=== PATIENT | female | born 1995 | race Hispanic/Latino ===

== ENCOUNTER 2018-02-24 00:09 | Emergency (ER) | payer SELFPAY ==
[2018-02-24 01:09] LABS: Absolute Lymphocytes (CBC) 1.5 K/uL (0.7-4.9); Absolute Monocytes 0.7 K/uL (0.1-1.3); Absolute Neutrophil 8.7 K/uL (1.8-8.0); Basophils % 0.1 % (0-1.3); Eosinophils % 0.1 % (0-4.4); Hematocrit 39.1 % (36.0-45.0); Lymphocytes % 13.4 % (15.3-44.8); MCH 31.1 pg (27.0-35.0); MCV 92.7 fL (80-100); MPV 7.7 fL (7.6-11.3); Monocytes % 6.3 % (3.3-12.3); RBC Red Blood Cell Count 4.22 M/uL (3.86-4.86)
[2018-02-24] MEDS ORDERED: NA CHLORIDE 0.9% 1,000 ML ONE (01:10)
[2018-02-24 01:13] LABS: Protime INR 1.08
[2018-02-24 01:22] LABS: Urine Blood 2+ (NEG); Urine Glucose NEGATIVE (NEG); Urine Protein 1+ (NEG); Urine Specific Gravity 1.025 (1.005-1.030)
[2018-02-24 01:23] LABS: Bicarbonate 26 mEq/L (21-31); Glucose Level 124 mg/dL (65-120); Potassium 3.1 mEq/L (3.6-5.0); Sodium Level 134 mEq/L (135-145)
[2018-02-24 01:29] LABS: ALT/SGPT 11 IU/L (10-60); AST/SGOT 18 IU/L (10-42); Albumin 4.8 g/dL (3.2-5.5); Alkaline Phosphatase 56 IU/L (42-121); BUN Blood Urea Nitrogen 14 mg/dL (6-20); Bilirubin Direct < 0.1 mg/dL (0-0.2); Bilirubin Total 0.5 mg/dL (0.3-1.2); Protein, Total 8.3 g/dL (6.0-8.3)
[2018-02-24 01:45] LABS: Barbiturates NEGATIVE; Benzodiazepines NEGATIVE; Cocaine NEGATIVE; METHAMPHETAM NEGATIVE; Opiates POSITIVE; Phencyclidine NEGATIVE; THC Cannibis NEGATIVE
[2018-02-24] MEDS ORDERED: NS KCL 20MEQ 1,000 ML IV ONE (02:17)
[2018-02-24] MEDS ORDERED: POTASSIUM CL SA 10 MEQ TAB PO ONE (02:37)
[2018-02-24 02:50] LABS: Alcohol Serum/Plasma < 10 mg/dl; Salicylates Level < 4.0 mg/dl (<30)
[2018-02-24] MEDS ORDERED: ONDANSETRON 4 MG/2 ML VIAL ONE (03:13)
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
--- NOTE | 2018-02-24 10:08 | EKG ---
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
== END 2018-02-24 05:09 | disposition home or self-care (01) ==
LOC: ER 00:09
DX: F43.21 Adjustment disorder with depressed mood (principal); T50.901A Poisoning by unspecified drugs, medicaments and biological substances, accidental (unintentional), initial encounter; Z91.040 Latex allergy status; Z91.048 Other nonmedicinal substance allergy status
CPT/HCPCS: 36415; 80048; 80076; 80307; 80320; 80329; 81003; 81025; 85025; 85610; 85730; 93005; 96361; 96374; 99285; J2405; J7030

== ENCOUNTER 2018-04-23 03:33 | Emergency (ER) | payer SELFPAY ==
[2018-04-23] MEDS ORDERED: ONDANSETRON 4 MG/2 ML VIAL ONE ×2 (04:33→06:20)
[2018-04-23 04:45] LABS: Absolute Lymphocytes (CBC) 0.6 K/uL (0.7-4.9); Absolute Monocytes 0.9 K/uL (0.1-1.3); Absolute Neutrophil 13.5 K/uL (1.8-8.0); Basophils % 0.1 % (0-1.3); Eosinophils % 0.4 % (0-4.4); Hematocrit 39.7 % (36.0-45.0); Lymphocytes % 4.1 % (15.3-44.8); MCH 31.6 pg (27.0-35.0); MCV 94.2 fL (80-100); MPV 7.6 fL (7.6-11.3); Monocytes % 5.9 % (3.3-12.3); RBC Red Blood Cell Count 4.22 M/uL (3.86-4.86)
[2018-04-23 05:07] LABS: Bicarbonate 26 mEq/L (21-31); Glucose Level 113 mg/dL (65-120); Lipase 29 U/L (22-51); Potassium 3.6 mEq/L (3.6-5.0); Sodium Level 138 mEq/L (135-145)
[2018-04-23 05:14] LABS: ALT/SGPT 10 IU/L (10-60); AST/SGOT 19 IU/L (10-42); Albumin 4.3 g/dL (3.2-5.5); Alkaline Phosphatase 50 IU/L (42-121); Amylase Level 118 U/L (28-100); BUN Blood Urea Nitrogen 16 mg/dL (6-20); Bilirubin Direct 0.1 mg/dL (0-0.2); Bilirubin Total 0.4 mg/dL (0.3-1.2); Protein, Total 7.8 g/dL (6.0-8.3)
[2018-04-23 05:34] LABS: Urine Culture Reflex Order NOT NEEDED
[2018-04-23 05:36] LABS: Urine Bacteria >50 /HPF (<20); Urine Mucus 4+ /HPF (NONE SEEN); Urine RBC <5 /HPF (NONE SEEN)
[2018-04-23 05:36] LABS: Urine Specific Gravity 1.025 (1.005-1.030)
[2018-04-23 05:37] LABS: Urine Blood NEGATIVE (NEG); Urine Glucose NEGATIVE (NEG); Urine Protein 1+ (NEG); Urine Specific Gravity 1.025 (1.005-1.030)
[2018-04-23 05:39] LABS: Blood Morphology Comment NOT SEEN (NOT SEEN); Platelet Estimate ADEQ
[2018-04-23] MEDS ORDERED: FENTANYL CITR 100 MCG/2 ML ONE (06:46)
[2018-04-23] MEDS ORDERED: KETOROLAC 30 MG/ML INJ ONE (07:26)
[2018-04-23] MEDS ORDERED: NA CHLORIDE 0.9% 1,000 ML ONE (07:26)
--- NOTE | 2018-04-23 08:55 | EDPHYS ---
Physician Documentation [facility] Name: Blank Armenta Age: 22 yrs Sex: Female : 1995 Arrival Date: 04/23/2018 Time: 03:36 Bed 19 Private MD: None, None ED Physician Timoteo Marin HPI: 04/23 04:39 This 22 yrs old Female presents to ER via Ambulatory with complaints of kira Vomiting, Abdominal Pain. 04:39 The patient presents to the emergency department with nausea, vomiting, that is kira continuous. Onset: The symptoms/episode began/occurred this morning, yesterday. Possible causes: unknown. The symptoms are aggravated by nothing. The symptoms are alleviated by nothing. Associated signs and symptoms: The patient has no apparent associated signs or symptoms. Severity of symptoms: At their worst the symptoms were mild moderate in the emergency department the symptoms are unchanged. The patient has experienced a previous episode. 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 - Social history:: Smoking status: Patient/guardian denies using tobacco, Patient/guardian denies using alcohol, street drugs. - Ebola Screening: : No symptoms or risks identified at this time. ROS: 04:41 Constitutional: Negative for fever, chills, and weight loss, Eyes: Negative for injury, kira pain, redness, and discharge, ENT: Negative for injury, pain, and discharge, Neck: Negative for injury, pain, and swelling, Cardiovascular: Negative for chest pain, palpitations, and edema, Respiratory: Negative for shortness of breath, cough, wheezing, and pleuritic chest pain, Back: Negative for injury and pain, : Negative for injury, bleeding, discharge, and swelling, MS/Extremity: Negative for injury and deformity, Skin: Negative for injury, rash, and discoloration, Neuro: Negative for headache, weakness, numbness, tingling, and seizure, Psych: Negative for depression, anxiety, suicide ideation, homicidal ideation, and hallucinations, Allergy/Immunology: Negative for hives, rash, and allergies, Endocrine: Negative for neck swelling, polydipsia, polyuria, polyphagia, and marked weight changes, Hematologic/Lymphatic: Negative for swollen nodes, abnormal bleeding, and unusual bruising. 04:41 Abdomen/GI: Positive for abdominal pain, nausea and vomiting, of the right upper quadrant, left upper quadrant, right lower quadrant and left lower quadrant. Exam: 04:41 Constitutional: This is a well developed, well nourished patient who is awake, alert, kira and in no acute distress. Head/Face: Normocephalic, atraumatic. Eyes: Pupils equal round and reactive to light, extra-ocular motions intact. Lids and lashes normal. Conjunctiva and sclera are non-icteric and not injected. Cornea within normal limits. Periorbital areas with no swelling, redness, or edema. ENT: Nares patent. No nasal discharge, no septal abnormalities noted. Tympanic membranes are normal and external auditory canals are clear. Oropharynx with no redness, swelling, or masses, exudates, or evidence of obstruction, uvula midline. Mucous membranes moist. Neck: Trachea midline, no thyromegaly or masses palpated, and no cervical lymphadenopathy. Supple, full range of motion without nuchal rigidity, or vertebral point tenderness. No Meningismus. Chest/axilla: Normal chest wall appearance and motion. Nontender with no deformity. No lesions are appreciated. Cardiovascular: Regular rate and rhythm with a normal S1 and S2. No gallops, murmurs, or rubs. Normal PMI, no JVD. No pulse deficits. Respiratory: Lungs have equal breath sounds bilaterally, clear to auscultation and percussion. No rales, rhonchi or wheezes noted. No increased work of breathing, no retractions or nasal flaring. Abdomen/GI: Soft, non-tender, with normal bowel sounds. No distension or tympany. No guarding or rebound. No evidence of tenderness throughout. 04:41 Back: No spinal tenderness. No costovertebral tenderness. Full range of motion. Vital Signs: 03:57 BP 113 / 80; Pulse 108; Resp 18 S; Temp 99(O); Pulse Ox 100% on R/A; Weight 45.36 kg bb (R); Height 5 ft. 0 in. (152.40 cm) (R); Pain 7/10; 04:44 BP 110 / 78; Pulse 110; Resp 18; Pulse Ox 99% ; ea 06:27 BP 109 / 68; Pulse 90; Resp 18 S; Pulse Ox 99% on R/A; ea 07:32 BP 101 / 68; Pulse 87; Resp 16; Temp 99; Pulse Ox 99% ; sv 08:38 BP 94 / 64; Pulse 70; Resp 16; Pulse Ox 98% ; sv 03:57 Body Mass Index 19.53 (45.36 kg, 152.40 cm) bb MDM: 04:10 Patient medically screened. [facility] 05:53 Data reviewed: vital signs, nurses notes, lab test result(s), amylase and lipase, [facility] urinalysis. 06:49 Counseling: I had a detailed discussion with the patient and/or guardian regarding: the snw historical points, exam findings, and any diagnostic results supporting the discharge/admit diagnosis. Awaiting: CT scan results, awaiting results, pt c/o pain. Fentanyl 25mcg iv given. 04/23 04:10 Order name: Amylase, Serum; Complete Time: 05:51 04/23 04:10 Order name: Basic Metabolic Panel; Complete Time: 05:51 04/23 04:10 Order name: CBC with Diff; Complete Time: 05:51 04/23 04:10 Order name: Creatinine for Radiology; Complete Time: 05:51 04/23 04:10 Order name: Hepatic Function; Complete Time: 05:51 04/23 04:10 Order name: Lipase; Complete Time: 05:51 04/23 04:10 Order name: Urine Microscopic Only; Complete Time: 05:51 04/23 04:10 Order name: Amylase, Serum [facility] 04/23 04:10 Order name: Basic Metabolic Panel [facility] 04/23 04:10 Order name: CBC with Diff [facility] 04/23 04:10 Order name: Creatinine for Radiology [facility] 04/23 04:10 Order name: Hepatic Function [facility] 04/23 04:10 Order name: Lipase [facility] 04/23 04:10 Order name: Urine Microscopic Only [facility] 04/23 04:10 Order name: IV Saline Lock; Complete Time: 04:52 04/23 04:10 Order name: Labs collected and sent; Complete Time: 04:52 04/23 04:10 Order name: Urine Dipstick-Ancillary (obtain specimen); Complete Time: 04:52 ea 04/23 04:10 Order name: Urine Test (obtain specimen); Complete Time: 04:16 kira 04/23 04:10 Order name: IV Saline Lock; Complete Time: 04:40 kira 04/23 04:10 Order name: Urine Culture [facility] 04/23 04:17 Order name: Urine Dipstick--Ancillary (enter results); Complete Time: 05:51 oe 04/23 04:18 Order name: Urine --Ancillary (enter results) 04/23 04:19 Order name: Urine --Ancillary; Complete Time: 05:51 EDMS 04/23 04:39 Order name: CT Abd/Pelvis - W/Contrast: iv only [facility] 04/23 05:01 Order name: Manual Differential; Complete Time: 05:51 EDMS 04/23 04:10 Order name: Labs collected and sent; Complete Time: 04:40 [facility] 04/23 04:10 Order name: Urine Dipstick-Ancillary (obtain specimen); Complete Time: 04:16 [facility] Administered Medications: 04:40 Drug: NS 0.9% 1000 ml Route: IV; Rate: 1 bolus; Site: left antecubital; ea 04:40 Drug: Zofran 4 mg Route: IVP; Site: left antecubital; ea 05:05 Follow up: Response: No adverse reaction; Marked relief of symptoms ea 06:50 Drug: fentaNYL (PF) 25 mcg Route: IVP; Site: left antecubital; ea 07:30 Follow up: Response: No adverse reaction sv 07:29 Drug: NS 0.9% 1000 ml Route: IV; Rate: 1 bolus; Site: left antecubital; sv 08:20 Follow up: Response: No adverse reaction; IV Status: Completed infusion; IV Intake: sv 1000ml 07:30 Drug: TORadol 30 mg Route: IVP; Site: left antecubital; sv 08:00 Follow up: Response: No adverse reaction sv Disposition: 04/23/18 08:54 Discharged to Home. Impression: Abdominal tenderness, Vomiting, Elevated white blood cell count. - Condition is Stable. - Discharge Instructions: Abdominal Pain, Adult, Nausea and Vomiting, Abdominal Pain, Adult, [id number]. - Prescriptions for Bentyl 20 mg Oral Tablet - take 1 tablet by ORAL route every 6 hours As needed; 20 tablet. Zofran 4 mg Oral Tablet - take 1 tablet by ORAL route every 12 hours As needed; 20 tablet. Pepcid 20 mg Oral Tablet - take 1 tablet by ORAL route every 12 hours for 10 days; 14 tablet. - Medication Reconciliation Form, Thank You Letter, Antibiotic Education, Prescription Opioid Use form. - Follow up: Private Physician; When: 2 - 3 days; Reason: Recheck today's complaints, Continuance of care, Re-evaluation by your physician. - Problem is new. - Symptoms have improved. Signatures: Dispatcher [employer] EDMS Sandy Murry, RN RN Timoteo Fox MD MD cha Therrien, Shelly, APPRAISER ART-C APPRAISER ART-Csnw Kiesha Thao, RN RN Vaishali Casper RN RN taina Corrections: (The following items were deleted from the chart) 09:04 08:54 04/23/2018 08:54 Discharged to Home. Impression: Abdominal tenderness; Vomiting; sv Elevated white blood cell count. Condition is Stable. Discharge Instructions: Abdominal Pain, Adult, Nausea and Vomiting, Abdominal Pain, Adult, [id number]. Prescriptions for Bentyl 20 mg Oral Tablet - take 1 tablet by ORAL route every 6 hours As needed; 20 tablet, Zofran 4 mg Oral Tablet - take 1 tablet by ORAL route every 12 hours As needed; 20 tablet, Pepcid 20 mg Oral Tablet - take 1 tablet by ORAL route every 12 hours for 10 days; 14 tablet. and Forms are Medication Reconciliation Form, Thank You Letter, Antibiotic Education, Prescription Opioid Use. Follow up: Private Physician; When: 2 - 3 days; Reason: Recheck today's complaints, Continuance of care, Re-evaluation by your physician. Problem is new. Symptoms have improved. snw
--- NOTE | 2018-04-23 08:55 | ER ---
Nurse's Notes [facility] Name: Blank Armenta Age: 22 yrs Sex: Female : 1995 Arrival Date: 04/23/2018 Time: 03:36 Bed 19 Private MD: None, None Diagnosis: Abdominal tenderness;Vomiting;Elevated white blood cell count Presentation: 04/23 03:55 Presenting complaint: Patient states: she vomited x 1 yesterday but has vomited many bb times since 2300 last night and has lower abdominal pain. Transition of care: patient was not received from another setting of care. Onset of symptoms was April 22, 2018. Risk Assessment: Do you want to hurt yourself or someone else? Patient reports no desire to harm self or others. Initial Sepsis Screen: Does the patient meet any 2 criteria? No. Patient's initial sepsis screen is negative. Does the patient have a suspected source of infection? No. Patient's initial sepsis screen is negative. Care prior to arrival: None. 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 - Social history:: Smoking status: Patient/guardian denies using tobacco, Patient/guardian denies using alcohol, street drugs. - Ebola Screening: : No symptoms or risks identified at this time. Screenin:40 Abuse screen: Denies threats or abuse. Nutritional screening: No deficits noted. ea Tuberculosis screening: No symptoms or risk factors identified. Fall Risk None identified. Assessment: 04:00 General: Appears uncomfortable, Behavior is calm, cooperative, appropriate for age. ea Pain: Complains of pain in right lower quadrant and left lower quadrant Pain currently is 9 out of 10 on a pain scale. Quality of pain is described as aching, crampy. Neuro: Level of Consciousness is awake, alert, obeys commands, Oriented to person, place, time, situation. Cardiovascular: Heart tones S1 S2 present Patient's skin is warm and dry. Respiratory: Airway is patent Breath sounds are clear. GI: Abdomen is distended, Bowel sounds present X 4 quads. Abd is soft and non tender. GI: Reports nausea, vomiting. : No signs and/or symptoms were reported regarding the genitourinary system. EENT: No signs and/or symptoms were reported regarding the EENT system. Derm: Skin is pink, warm \T\ dry. Musculoskeletal: No deficits noted. 05:06 Reassessment: Patient and/or family updated on plan of care and expected duration. Pain ea level reassessed. Pt resting with eyes closed, respirations even and unlabored, chest expansions even and symmetrical. 05:30 Reassessment: Pt taken to CT. ea 06:26 Reassessment: Patient and/or family updated on plan of care and expected duration. Pain ea level reassessed. Patient is alert, oriented x 3, equal unlabored respirations, skin warm/dry/pink. awaiting on results. 07:30 Reassessment: Patient appears in no apparent distress at this time. Patient and/or sv family updated on plan of care and expected duration. Pain level reassessed. Patient is alert, oriented x 3, equal unlabored respirations, skin warm/dry/pink. 08:38 Reassessment: Patient appears in no apparent distress at this time. Patient and/or sv family updated on plan of care and expected duration. Pain level reassessed. Patient is alert, oriented x 3, equal unlabored respirations, skin warm/dry/pink. Patient states feeling better. Patient states symptoms have improved. 09:03 Reassessment: Patient appears in no apparent distress at this time. Patient and/or sv family updated on plan of care and expected duration. Pain level reassessed. Patient is alert, oriented x 3, equal unlabored respirations, skin warm/dry/pink. Patient states feeling better. Patient states symptoms have improved. Vital Signs: 03:57 BP 113 / 80; Pulse 108; Resp 18 S; Temp 99(O); Pulse Ox 100% on R/A; Weight 45.36 kg bb (R); Height 5 ft. 0 in. (152.40 cm) (R); Pain 7/10; 04:44 BP 110 / 78; Pulse 110; Resp 18; Pulse Ox 99% ; ea 06:27 BP 109 / 68; Pulse 90; Resp 18 S; Pulse Ox 99% on R/A; ea 07:32 BP 101 / 68; Pulse 87; Resp 16; Temp 99; Pulse Ox 99% ; sv 08:38 BP 94 / 64; Pulse 70; Resp 16; Pulse Ox 98% ; sv 03:57 Body Mass Index 19.53 (45.36 kg, 152.40 cm) bb ED Course: 03:36 Patient arrived in ED. es 03:36 None, None is Private Physician. es 03:57 Triage completed. bb 03:57 Arm band placed on Patient placed in an exam room, on a stretcher, on pulse oximetry. bb Family accompanied patient. 04:00 Bed in low position. Call light in reach. Side rails up X2. ea 04:00 Inserted saline lock: 22 gauge in left antecubital area, using aseptic technique. Blood ea collected. 04:06 Vaishali Grewal, LANG is Primary Nurse. ea 04:09 Timoteo Marin MD is Attending Physician. kira 05:[address] via wheelchair. kw1 05:40 CT completed. Patient tolerated procedure well. Patient moved back from CT. kw1 05:41 CT Abd/Pelvis - W/Contrast: iv only In Process Unspecified. EDMS 06:31 Abi Dickerson FNP-C is [facility]. snw 07:13 Report given to Sandy CROFT. ea 07:56 Urine --Ancillary (enter results) Sent. sv 07:56 Amylase, Serum Sent. sv 07:56 Basic Metabolic Panel Sent. sv 07:56 CBC with Diff Sent. sv 07:56 Hepatic Function Sent. sv 07:56 Lipase Sent. sv 07:56 Creatinine for Radiology Sent. sv 08:27 Primary Nurse role handed off by Vaishali Grewal, LANG sv 08:27 Sandy Murry RN is Primary Nurse. sv 09:04 No provider procedures requiring assistance completed. IV discontinued, intact, sv bleeding controlled, No redness/swelling at site. Pressure dressing applied. Administered Medications: 04:40 Drug: NS 0.9% 1000 ml Route: IV; Rate: 1 bolus; Site: left antecubital; ea 04:40 Drug: Zofran 4 mg Route: IVP; Site: left antecubital; ea 05:05 Follow up: Response: No adverse reaction; Marked relief of symptoms ea 06:50 Drug: fentaNYL (PF) 25 mcg Route: IVP; Site: left antecubital; ea 07:30 Follow up: Response: No adverse reaction sv 07:29 Drug: NS 0.9% 1000 ml Route: IV; Rate: 1 bolus; Site: left antecubital; sv 08:20 Follow up: Response: No adverse reaction; IV Status: Completed infusion; IV Intake: sv 1000ml 07:30 Drug: TORadol 30 mg Route: IVP; Site: left antecubital; sv 08:00 Follow up: Response: No adverse reaction sv Intake: 08:20 IV: 1000ml; Total: 1000ml. sv Outcome: 08:54 Discharge ordered by MD. snw 09:04 Discharged to home ambulatory, with family. sv 09:04 Condition: stable 09:04 Discharge instructions given to patient, Instructed on discharge instructions, follow up and referral plans. medication usage, Demonstrated understanding of instructions, follow-up care, medications, Prescriptions given X 3. 09:04 Patient left the ED. sv Signatures: Dispatcher [employer] Sandy Stone, Timoteo Johnson RN, MD MD cha Therrien, Shelly, FISHING CAPTAIN-C FISHING CAPTAIN-Csnw Rose Vazquez Brenda, RN RN bb Antunez, Elena, RN RN ea Wilhelm, Kimberly kw1 Corrections: (The following items were deleted from the chart) 07:33 07:32 Temp 99F; sv sv
--- NOTE | 2018-04-23 10:08 | RAD REPORT ---
EXAM DESCRIPTION: CT - Abdomen Pelvis W Contrast - 04/23/2018 6:49 am CLINICAL HISTORY: Abdominal pain, vomiting, diarrhea A preliminary written report was provided at the time of the study, and the report was reviewed prio r to final dictation. COMPARISON: CT imaging March 2016 TECHNIQUE: Biphasic, helical CT imaging of the abdomen and pelvis was performed following 100 ml non -ionic IV contrast. No oral contrast was given. All CT scans are performed using dose optimization technique as appropriate and may include automated exposure control or mA/KV adjustment according to patient size. FINDINGS: No suspicious findings in the lung bases. The liver, spleen, and pancreas show no suspicious findings. Gallbladder and biliary tree are also wi thout suspicious finding. Symmetric renal function is seen with no hydronephrosis or suspicious renal mass. No pyelonephritis o r acute renal parenchymal process. No urinary bladder abnormality. Uterus and right ovary show no corrine picious findings. Posterior left pelvis shows probable involuting cyst of the left ovary. Primary ova per process is not suspected. Fluid is retained within the stomach. No gastric wall thickening or mass. Numerous prominent small tatiana wel loops. Each monreal of the jejunum are thickened. Overall small bowel monreal are prominent. Liquid s tool is present throughout much of the colon. No mass lesions seen. No free air, free fluid or pneuma tosis. No hernia, mass or bulky lymphadenopathy. No adrenal abnormality. No suspicious bony findings. IMPRESSION: Moderate small bowel enteritis pattern which may include colon to a lesser degree. No obstruction, free air or surgically emergent finding.
== END 2018-04-23 09:04 | disposition home or self-care (01) ==
LOC: ER 03:33
DX: R11.10 Vomiting, unspecified (principal); D72.829 Elevated white blood cell count, unspecified; Z91.040 Latex allergy status; Z91.048 Other nonmedicinal substance allergy status
CPT/HCPCS: 36415; 74177; 80048; 80076; 81003; 81015; 81025; 82150; 83690; 85025; 87077; 87086; 87088; 87186; 96361; 96374; 96375; 99284; J2405; J3010; J7030; Q9967

== ENCOUNTER 2018-07-28 23:19 | Emergency (ER) | payer SELFPAY ==
[2018-07-29 00:44] LABS: Absolute Lymphocytes (CBC) 2.5 K/uL (0.7-4.9); Absolute Monocytes 0.4 K/uL (0.1-1.3); Absolute Neutrophil 4.1 K/uL (1.8-8.0); Basophils % 0.3 % (0-1.3); Eosinophils % 1.1 % (0-4.4); Hematocrit 33.1 % (36.0-45.0); Lymphocytes % 35.3 % (15.3-44.8); MCH 33.7 pg (27.0-35.0); MCV 94.6 fL (80-100); MPV 8.1 fL (7.6-11.3); Monocytes % 6.1 % (3.3-12.3)
[2018-07-29 01:06] LABS: BUN Blood Urea Nitrogen 13 mg/dL (7-18); Bicarbonate 25 mmol/L (21-32); Glucose Level 85 mg/dL (74-106); Potassium 3.4 mmol/L (3.5-5.1); Sodium Level 137 mmol/L (136-145)
[2018-07-29 01:13] LABS: HCG, Quantitative 91944 mIU/mL (1-3)
[2018-07-29 01:39] LABS: Urine Blood NEGATIVE (NEG); Urine Glucose NEGATIVE (NEG); Urine Protein NEGATIVE (NEG)
--- NOTE | 2018-07-29 03:28 | EDPHYS ---
Physician Documentation [facility] Name: Blank Armenta Age: 22 yrs Sex: Female : 1995 Arrival Date: 07/28/2018 Time: 23:24 Bed 6 Private MD: ED Physician Joey Hu HPI: 07/28 23:55 This 22 yrs old Female presents to ER via Ambulatory with complaints of ps1 Abdominal Pain, Nausea/Vomiting, preg 11wks. 23:55 patient recently evaluated in [place] for abdominal pain and sent home with ps1 possible bacteria in stomach. Patient states she has not had a ultrasound. Pain in LLQ. Associated with nausea and vomiting. . 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 - Social history:: Smoking status: Patient/guardian denies using tobacco. - Ebola Screening: : No symptoms or risks identified at this time. ROS: 23:55 Constitutional: Negative for fever, chills, and weight loss, Eyes: Negative for injury, ps1 pain, redness, and discharge, Cardiovascular: Negative for chest pain, palpitations, and edema, Respiratory: Negative for shortness of breath, cough, wheezing, and pleuritic chest pain. 23:55 : Negative for injury, bleeding, discharge, and swelling, MS/Extremity: Negative for injury and deformity, Skin: Negative for injury, rash, and discoloration, Neuro: Negative for headache, weakness, numbness, tingling, and seizure. 23:55 Abdomen/GI: Positive for abdominal pain, nausea and vomiting. Exam: 23:55 Constitutional: This is a well developed, well nourished patient who is awake, alert, ps1 and in no acute distress. Head/Face: Normocephalic, atraumatic. Eyes: Pupils equal round and reactive to light, extra-ocular motions intact. Lids and lashes normal. Conjunctiva and sclera are non-icteric and not injected. Cardiovascular: Regular rate and rhythm. No gallops, murmurs, or rubs. Normal PMI, no JVD. No pulse deficits. Respiratory: Lungs have equal breath sounds bilaterally, clear to auscultation and percussion. No rales, rhonchi or wheezes noted. No increased work of breathing, no retractions or nasal flaring. Skin: Warm, dry with normal turgor. Normal color with no rashes, no lesions, and no evidence of cellulitis. MS/ Extremity: Pulses equal, no cyanosis. Neurovascular intact. Full, normal range of motion. Neuro: Awake and alert, GCS 15, oriented to person, place, time, and situation. Cranial nerves II-XII grossly intact. Sensory grossly intact. 23:55 Abdomen/GI: Inspection: abdomen appears normal, Bowel sounds: normal, Palpation: mild abdominal tenderness, in the left lower quadrant. Vital Signs: 23:41 BP 102 / 64; Pulse 77; Resp 18; Temp 97.8; Pulse Ox 100% on R/A; Weight 36.29 kg; ea Height 5 ft. (152.40 cm); Pain 7/10; 07/29 00:30 BP 106 / 62; Pulse 64; Resp 18; Pulse Ox 98% on R/A; ea 01:30 BP 110 / 66; Pulse 70; Resp 18; Pulse Ox 99% on R/A; ea 02:30 BP 100 / 60; Pulse 68; Resp 18; Pulse Ox 98% on R/A; ea 03:44 BP 99 / 65; Pulse 65; Resp 18; Pulse Ox 99% on R/A; tl2 07/28 23:41 Body Mass Index 15.62 (36.29 kg, 152.40 cm) ea MDM: 00:00 Patient medically screened. ps1 03:30 Data reviewed: vital signs, nurses notes, lab test result(s), radiologic studies, ps1 ultrasound, and as a result, I will discharge patient. Counseling: I had a detailed discussion with the patient and/or guardian regarding: the historical points, exam findings, and any diagnostic results supporting the discharge/admit diagnosis, lab results, the need for outpatient follow up, an OB/Gyne specialist. 07/28 23:55 Order name: Quantitative Hcg; Complete Time: 01:14 ps1 07/28 23:55 Order name: Abo/rh Typing; Complete Time: 02:33 ps1 07/28 23:55 Order name: Basic Metabolic Panel; Complete Time: 01:14 ps1 07/28 23:55 Order name: CBC with Diff; Complete Time: 00:49 ps1 07/28 23:59 Order name: Urine Dipstick--Ancillary (enter results); Complete Time: 01:58 rg2 07/28 23:59 Order name: Urine --Ancillary (enter results); Complete Time: 01:58 rg2 07/28 23:55 Order name: Urine Test (obtain specimen); Complete Time: 00:07 ps1 07/28 23:55 Order name: IV Saline Lock; Complete Time: 00:09 ps1 07/28 23:55 Order name: Labs collected and sent; Complete Time: 00:11 ps1 07/28 23:55 Order name: NPO; Complete Time: 00:07 ps1 07/28 23:55 Order name: Urine Dipstick-Ancillary (obtain specimen); Complete Time: 00:07 ps1 07/29 01:15 Order name: Transvaginal OB ps1 Administered Medications: No medications were administered Disposition: 07/29/18 03:27 Discharged to Home. Impression: Abdominal and pelvic pain, related conditions, unspecified. - Condition is Stable. - Discharge Instructions: Abdominal Pain, Adult, Abdominal Pain During . - Prescriptions for Reglan 10 mg Oral Tablet - take 1 tablet by ORAL route every 6 hours PRN take 30 minutes before meals and at bedtime; 20 tablet. - School release form, Medication Reconciliation Form, Thank You Letter, Antibiotic Education, Prescription Opioid Use form. - Follow up: Law Andres MD; When: As needed; Reason: Further diagnostic work-up, Recheck today's complaints, Continuance of care, Re-evaluation by your physician. Follow up: Emergency Department; When: As needed; Reason: Fever > 102 F, Trouble breathing, Worsening of condition. - Problem is an ongoing problem. - Symptoms have improved. Signatures: Dispatcher [employer] EDMS Katy Gaines RN RN tl2 Vaishali Grewal RN RN ea Singer, Phillip, MD MD ps1 Corrections: (The following items were deleted from the chart) 03:47 03:27 07/29/2018 03:27 Discharged to Home. Impression: Abdominal and pelvic pain; tl2 related conditions, unspecified. Condition is Stable. Forms are Medication Reconciliation Form, Thank You Letter, Antibiotic Education, Prescription Opioid Use. Follow up: Law Andres; When: As needed; Reason: Further diagnostic work-up, Recheck today's complaints, Continuance of care, Re-evaluation by your physician. Follow up: Emergency Department; When: As needed; Reason: Fever > 102 F, Trouble breathing, Worsening of condition. Problem is an ongoing problem. Symptoms have improved. ps1
--- NOTE | 2018-07-29 03:28 | ER ---
Nurse's Notes [facility] Name: Blank Armenta Age: 22 yrs Sex: Female : 1995 Arrival Date: 07/28/2018 Time: 23:24 Bed 6 Private MD: Diagnosis: Abdominal and pelvic pain; related conditions, unspecified Presentation: 07/28 23:41 Presenting complaint: Patient states: She started having abdominal pain two weeks ago, ea pt states "I went to a clinic and had blood work about a week ago, but never heard anything back". Transition of care: patient was not received from another setting of care. Onset of symptoms was July 28, 2018. Risk Assessment: Do you want to hurt yourself or someone else? Patient reports no desire to harm self or others. Initial Sepsis Screen: Does the patient meet any 2 criteria? No. Patient's initial sepsis screen is negative. Does the patient have a suspected source of infection? No. Patient's initial sepsis screen is negative. Care prior to arrival: None. 23:41 Method Of Arrival: Ambulatory ea 23:41 Acuity: TEREZA 3 ea Triage Assessment: 23:45 General: Appears in no apparent distress. uncomfortable, Behavior is calm, cooperative, ea appropriate for age. Pain: Complains of pain in right upper quadrant, right lower quadrant and left lower quadrant Pain currently is 7 out of 10 on a pain scale. Quality of pain is described as aching, Pain began 2 weeks ago Is continuous. EENT: No signs and/or symptoms were reported regarding the EENT system. Neuro: Level of Consciousness is awake, alert, obeys commands, Oriented to person, place, time, situation. Cardiovascular: Heart tones S1 S2 present Patient's skin is warm and dry. Respiratory: Airway is patent Respiratory effort is even, unlabored, Respiratory pattern is regular, symmetrical, Breath sounds are clear bilaterally. GI: Abdomen is flat, Bowel sounds present X 4 quads. Reports lower abdominal pain, upper abdominal pain, nausea, vomiting, since 2 weeks. : No signs and/or symptoms were reported regarding the genitourinary system. Derm: Skin is pink, warm \\T\\ dry. 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 - Social history:: Smoking status: Patient/guardian denies using tobacco. - Ebola Screening: : No symptoms or risks identified at this time. Screenin:50 Abuse screen: Denies threats or abuse. Nutritional screening: No deficits noted. ea Tuberculosis screening: No symptoms or risk factors identified. Fall Risk None identified. Assessment: 07/29 01:43 Reassessment: US at bedside. tl2 02:27 Reassessment: Patient and/or family updated on plan of care and expected duration. Pain ea level reassessed. Pt resting with eyes closed, respirations even and unlabored, chest expansions even and symmetrical. No s/s of pain or discomfort noted at this time. 03:44 Reassessment: Patient appears in no apparent distress at this time. Patient and/or tl2 family updated on plan of care and expected duration. Pain level reassessed. Patient is alert, oriented x 3, equal unlabored respirations, skin warm/dry/pink. Pt verbalized understanding of discharge instructions, need for follow up and prescription usage. Vital Signs: 07/28 23:41 BP 102 / 64; Pulse 77; Resp 18; Temp 97.8; Pulse Ox 100% on R/A; Weight 36.29 kg; ea Height 5 ft. (152.40 cm); Pain 7/10; 07/29 00:30 BP 106 / 62; Pulse 64; Resp 18; Pulse Ox 98% on R/A; ea 01:30 BP 110 / 66; Pulse 70; Resp 18; Pulse Ox 99% on R/A; ea 02:30 BP 100 / 60; Pulse 68; Resp 18; Pulse Ox 98% on R/A; ea 03:44 BP 99 / 65; Pulse 65; Resp 18; Pulse Ox 99% on R/A; tl2 07/28 23:41 Body Mass Index 15.62 (36.29 kg, 152.40 cm) ea ED Course: 07/28 23:24 Patient arrived in ED. am2 23:41 Arm band placed on right wrist. Patient placed in an exam room, on a stretcher, on ea pulse oximetry. 23:41 Patient has correct armband on for positive identification. Bed in low position. Call ea light in reach. Side rails up X2. 23:44 Triage completed. ea 23:46 Joey Hu MD is Attending Physician. ps1 07/29 00:08 Vaishali Grewal, RN is Primary Nurse. ea 01:53 Ultrasound completed. Patient tolerated well. aa4 01:55 Transvaginal OB US In Process Unspecified. EDMS 03:27 Law Andres MD is Referral Physician. ps1 03:44 No provider procedures requiring assistance completed. Patient did not have IV access tl2 during this emergency room visit. Administered Medications: No medications were administered Outcome: 03:27 Discharge ordered by . ps1 03:44 Discharged to home ambulatory, with family. tl2 03:44 Condition: stable 03:44 Discharge instructions given to patient, family, Instructed on discharge instructions, follow up and referral plans. medication usage, Demonstrated understanding of instructions, follow-up care, medications, Prescriptions given X 1. 03:47 Patient left the ED. tl2 Signatures: Dispatcher [employer] EDMD Alisha Chacko aa4 Katy Gaines, RN RN tl2 Alisha Chang am2 Vaishali Grewal, RN RN Joey Marks MD MD ps1
--- NOTE | 2018-07-29 06:04 | RAD REPORT ---
EXAM DESCRIPTION: US - Transvaginal OB - 07/29/2018 1:55 am CLINICAL HISTORY: with abdominal pain and vaginal bleeding COMPARISON: None. FINDINGS: The uterus measures 9 x 5 x 8 centimeters. A gestational sac is present within the endome trium. Within this is a yolk sac and pole with a crown-rump length 12.3 centimeters. Cardiac ac tivity 175 beats per minute The ovaries are normal in size and echotexture. No significant free fluid is seen. IMPRESSION: Single live intrauterine with an estimated gestational age 9 weeks 0 days MILENA 03/03/2019
== END 2018-07-29 03:47 | disposition home or self-care (01) ==
LOC: ER 23:19
DX: R10.2 Pelvic and perineal pain (principal); Z3A.11 11 weeks gestation of pregnancy; Z91.040 Latex allergy status; Z91.048 Other nonmedicinal substance allergy status
CPT/HCPCS: 36415; 76817; 80048; 81003; 81025; 84702; 85025; 86900; 86901; 99283

== ENCOUNTER 2018-08-21 14:52 | Emergency (ER) | payer OTHER, SELFPAY ==
[2018-08-21] MEDS ORDERED: FAMOTIDINE 20 MG/2 ML VIAL IV ONE (16:19)
[2018-08-21] MEDS ORDERED: ONDANSETRON 4 MG/2 ML VIAL ONE (16:19)
[2018-08-21] MEDS ORDERED: NA CHLORIDE 0.9% 1,000 ML ONE (16:19)
[2018-08-21 16:58] LABS: Absolute Lymphocytes (CBC) 1.1 K/uL (0.7-4.9); Absolute Monocytes 0.4 K/uL (0.1-1.3); Absolute Neutrophil 7.6 K/uL (1.8-8.0); Basophils % 0.1 % (0-1.3); Eosinophils % 0.1 % (0-4.4); Hematocrit 33.4 % (36.0-45.0); Lymphocytes % 12.3 % (15.3-44.8); MCH 33.7 pg (27.0-35.0); MCV 93.1 fL (80-100); MPV 7.3 fL (7.6-11.3); Monocytes % 4.2 % (3.3-12.3); RBC Red Blood Cell Count 3.59 M/uL (3.86-4.86)
[2018-08-21 17:22] LABS: ALT/SGPT 13 U/L (12-78); AST/SGOT 13 U/L (15-37); Albumin 3.3 g/dL (3.4-5.0); Alkaline Phosphatase 46 U/L (45-117); BUN Blood Urea Nitrogen 10 mg/dL (7-18); Bicarbonate 24 mmol/L (21-32); Bilirubin Direct < 0.1 mg/dL (0-0.2); Bilirubin Total 0.3 mg/dL (0.2-1.0); Glucose Level 88 mg/dL (74-106); HCG, Quantitative 105830 mIU/mL (1-3); Lipase 174 U/L (73-393); Potassium 3.5 mmol/L (3.5-5.1); Protein, Total 7.2 g/dL (6.4-8.2); Sodium Level 137 mmol/L (136-145)
--- NOTE | 2018-08-21 18:37 | RAD REPORT ---
EXAM DESCRIPTION: US - Transvaginal OB - 08/21/2018 6:20 pm CLINICAL HISTORY: NAUSEA/VOMITING COMPARISON: Transvaginal OB dated 07/29/2018 FINDINGS: A single gestational sac is seen within the uterus. The shape of the sac is within normal limits for gestational age. Within the sac is a single pole with crown-rump length of 6.1 cm, c orrelating to estimated gestational age of 12 weeks 4 days. Estimated date of delivery is 03/01/2019. Heart rate is 150 BPM.. Placenta is posterior fundal. The maternal adnexa and ovaries are within normal limits. Normal Doppler blood flow was demonstrated to both ovaries. IMPRESSION: Single live early intrauterine gestation with estimated gestational age of 12 weeks 4 da ys, MILENA 03/01/2019. No unusual or unexpected finding.
--- NOTE | 2018-08-21 18:48 | ER ---
Nurse's Notes [facility] Name: Blank Armenta Age: 22 yrs Sex: Female : 1995 Arrival Date: 08/21/2018 Time: 14:55 Bed 28 Private MD: Diagnosis: Nausea and vomiting; related conditions, unspecified, first trimester Presentation: 08/21 15:17 Presenting complaint: Patient states: Rosi been having nausea and vomiting, and im not sg able to hold anything down. Im about 12 wks . Transition of care: patient was not received from another setting of care. Onset of symptoms was August 21, 2018. Risk Assessment: Do you want to hurt yourself or someone else? Patient reports no desire to harm self or others. Care prior to arrival: None. 15:17 Method Of Arrival: Ambulatory sg 15:17 Acuity: TEREZA 3 sg 16:35 Initial Sepsis Screen: Does the patient meet any 2 criteria? No. Patient's initial mg2 sepsis screen is negative. Does the patient have a suspected source of infection? No. Patient's initial sepsis screen is negative. 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 - Social history:: Smoking status: Patient/guardian denies using tobacco. - Ebola Screening: : Patient negative for fever greater than or equal to 101.5 degrees Fahrenheit, and additional compatible Ebola Virus Disease symptoms Patient denies exposure to infectious person Patient denies travel to an Ebola-affected area in the 21 days before illness onset No symptoms or risks identified at this time. Screenin:52 Abuse screen: Denies threats or abuse. Denies injuries from another. Nutritional mg2 screening: No deficits noted. Tuberculosis screening: No symptoms or risk factors identified. Fall Risk None identified. Assessment: 16:33 General: Appears in no apparent distress. comfortable, Behavior is calm, cooperative. mg2 Pain: Complains of pain in abdomen Pain does not radiate. Pain currently is 3 out of 10 on a pain scale. Quality of pain is described as aching, Pain began gradually, Is intermittent. Neuro: Level of Consciousness is awake, alert, obeys commands, Oriented to person, place, time, situation. Cardiovascular: Capillary refill < 3 seconds Patient's skin is warm and dry. Respiratory: Airway is patent Respiratory effort is even, unlabored, Respiratory pattern is regular, symmetrical. GI: Abdomen is flat, non-distended. : No signs and/or symptoms were reported regarding the genitourinary system. EENT: No signs and/or symptoms were reported regarding the EENT system. Derm: No signs and/or symptoms reported regarding the dermatologic system. Skin is intact, is healthy with good turgor, Skin is pink, warm \T\ dry. normal. Musculoskeletal: No signs and/or symptoms reported regarding the musculoskeletal system. 17:44 Reassessment: Patient appears in no apparent distress at this time. Patient and/or mg2 family updated on plan of care and expected duration. Pain level reassessed. Patient is alert, oriented x 3, equal unlabored respirations, skin warm/dry/pink. Vital Signs: 15:20 BP 102 / 72; Pulse 96; Resp 17; Temp 97.6; Pulse Ox 98% on R/A; Pain 0/10; iw 16:33 BP 108 / 52 Supine; mg2 16:33 BP 100 / 60 Sitting; mg2 16:33 BP 109 / 75 Standing; mg2 17:42 BP 99 / 59; Pulse 74; Resp 18; Pulse Ox 100% on R/A; mg2 18:01 Weight 39.69 kg; mg2 19:03 BP 100 / 59; Pulse 80; Resp 18; Pulse Ox 100% on R/A; Pain 0/10; mg2 ED Course: 14:55 Patient arrived in ED. mr 15:15 Arm band placed on. sg 15:18 Triage completed. sg 15:44 Timoteo Matson PA is PHCP. cp 15:45 Ronan Sanchez MD is Attending Physician. cp 15:51 Pablito Mares RN is Primary Nurse. mg2 16:32 No provider procedures requiring assistance completed. Inserted saline lock: 20 gauge mg2 in left antecubital area, using aseptic technique. Blood collected. 16:34 Patient has correct armband on for positive identification. Placed in gown. Pulse ox mg2 on. NIBP on. 18:20 US Transvaginal Ob In Process Unspecified. EDMS 18:20 Ultrasound completed. Patient tolerated well. Notified ETCHER HAND/PA page. sg3 18:46 Jv Cronin MD is Referral Physician. cp 19:02 IV discontinued, intact, bleeding controlled, No redness/swelling at site. Pressure mg2 dressing applied. Administered Medications: 16:31 Drug: NS 0.9% 1000 ml Route: IV; Rate: 1 bolus; Site: left antecubital; mg2 18:08 Follow up: Response: No adverse reaction; IV Status: Completed infusion mg2 16:31 Drug: Zofran 4 mg Route: IVP; Site: left antecubital; mg2 18:08 Follow up: Response: No adverse reaction; Marked relief of symptoms mg2 16:31 Drug: Pepcid 20 mg Route: IVP; Site: left antecubital; mg2 18:01 Follow up: Response: No adverse reaction; Marked relief of symptoms mg2 Outcome: 18:47 Discharge ordered by MD. cp 19:02 Discharged to home ambulatory, with family. mg2 19:02 Condition: stable 19:02 Discharge instructions given to patient, family, Instructed on discharge instructions, follow up and referral plans. medication usage, Demonstrated understanding of instructions, follow-up care, medications, Prescriptions given X 4. 19:18 Patient left the ED. mg2 Signatures: Dispatcher [employer] EDMS Huseyin Morales RN RN sg Paige Dumas Irene, RN RN iw Page, Corey, PA PA cp Asha Guerra sg3 Pablito Mares RN RN mg2
--- NOTE | 2018-08-21 18:48 | EDPHYS ---
Physician Documentation [facility] Name: Blank Armenta Age: 22 yrs Sex: Female : 1995 Arrival Date: 08/21/2018 Time: 14:55 Bed 28 Private MD: ED Physician Ronan Sanchez HPI: 08/21 16:00 This 22 yrs old Female presents to ER via Ambulatory with complaints of cp Decreased Appetite, 12 wks . 16:00 The patient presents to the emergency department with nausea and vomiting, that started cp 3 weeks ago, and is intermittent, decreased appetite. The estimated gestational age is 13 weeks. course: care: none, Leakage of Fluid: none appreciated. Associated signs and symptoms: Pertinent negatives: abdominal pain, chest pain, diarrhea, dysuria, vaginal bleeding, vaginal discharge. 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 - Social history:: Smoking status: Patient/guardian denies using tobacco. - Ebola Screening: : Patient negative for fever greater than or equal to 101.5 degrees Fahrenheit, and additional compatible Ebola Virus Disease symptoms Patient denies exposure to infectious person Patient denies travel to an Ebola-affected area in the 21 days before illness onset No symptoms or risks identified at this time. ROS: 16:05 Constitutional: Positive for poor PO intake, Negative for body aches, chills, fever. cp 16:05 Eyes: Negative for injury, pain, redness, and discharge. cp 16:05 ENT: Negative for drainage from ear(s), ear pain, sore throat, difficulty swallowing, difficulty handling secretions. 16:05 Cardiovascular: Negative for chest pain, palpitations. 16:05 Respiratory: Negative for cough, shortness of breath, wheezing. 16:05 Abdomen/GI: Positive for nausea and vomiting, anorexia, Negative for abdominal pain, diarrhea, constipation. 16:05 Back: Negative for radiated pain. 16:05 : Negative for urinary symptoms, flank pain, vaginal bleeding, vaginal discharge. 16:05 Skin: Negative for cellulitis, rash. 16:05 Neuro: Negative for altered mental status, headache, weakness. 16:05 All other systems are negative. Exam: 16:10 Constitutional: The patient appears in no acute distress, alert, awake, non-toxic, well cp developed, well nourished. 16:10 Head/Face: Normocephalic, atraumatic. cp 16:10 Eyes: Periorbital structures: appear normal, Pupils: equal, round, and reactive to light and accomodation, Extraocular movements: intact throughout, Conjunctiva: normal, no exudate, no injection, Sclera: no appreciated abnormality, Lids and lashes: appear normal, bilaterally. 16:10 ENT: External ear(s): are unremarkable, Ear canal(s): are normal, clear, TM's: bulging, is not appreciated, bilaterally, dullness, bilaterally, erythema, is not appreciated, bilaterally, Nose: is normal, Mouth: Lips: dry, Oral mucosa: moist, Posterior pharynx: Airway: no evidence of obstruction, patent, Tonsils: are normal in appearance, Uvula: midline, swelling, is not appreciated, erythema, is not appreciated, exudate, is not appreciated. 16:10 Neck: ROM/movement: is normal, is supple, without pain, no range of motions limitations, no meningismus, no nuchal rigidity. 16:10 Chest/axilla: Inspection: normal, Palpation: is normal, no crepitus, no tenderness. 16:10 Cardiovascular: Rate: normal, Rhythm: regular. 16:10 Respiratory: the patient does not display signs of respiratory distress, Respirations: normal, no use of accessory muscles, no retractions, no splinting, no tachypnea, labored breathing, is not present, Breath sounds: are clear throughout, no decreased breath sounds, no stridor, no wheezing. 16:10 Abdomen/GI: Inspection: abdomen appears normal, Bowel sounds: active, all quadrants, Palpation: abdomen is soft and non-tender, in all quadrants, rebound tenderness, is not appreciated, voluntary guarding, is not appreciated, involuntary guarding, is not appreciated. 16:10 Back: pain, is absent, ROM is normal. 16:10 Skin: cellulitis, is not appreciated, no rash present. 16:10 Neuro: Orientation: to person, place \T\ time. Mentation: lucid, able to follow commands, Cerebellar function: is grossly normal, Motor: moves all fours, strength is normal, Sensation: no obvious gross deficits. Vital Signs: 15:20 BP 102 / 72; Pulse 96; Resp 17; Temp 97.6; Pulse Ox 98% on R/A; Pain 0/10; iw 16:33 BP 108 / 52 Supine; mg2 16:33 BP 100 / 60 Sitting; mg2 16:33 BP 109 / 75 Standing; mg2 17:42 BP 99 / 59; Pulse 74; Resp 18; Pulse Ox 100% on R/A; mg2 18:01 Weight 39.69 kg; mg2 19:03 BP 100 / 59; Pulse 80; Resp 18; Pulse Ox 100% on R/A; Pain 0/10; mg2 MDM: 15:45 Patient medically screened. cp 16:00 Differential diagnosis: dehydration, hyperemesis gravi dum, electrolyte abnormality, cp miscarriage, UTI. 18:45 Data reviewed: vital signs, nurses notes, lab test result(s), radiologic studies, cp ultrasound. 18:45 Counseling: I had a detailed discussion with the patient and/or guardian regarding: the cp historical points, exam findings, and any diagnostic results supporting the discharge/admit diagnosis, lab results, radiology results, the need for outpatient follow up, an OB/Gyne specialist, to return to the emergency department if symptoms worsen or persist or if there are any questions or concerns that arise at home. Response to treatment: the patient's symptoms have markedly improved after treatment, Nausea markedly improved. Will discharge to home for continued monitoring. 08/21 16:08 Order name: Basic Metabolic Panel; Complete Time: 17:47 08/21 16:08 Order name: CBC with Diff; Complete Time: 17:15 08/21 17:16 Interpretation: Normal except: RBC 3.59; HCT 33.4; MCHC 36.2; MPV 7.3; MARGARITO% 83.3; LYM% cp 12.3. 08/21 16:08 Order name: Creatinine for Radiology; Complete Time: 17:15 08/21 17:16 Interpretation: Reviewed. 08/21 16:08 Order name: Hepatic Function; Complete Time: 17:47 cp 08/21 17:47 Interpretation: Normal except: AST 13; ALB 3.3; GLOB 3.9; A/G 0.8. 08/21 16:08 Order name: Lipase; Complete Time: 17:47 cp 08/21 16:08 Order name: Quantitative Hcg; Complete Time: 17:47 cp 08/21 15:45 Order name: Urine Dipstick-Ancillary (obtain specimen); Complete Time: 16:11 cp 08/21 16:08 Order name: Rh Typing; Complete Time: 17:15 cp 08/21 16:09 Order name: US Transvaginal Ob; Complete Time: 18:44 cp 08/21 16:13 Order name: Urine Dipstick--Ancillary (enter results) eb 08/21 16:13 Order name: Urine --Ancillary (enter results) eb 08/21 15:45 Order name: Urine Test (obtain specimen); Complete Time: 16:11 cp 08/21 15:57 Order name: Orthostatics; Complete Time: 16:33 cp 08/21 16:08 Order name: IV Saline Lock; Complete Time: 16:33 cp 08/21 16:08 Order name: Labs collected and sent; Complete Time: 16:33 cp 08/21 16:08 Order name: Misc. Order: patient weight; Complete Time: 18:10 cp 08/21 17:48 Order name: PO challenge; Complete Time: 18:36 cp Administered Medications: 16:31 Drug: NS 0.9% 1000 ml Route: IV; Rate: 1 bolus; Site: left antecubital; mg2 18:08 Follow up: Response: No adverse reaction; IV Status: Completed infusion mg2 16:31 Drug: Zofran 4 mg Route: IVP; Site: left antecubital; mg2 18:08 Follow up: Response: No adverse reaction; Marked relief of symptoms mg2 16:31 Drug: Pepcid 20 mg Route: IVP; Site: left antecubital; mg2 18:01 Follow up: Response: No adverse reaction; Marked relief of symptoms mg2 Disposition: 08/21/18 18:47 Discharged to Home. Impression: Nausea and vomiting, related conditions, unspecified, first trimester. - Condition is Stable. - Discharge Instructions: Abdominal Pain During , Nausea and Vomiting, Adult, First Trimester of , [id number], Second Trimester of , [id number]. - Prescriptions for Pepcid 20 mg Oral Tablet - take 1 tablet by ORAL route every 12 hours for 10 days; 20 tablet. Vitamin 27- 0.8 mg Oral Tablet - take 1 tablet by ORAL route once daily; 60 tablet. Phenergan 25 mg Rectal Suppository - insert 1 suppository by RECTAL route every 6 hours As needed; 12 suppository. promethazine 25 mg Oral Tablet - take 1 tablet by ORAL route every 6 hours As needed; 20 tablet. - Medication Reconciliation Form, Thank You Letter, Antibiotic Education, Prescription Opioid Use, School release form form. - Follow up: Jv Cronin MD; When: 1 week; Reason: Recheck today's complaints. - Problem is new. - Symptoms have improved. Addendum: 08/29/2018 16:37 Co-signature as Attending Physician, Ronan Sanchez MD. g s Signatures: Dispatcher [employer] EDMS Huseyin Morales RN RN sg Timoteo Matson PA PA Ronan Gage MD MD gs Pablito Mares RN RN mg2 Corrections: (The following items were deleted from the chart) 08/21 19:18 18:47 08/21/2018 18:47 Discharged to Home. Impression: Nausea and vomiting; mg2 related conditions, unspecified, first trimester. Condition is Stable. Forms are Medication Reconciliation Form, Thank You Letter, Antibiotic Education, Prescription Opioid Use. Follow up: Jv Cronin; When: 1 week; Reason: Recheck today's complaints. Problem is new. Symptoms have improved. cp
[2018-08-21 20:29] LABS: Urine Blood NEGATIVE (NEG); Urine Glucose NEGATIVE (NEG); Urine Protein NEGATIVE (NEG); Urine pH 5.5 (5.0-7.0)
== END 2018-08-21 19:18 | disposition home or self-care (01) ==
LOC: ER 14:52
DX: O21.9 Vomiting of pregnancy, unspecified (principal); Z3A.13 13 weeks gestation of pregnancy; Z91.040 Latex allergy status; Z91.048 Other nonmedicinal substance allergy status
CPT/HCPCS: 36415; 76817; 80048; 80076; 81003; 81025; 83690; 84702; 85025; 86901; 96361; 96374; 96375; 99284; J2405; J7030

== ENCOUNTER 2018-10-03 15:29 | Emergency (ER) | payer OTHER ==
[2018-10-03 16:29] LABS: Urine Blood NEGATIVE (NEG); Urine Glucose NEGATIVE (NEG); Urine Protein NEGATIVE (NEG)
[2018-10-03 16:33] LABS: Urine Bacteria LOADED /HPF (<20); Urine Culture Reflex Order NOT NEEDED; Urine RBC NONE SEEN /HPF (NONE SEEN)
--- NOTE | 2018-10-03 16:46 | EDPHYS ---
Physician Documentation [facility] Name: Blank Armenta Age: 22 yrs Sex: Female : 1995 Arrival Date: 10/03/2018 Time: 15:32 Bed 26 Private MD: None, None ED Physician Timoteo Marin HPI: 10/03 16:19 This 22 yrs old Female presents to ER via Ambulatory with complaints of snw Vaginal Itching, Nausea/Vomiting - 17WK PG. 16:19 The patient presents with vaginal itching and white clumpy discharge. Onset: The snw symptoms/episode began/occurred suddenly, 2 day(s) ago, and became persistent. Modifying factors: The symptoms are alleviated by nothing. Associated signs and symptoms: The patient has no apparent associated signs or symptoms. Severity of symptoms: At their worst the symptoms were severe. The patient is sexually active. The patient has not experienced similar symptoms in the past. It is unknown whether or not the patient has recently seen a physician. 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 - Social history:: Smoking status: Patient/guardian denies using tobacco. - Ebola Screening: : No symptoms or risks identified at this time. ROS: 16:18 Constitutional: Negative for fever, chills, and weight loss, Eyes: Negative for injury, snw pain, redness, and discharge, ENT: Negative for injury, pain, and discharge, Neck: Negative for injury, pain, and swelling, Cardiovascular: Negative for chest pain, palpitations, and edema, Respiratory: Negative for shortness of breath, cough, wheezing, and pleuritic chest pain, Abdomen/GI: Negative for abdominal pain, nausea, vomiting, diarrhea, and constipation, Back: Negative for injury and pain, MS/Extremity: Negative for injury and deformity, Skin: Negative for injury, rash, and discoloration, Neuro: Negative for headache, weakness, numbness, tingling, and seizure, Psych: Negative for depression, anxiety, suicide ideation, homicidal ideation, and hallucinations. 16:18 : Positive for vaginal itching and clumpy white vaginal discharge. Exam: 16:18 Constitutional: This is a well developed, well nourished patient who is awake, alert, snw and in no acute distress. Head/Face: Normocephalic, atraumatic. Eyes: Pupils equal round and reactive to light, extra-ocular motions intact. Lids and lashes normal. Conjunctiva and sclera are non-icteric and not injected. Cornea within normal limits. Periorbital areas with no swelling, redness, or edema. ENT: Nares patent. No nasal discharge, no septal abnormalities noted. Tympanic membranes are normal and external auditory canals are clear. Oropharynx with no redness, swelling, or masses, exudates, or evidence of obstruction, uvula midline. Mucous membranes moist. Neck: Trachea midline, no thyromegaly or masses palpated, and no cervical lymphadenopathy. Supple, full range of motion without nuchal rigidity, or vertebral point tenderness. No Meningismus. Chest/axilla: Normal chest wall appearance and motion. Nontender with no deformity. No lesions are appreciated. Cardiovascular: Regular rate and rhythm with a normal S1 and S2. No gallops, murmurs, or rubs. Normal PMI, no JVD. No pulse deficits. Respiratory: Lungs have equal breath sounds bilaterally, clear to auscultation and percussion. No rales, rhonchi or wheezes noted. No increased work of breathing, no retractions or nasal flaring. Abdomen/GI: Soft, non-tender, with normal bowel sounds. No distension or tympany. No guarding or rebound. No evidence of tenderness throughout. Back: No spinal tenderness. No costovertebral tenderness. Full range of motion. Skin: Warm, dry with normal turgor. Normal color with no rashes, no lesions, and no evidence of cellulitis. MS/ Extremity: Pulses equal, no cyanosis. Neurovascular intact. Full, normal range of motion. Neuro: Awake and alert, GCS 15, oriented to person, place, time, and situation. Cranial nerves II-XII grossly intact. Motor strength 5/5 in all extremities. Sensory grossly intact. Cerebellar exam normal. Normal gait. Psych: Awake, alert, with orientation to person, place and time. Behavior, mood, and affect are within normal limits. Vital Signs: 15:38 BP 96 / 61; Pulse 84; Resp 16; Temp 98.6; Pulse Ox 100% ; Weight 36.29 kg; Height 5 ft. sv 0 in. (152.40 cm); Pain 2/10; 15:38 Body Mass Index 15.62 (36.29 kg, 152.40 cm) sv MDM: 15:46 Patient medically screened. snw 16:13 Data reviewed: vital signs, nurses notes. Data interpreted: Pulse oximetry: on room air snw is 100 %. Counseling: I had a detailed discussion with the patient and/or guardian regarding: the historical points, exam findings, and any diagnostic results supporting the discharge/admit diagnosis. Special discussion: no glucosuria, + appearance of yeast. pt picks at her lips, chapped, hx of anemia. 10/03 15:42 Order name: Urine Culture snw 10/03 15:42 Order name: Urine Microscopic Only; Complete Time: 16:42 snw 10/03 15:42 Order name: FHT's; Complete Time: 16:21 snw 10/03 16:25 Order name: Urine Dipstick--Ancillary (enter results); Complete Time: 16:42 ss 10/03 16:25 Order name: Urine --Ancillary (enter results); Complete Time: 16:42 ss 10/03 15:42 Order name: Urine Dipstick-Ancillary (obtain specimen); Complete Time: 16:15 snw Administered Medications: 17:18 Drug: Rocephin (cefTRIAXone) 1 grams Route: IM; Site: right gluteus; iw Disposition: 10/04 07:08 Co-signature as Attending Physician, Timoteo Marin MD I agree with the assessment and kira plan of care. Disposition: 10/03/18 16:45 Discharged to Home. Impression: Candidiasis, unspecified, Urinary tract infection, site not specified. - Condition is Stable. - Discharge Instructions: Vaginal Yeast Infection, Adult, and Urinary Tract Infection, Second Trimester of , [id number], Skin Yeast Infection. - Prescriptions for Clotrimazole 1 % Vaginal Cream - insert 1 applicatorful by VAGINAL route At bedtime for 7 days; 7 Syringe. Vitamin 27- 0.8 mg Oral Tablet - take 1 tablet by ORAL route once daily; 30 tablet. cefpodoxime 100 mg Oral Tablet - take 1 tablet by ORAL route every 12 hours for 10 days take with food; 20 tablet. - Medication Reconciliation Form, Thank You Letter, Antibiotic Education, Prescription Opioid Use, School release form, Work release form form. - Follow up: Private Physician; When: 1 - 2 days; Reason: Recheck today's complaints, Continuance of care, Re-evaluation by your physician. Follow up: Emergency Department; When: As needed; Reason: Worsening of condition. Signatures: Dispatcher [employer] Sandy Stone, Timoteo Johnson RN, MD MD cha Therrien, Shelly, CUTTER HEAD SHARPENER-C CUTTER HEAD SHARPENER-Csnw Goldie García RN RN iw Corrections: (The following items were deleted from the chart) 10/03 17:26 16:45 10/03/2018 16:45 Discharged to Home. Impression: Candidiasis, unspecified; iw Urinary tract infection, site not specified. Condition is Stable. Discharge Instructions: Vaginal Yeast Infection, Adult, Second Trimester of , [id number], Skin Yeast Infection, and Urinary Tract Infection. Prescriptions for Clotrimazole 1 % Vaginal Cream - insert 1 applicatorful by VAGINAL route At bedtime for 7 days; 7 Syringe, Vitamin 27-0.8 mg Oral Tablet - take 1 tablet by ORAL route once daily; 30 tablet, cefpodoxime 100 mg Oral Tablet - take 1 tablet by ORAL route every 12 hours for 10 days take with food; 20 tablet. and Forms are Medication Reconciliation Form, Thank You Letter, Antibiotic Education, Prescription Opioid Use. Follow up: Private Physician; When: 1 - 2 days; Reason: Recheck today's complaints, Continuance of care, Re-evaluation by your physician. Follow up: Emergency Department; When: As needed; Reason: Worsening of condition. snw
--- NOTE | 2018-10-03 16:46 | ER ---
Nurse's Notes [facility] Name: Blank Armenta Age: 22 yrs Sex: Female : 1995 Arrival Date: 10/03/2018 Time: 15:32 Bed 26 Private MD: None, None Diagnosis: Candidiasis, unspecified;Urinary tract infection, site not specified Presentation: 10/03 15:36 Presenting complaint: Patient states: vomiting, left side pain, and vaginal burning and sv itching. Transition of care: patient was not received from another setting of care. Onset of symptoms was September 26, 2018. Care prior to arrival: None. 15:36 Method Of Arrival: Ambulatory sv 15:36 Acuity: TEREZA 4 sv 15:45 Risk Assessment: Do you want to hurt yourself or someone else? Patient reports no iw desire to harm self or others. Initial Sepsis Screen: Does the patient meet any 2 criteria? No. Patient's initial sepsis screen is negative. Does the patient have a suspected source of infection? No. Patient's initial sepsis screen is negative. Triage Assessment: 15:36 General: Appears in no apparent distress. comfortable, Behavior is calm, cooperative. sv Neuro: Level of Consciousness is awake, alert, obeys commands, Oriented to person, place, time, situation, Moves all extremities. Full function Gait is steady. Respiratory: Respiratory effort is even, unlabored, Respiratory pattern is regular, symmetrical. GI: Reports vomiting. 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 - Social history:: Smoking status: Patient/guardian denies using tobacco. - Ebola Screening: : No symptoms or risks identified at this time. Screenin:32 Abuse screen: Denies threats or abuse. Denies injuries from another. Nutritional iw screening: No deficits noted. Tuberculosis screening: No symptoms or risk factors identified. Fall Risk None identified. Assessment: 16:31 General: Appears in no apparent distress. Behavior is calm, cooperative. Pain: Denies iw pain. Neuro: Level of Consciousness is awake, alert, obeys commands, Oriented to person, place, time, situation, Moves all extremities. Full function. Cardiovascular: Patient's skin is warm and dry. Respiratory: Respiratory effort is even, unlabored, Respiratory pattern is regular, symmetrical. GI: Reports vomiting. Derm: Skin is intact, is healthy with good turgor. Musculoskeletal: Range of motion: intact in all extremities. Vital Signs: 15:38 BP 96 / 61; Pulse 84; Resp 16; Temp 98.6; Pulse Ox 100% ; Weight 36.29 kg; Height 5 ft. sv 0 in. (152.40 cm); Pain 2/10; 15:38 Body Mass Index 15.62 (36.29 kg, 152.40 cm) sv Vitals: 16:21 Heart Tones 138 bpm. iw ED Course: 15:32 Patient arrived in ED. sb2 15:33 None, None is Private Physician. sb2 15:37 Triage completed. sv 15:39 Arm band placed on. sv 15:40 Goldie García RN is Primary Nurse. iw 15:42 [facility] snw 15:42 Timoteo Marin MD is Attending Physician. snw 16:00 Urine collected: clean catch specimen, clear, fortunato colored, Amount Voided: 80mL. jp3 16:29 Bed in low position. Call light in reach. Side rails up X 1. Pulse ox on. NIBP on. jp3 16:29 Urine --Ancillary (enter results) Sent. jp3 16:29 Urine Dipstick--Ancillary (enter results) Sent. jp3 16:29 Urine Culture Sent. jp3 16:29 Urine Microscopic Only Sent. jp3 17:25 No provider procedures requiring assistance completed. Patient did not have IV access iw during this emergency room visit. Administered Medications: 17:18 Drug: Rocephin (cefTRIAXone) 1 grams Route: IM; Site: right gluteus; iw Outcome: 16:45 Discharge ordered by . snw 17:25 Discharged to home ambulatory. iw 17:25 Condition: good 17:25 Discharge instructions given to patient, Instructed on discharge instructions, follow up and referral plans. medication usage, Demonstrated understanding of instructions, follow-up care, medications, Prescriptions given X 3. 17:26 Patient left the ED. iw Signatures: Sandy Murry RN RN sv Abi Dickerson FNP-C COAL CUTTER-Csnw Goldie García, RN RN iw Gabriela Navarro sb2 Alfredo Myles jp3
[2018-10-03] MEDS ORDERED: CEFTRIAXONE 1000 MG/VIAL ONE (17:17)
[2018-10-03] MEDS ORDERED: WATER FOR INJ,STERILE 10 ML ONE (17:17)
== END 2018-10-03 17:26 | disposition home or self-care (01) ==
LOC: ER 15:29
DX: B37.9 Candidiasis, unspecified (principal); N39.0 Urinary tract infection, site not specified
CPT/HCPCS: 81003; 81015; 81025; 87086; 87088; 96372; 99284

== ENCOUNTER 2018-12-30 21:15 | Emergency (ER) | payer OTHER ==
--- OUTSIDE RECORDS SUMMARY | 2018-12-30 21:17 | XMS REPORT ---
:1995 [facility] [address] [place] [address] Dr. Pace [address] [place] [id number] Care Team Providers Name Role Phone Unavailable Unavailable Unavailable Problems This patient has no known problems. Allergies, Adverse Reactions, Alerts This patient has no known allergies or adverse reactions. Medications This patient has no known medications.
[2018-12-30] MEDS ORDERED: PROMETHAZINE 25 MG/ML VIAL ONE (22:15)
[2018-12-30] MEDS ORDERED: NA CHLORIDE 0.9% 1,000 ML ONE (22:16)
[2018-12-30 22:22] LABS: Absolute Lymphocytes (CBC) 0.6 K/uL (0.7-4.9); Absolute Monocytes 0.4 K/uL (0.1-1.3); Absolute Neutrophil 7.8 K/uL (1.8-8.0); Basophils % 0.2 % (0-1.3); Eosinophils % 0.1 % (0-4.4); Lymphocytes % 6.4 % (15.3-44.8); Monocytes % 4.4 % (3.3-12.3); RBC Red Blood Cell Count 3.39 M/uL (3.86-4.86)
[2018-12-30 22:52] LABS: ALT/SGPT 12 U/L (12-78); AST/SGOT 17 U/L (15-37); Albumin 2.7 g/dL (3.4-5.0); Alkaline Phosphatase 93 U/L (45-117); BUN Blood Urea Nitrogen 8 mg/dL (7-18); Bicarbonate 24 mmol/L (21-32); Bilirubin Direct 0.1 mg/dL (0-0.2); Bilirubin Total 0.5 mg/dL (0.2-1.0); Glucose Level 84 mg/dL (74-106); Lipase 130 U/L (73-393); Potassium 3.1 mmol/L (3.5-5.1); Protein, Total 7.3 g/dL (6.4-8.2); Sodium Level 138 mmol/L (136-145)
[2018-12-30] MEDS ORDERED: ACETAMINOPHEN 500 MG TAB ONE (23:03)
[2018-12-30 23:26] LABS: Blood Morphology Comment NOT SEEN (NOT SEEN); Platelet Estimate ADEQ; Urine White Blood Cell Casts OK
[2018-12-31] LABS: Urine Blood NEGATIVE (NEG); Urine Glucose NEGATIVE (NEG); Urine Protein NEGATIVE (NEG)
[2018-12-31] MEDS ORDERED: POTASSIUM 25 MEQ EFFERV TAB ONE (00:08)
[2018-12-31 00:19] LABS: Urine Bacteria >50 /HPF (<20); Urine Culture Reflex Order REFLEXED; Urine Mucus HEAVY /HPF (NONE SEEN); Urine RBC NONE SEEN /HPF (NONE SEEN)
[2018-12-31] MEDS ORDERED: CEFTRIAXONE/SWI 1gm 1 GM/10 ML SYR ONE (00:39)
--- NOTE | 2018-12-31 01:08 | ER ---
Nurse's Notes [facility] Name: Blank Armenta Age: 23 yrs Sex: Female : 1995 Arrival Date: 12/30/2018 Time: 21:19 Bed 19 Private MD: Diagnosis: Acute abdominal pain;acute vomiting;bacteriuria in Presentation: 12/30 21:26 Presenting complaint: Patient states: Dizziness, N/V, fever since yesterday; States lp1 feeling worse today; Patient is currently . Transition of care: patient was not received from another setting of care. Onset of symptoms was December 29, 2018. Risk Assessment: Do you want to hurt yourself or someone else? Patient reports no desire to harm self or others. Initial Sepsis Screen: Does the patient meet any 2 criteria? No. Patient's initial sepsis screen is negative. Does the patient have a suspected source of infection? No. Patient's initial sepsis screen is negative. Care prior to arrival: None. 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 - Social history:: Smoking status: Patient/guardian denies using tobacco. - Ebola Screening: : No symptoms or risks identified at this time. - Family history:: not pertinent. - Hospitalizations: : No recent hospitalization is reported. Screenin:28 Abuse screen: Denies threats or abuse. Denies injuries from another. Nutritional lp1 screening: No deficits noted. Tuberculosis screening: No symptoms or risk factors identified. 23:00 Fall Risk None identified. ea Assessment: 22:38 General: Appears uncomfortable, Behavior is calm, cooperative, appropriate for age. ea Pain: Denies pain. Neuro: Level of Consciousness is awake, alert, obeys commands, Oriented to person, place, time, situation. Cardiovascular: Patient's skin is warm and dry. Respiratory: Airway is patent Respiratory effort is even, unlabored, Respiratory pattern is regular, symmetrical. GI: Abdomen is round Parent/caregiver reports the patient having nausea, vomiting. Derm: Skin is pink, warm \T\ dry. Musculoskeletal: Circulation, motion, and sensation intact. 23:50 Reassessment: Patient and/or family updated on plan of care and expected duration. Pain ea level reassessed. Patient is alert, oriented x 3, equal unlabored respirations, skin warm/dry/pink. Patient states symptoms have improved. 12/31 00:00 Reassessment: Patient and/or family updated on plan of care and expected duration. Pain ea level reassessed. Patient is alert, oriented x 3, equal unlabored respirations, skin warm/dry/pink. 01:46 Reassessment: Patient and/or family updated on plan of care and expected duration. Pain ea level reassessed. Patient is alert, oriented x 3, equal unlabored respirations, skin warm/dry/pink. Discharge instruction given to patient, verbalized the understanding of instructions Patient states feeling better. Patient states symptoms have improved. Vital Signs: 12/30 21:27 BP 118 / 67; Pulse 108; Resp 16; Temp 100.6(O); Pulse Ox 97% on R/A; Weight 44.91 kg; lp1 Height 5 ft. 0 in. (152.40 cm); Pain 5/10; 22:39 BP 111 / 72; Pulse 109; Resp 18; Pulse Ox 98% on R/A; ea 23:00 BP 115 / 68; Pulse 107; Resp 18; Pulse Ox 99% ; ea 23:15 Temp 99.4; ea 12/31 00:50 BP 100 / 50; Pulse 106; Resp 18; Pulse Ox 97% on R/A; ea 01:30 BP 110 / 60; Pulse 100; Resp 18 S; Temp 98.8; Pulse Ox 100% ; ea 12/30 21:27 Body Mass Index 19.33 (44.91 kg, 152.40 cm) lp1 Vitals: 12/30 22:37 Heart Tones 172. ea ED Course: 21:19 Patient arrived in ED. es 21:27 Triage completed. lp1 21:28 Arm band placed on. lp1 21:44 Manuelito Alvarez MD is Attending Physician. wa 22:00 Inserted saline lock: 20 gauge in right antecubital area, using aseptic technique. tl2 Blood collected. 22:25 Vaishali Grewal, RN is Primary Nurse. ea 22:26 Patient has correct armband on for positive identification. Bed in low position. Call ea light in reach. Side rails up X 1. 12/31 01:44 IV discontinued, intact, bleeding controlled, No redness/swelling at site. Pressure ea dressing applied. 01:48 No provider procedures requiring assistance completed. ea Administered Medications: 12/30 22:11 Drug: NS 0.9% 1000 ml Route: IV; Rate: 1 bolus; Site: right antecubital; tl2 12/31 00:00 Follow up: Response: No adverse reaction; IV Status: Completed infusion; IV Intake: ea 1000ml 12/30 22:11 Drug: Promethazine 12.5 mg Route: IVP; Site: right antecubital; tl2 23:00 Follow up: Response: No adverse reaction; Nausea is decreased ea 22:54 Drug: Tylenol 1000 mg Route: PO; ea 23:30 Follow up: Response: No adverse reaction; Temperature is decreased ea 12/31 00:04 Drug: Potassium Effervescent Tablet 50 mEq Route: PO; ea 01:51 Follow up: Response: No adverse reaction ea 00:49 Drug: Rocephin - (cefTRIAXone) 1 grams Route: IVPB; Infused Over: 30 mins; Site: right ea antecubital; 01:51 Follow up: Response: No adverse reaction; IV Status: Completed infusion ea Intake: 00:00 IV: 1000ml; Total: 1000ml. ea Outcome: 01:08 Discharge ordered by . wa 01:47 Discharged to home ambulatory, with significant other. ea 01:47 Condition: improved 01:47 Discharge instructions given to patient, Instructed on discharge instructions, follow up and referral plans. medication usage, Demonstrated understanding of instructions, follow-up care, medications, Prescriptions given X 2. 01:52 Patient left the ED. ea Signatures: Rose Vazquez Laura RN RN lp1 Katy Gaines RN RN tl2 Vaishali Grewal RN RN Manuelito Alvarez MD MD wa Corrections: (The following items were deleted from the chart) 01:47 01:46 Reassessment: Patient and/or family updated on plan of care and expected ea duration. Pain level reassessed. Patient is alert, oriented x 3, equal unlabored respirations, skin warm/dry/pink. Patient states feeling better. Patient states symptoms have improved. ea
--- NOTE | 2018-12-31 01:09 | EDPHYS ---
Physician Documentation [facility] Name: Blank Armenta Age: 23 yrs Sex: Female : 1995 Arrival Date: 12/30/2018 Time: 21:19 Bed 19 Private MD: ED Physician Manuelito Alvarez HPI: 12/30 22:41 This 23 yrs old Female presents to ER via Ambulatory with complaints of wa Dizziness, Nausea/Vomiting, Fever. 22:41 The patient presents with generalized weakness, lightheadedness. Onset: The wa symptoms/episode began/occurred 2 day(s) ago. Context: occurred at home, occurred while the patient was at rest, just prior to the episode the patient experienced no apparent symptoms, 30 weeks preg. v/o vomiting and not able to hold anything down. admits to low back pain and pelvic pain. denies vag bleed and cramps. admits to chills and fever. Modifying factors: The symptoms are alleviated by nothing, the symptoms are aggravated by nothing. Associated signs and symptoms: Pertinent positives: abdominal pain, nausea, , vomiting, Pertinent negatives: headache. Severity of symptoms: At their worst the symptoms were moderate in the emergency department the symptoms are unchanged. Patient's baseline: Neuro: alert and fully oriented, Motor: no deficits, Ambulation: walks without assistance, Speech: normal. The patient has not experienced similar symptoms in the past. The patient has not recently seen a physician. denies vag bleed or dysuria. 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 - Social history:: Smoking status: Patient/guardian denies using tobacco. - Ebola Screening: : No symptoms or risks identified at this time. - Family history:: not pertinent. - Hospitalizations: : No recent hospitalization is reported. ROS: 22:44 Eyes: Negative for injury, pain, redness, and discharge, ENT: Negative for injury, wa pain, and discharge, Neck: Negative for injury, pain, and swelling, Cardiovascular: Negative for chest pain, palpitations, and edema, Respiratory: Negative for shortness of breath, cough, wheezing, and pleuritic chest pain, MS/Extremity: Negative for injury and deformity, Skin: Negative for injury, rash, and discoloration, Neuro: Negative for headache, weakness, numbness, tingling, and seizure, Psych: Negative for depression, anxiety, suicide ideation, homicidal ideation, and hallucinations. 22:44 Constitutional: Positive for chills, fever, malaise. 22:44 Abdomen/GI: Positive for abdominal pain, nausea and vomiting, Negative for diarrhea. 22:44 Back: Positive for low back pain. 22:44 : Positive for pelvic pain, Negative for urinary symptoms, hematuria, vaginal bleeding, vaginal discharge. 22:44 All other systems are negative. Exam: 22:47 Head/Face: Normocephalic, atraumatic. Eyes: Pupils equal round and reactive to light, wa extra-ocular motions intact. Lids and lashes normal. Conjunctiva and sclera are non-icteric and not injected. Cornea within normal limits. Periorbital areas with no swelling, redness, or edema. ENT: Nares patent. No nasal discharge, no septal abnormalities noted. Tympanic membranes are normal and external auditory canals are clear. Oropharynx with no redness, swelling, or masses, exudates, or evidence of obstruction, uvula midline. Mucous membranes moist. Neck: Trachea midline, no thyromegaly or masses palpated, and no cervical lymphadenopathy. Supple, full range of motion without nuchal rigidity, or vertebral point tenderness. No Meningismus. Chest/axilla: Normal chest wall appearance and motion. Nontender with no deformity. No lesions are appreciated. Cardiovascular: Regular rate and rhythm with a normal S1 and S2. No gallops, murmurs, or rubs. Normal PMI, no JVD. No pulse deficits. Respiratory: Lungs have equal breath sounds bilaterally, clear to auscultation and percussion. No rales, rhonchi or wheezes noted. No increased work of breathing, no retractions or nasal flaring. Skin: Warm, dry with normal turgor. Normal color with no rashes, no lesions, and no evidence of cellulitis. MS/ Extremity: Pulses equal, no cyanosis. Neurovascular intact. Full, normal range of motion. Neuro: Awake and alert, GCS 15, oriented to person, place, time, and situation. Cranial nerves II-XII grossly intact. Motor strength 5/5 in all extremities. Sensory grossly intact. Cerebellar exam normal. Normal gait. 22:47 Constitutional: The patient appears in no acute distress, alert, febrile. 22:47 Abdomen/GI: Inspection: gravid appearance, is noted, Bowel sounds: normal, in all quadrants, Palpation: soft, in all quadrants, mild abdominal tenderness, in the suprapubic. low pelvis. 22:47 Back: pain, that is mild, of the lumbar area, left low back and right low back, CVA tenderness, is absent. Vital Signs: 21:27 BP 118 / 67; Pulse 108; Resp 16; Temp 100.6(O); Pulse Ox 97% on R/A; Weight 44.91 kg; lp1 Height 5 ft. 0 in. (152.40 cm); Pain 5/10; 22:39 BP 111 / 72; Pulse 109; Resp 18; Pulse Ox 98% on R/A; ea 23:00 BP 115 / 68; Pulse 107; Resp 18; Pulse Ox 99% ; ea 23:15 Temp 99.4; ea 12/31 00:50 BP 100 / 50; Pulse 106; Resp 18; Pulse Ox 97% on R/A; ea 01:30 BP 110 / 60; Pulse 100; Resp 18 S; Temp 98.8; Pulse Ox 100% ; ea 12/30 21:27 Body Mass Index 19.33 (44.91 kg, 152.40 cm) lp1 MDM: 12/30 21:45 Patient medically screened. wa 22:49 Differential diagnosis: acute viral illness? r/o UTI. . wa 12/31 01:05 Data reviewed: vital signs, nurses notes, lab test result(s), radiologic studies. Test wa interpretation: by ED physician or midlevel provider: UA noted for bacteriuria. hypokalemia. anemia. Response to treatment: the patient's symptoms have markedly improved after treatment, tolerated po prior to d/c. FHT 172. replaced K po. abx given. 12/30 21:51 Order name: Flu; Complete Time: 22:50 wa 12/30 21:51 Order name: Basic Metabolic Panel; Complete Time: 23:40 nm 12/30 21:51 Order name: CBC with Diff; Complete Time: 23:41 nm 12/30 21:51 Order name: Hepatic Function; Complete Time: 23:41 nm 12/30 21:51 Order name: Lipase; Complete Time: 23:41 nm 12/30 21:51 Order name: Urine Microscopic Only; Complete Time: 00:24 nm 12/30 23:27 Order name: CBC Smear Scan; Complete Time: 23:40 [facility] 12/30 23:58 Order name: Urine Dipstick--Ancillary (enter results); Complete Time: 00:24 [facility] 12/30 23:58 Order name: Urine --Ancillary (enter results); Complete Time: 00:24 [facility] 12/31 00:31 Order name: Urine Culture [facility] 12/30 21:51 Order name: Heart Tones; Complete Time: 22:40 nm 12/30 21:51 Order name: IV Saline Lock; Complete Time: 22:00 nm 12/30 21:51 Order name: Labs collected and sent; Complete Time: 22:00 nm 12/30 21:51 Order name: Urine Dipstick-Ancillary (obtain specimen); Complete Time: 23:47 nm Administered Medications: 12/30 22:11 Drug: NS 0.9% 1000 ml Route: IV; Rate: 1 bolus; Site: right antecubital; tl2 02 00:00 Follow up: Response: No adverse reaction; IV Status: Completed infusion; IV Intake: ea 1000ml 12/30 22:11 Drug: Promethazine 12.5 mg Route: IVP; Site: right antecubital; tl2 23:00 Follow up: Response: No adverse reaction; Nausea is decreased ea 22:54 Drug: Tylenol 1000 mg Route: PO; ea 23:30 Follow up: Response: No adverse reaction; Temperature is decreased ea 12/31 00:04 Drug: Potassium Effervescent Tablet 50 mEq Route: PO; ea 01:51 Follow up: Response: No adverse reaction ea 00:49 Drug: Rocephin - (cefTRIAXone) 1 grams Route: IVPB; Infused Over: 30 mins; Site: right ea antecubital; 01:51 Follow up: Response: No adverse reaction; IV Status: Completed infusion ea Disposition: 12/31/18 01:08 Discharged to Home. Impression: Acute abdominal pain, acute vomiting, bacteriuria in . - Condition is Stable. - Prescriptions for Keflex 500 mg Oral Capsule - take 1 capsule by ORAL route every 8 hours for 5 days; 15 capsule. promethazine 12.5 mg Oral tablet - take 1 tablet by ORAL route every 8 hours As needed; 12 tablet. - Work release form, Medication Reconciliation Form, Thank You Letter, Antibiotic Education, Prescription Opioid Use form. - Follow up: Private Physician; When: 1 - 2 days; Reason: Recheck today's complaints. - Problem is new. - Symptoms have improved. - Notes: take medication as needed as prescribed. follow up with your doctor within 2 days. return to ER immediately for rapidly worsening of your illness Signatures: Dispatcher [employer] EDMS Roya Sifuentes RN RN lp1 Katy Gaines RN RN tl2 Vaishali Grewal RN RN taina SpencerhManuelito MD MD wa Corrections: (The following items were deleted from the chart) 01:52 01:08 12/31/2018 01:08 Discharged to Home. Impression: Acute abdominal pain; acute ea vomiting; bacteriuria in . Condition is Stable. Forms are Medication Reconciliation Form, Thank You Letter, Antibiotic Education, Prescription Opioid Use. Follow up: Private Physician; When: 1 - 2 days; Reason: Recheck today's complaints. Problem is new. Symptoms have improved. wa
== END 2018-12-31 01:52 | disposition home or self-care (01) ==
LOC: ER 21:15
DX: O26.893 Other specified pregnancy related conditions, third trimester (principal); Z3A.30 30 weeks gestation of pregnancy; R82.71 Bacteriuria; R42 Dizziness and giddiness; R11.2 Nausea with vomiting, unspecified; O99.013 Anemia complicating pregnancy, third trimester; O99.343 Other mental disorders complicating pregnancy, third trimester; F32.9 Major depressive disorder, single episode, unspecified
CPT/HCPCS: 36415; 80048; 80076; 81003; 81015; 81025; 83690; 85025; 87086; 87088; 87804; 96361; 96365; 96375; 99284; J0696; J2550; J7030

== ENCOUNTER 2019-03-07 18:58 | Emergency (ER) | payer OTHER ==
--- OUTSIDE RECORDS SUMMARY | 2019-03-07 19:01 | XMS REPORT ---
:1995 [facility] Address [address] [place] [address] Dr. Pace [address] [place] [id number] Care Team Providers Name Role Phone Unavailable Unavailable Unavailable Problems This patient has no known problems. Allergies, Adverse Reactions, Alerts This patient has no known allergies or adverse reactions. Medications This patient has no known medications.
[2019-03-07] MEDS ORDERED: NA CHLORIDE 0.9% 0 ML ONE (19:45)
[2019-03-07] MEDS ORDERED: IBUPROFEN 400 MG TAB ONE (19:45)
[2019-03-07] MEDS ORDERED: ACETAMINOPHEN 500 MG TAB ONE (19:45)
[2019-03-07 19:52] LABS: Absolute Lymphocytes (CBC) 1.4 K/uL (0.7-4.9); Absolute Monocytes 0.7 K/uL (0.1-1.3); Absolute Neutrophil 6.2 K/uL (1.8-8.0); Basophils % 0.3 % (0-1.3); Eosinophils % 1.4 % (0-4.4); Hematocrit 29.3 % (36.0-45.0); Lymphocytes % 16.4 % (15.3-44.8); MPV 6.6 fL (7.6-11.3); Monocytes % 8.3 % (3.3-12.3); RBC Red Blood Cell Count 4.22 M/uL (3.86-4.86)
[2019-03-07 20:02] LABS: Urine Bacteria 20-50 /HPF (<20); Urine Culture Reflex Order NOT NEEDED; Urine Mucus 1+ /HPF (NONE SEEN); Urine RBC <5 /HPF (NONE SEEN)
[2019-03-07 20:03] LABS: BUN Blood Urea Nitrogen 10 mg/dL (7-18); Bicarbonate 26 mmol/L (21-32); Glucose Level 90 mg/dL (74-106); Potassium 3.4 mmol/L (3.5-5.1); Sodium Level 139 mmol/L (136-145)
[2019-03-07] MEDS ORDERED: NA CHLORIDE 0.9% 1,000 ML ONE (20:10)
[2019-03-07 20:19] LABS: Urine Blood 1+ (NEG); Urine Glucose NEGATIVE (NEG); Urine Protein NEGATIVE (NEG); Urine Specific Gravity 1.025 (1.005-1.030)
[2019-03-07 20:34] LABS: Anisocytosis 2+; Blood Morphology Comment NOTED (NOT SEEN); Platelet Estimate ADEQ; Urine White Blood Cell Casts OK
--- NOTE | 2019-03-07 21:28 | EDPHYS ---
Physician Documentation [facility] Name: Blank Armenta Age: 23 yrs Sex: Female : 1995 Arrival Date: 03/07/2019 Time: 19:01 Bed 26 Private MD: None, None ED Physician Mic Jimenez HPI: 03/07 19:29 This 23 yrs old Female presents to ER via Ambulatory with complaints of pkl Headache, Abdominal Pain. 19:29 The patient presents with abdominal pain in the lower abdomen. Onset: The pkl symptoms/episode began/occurred 3 day(s) ago. The symptoms do not radiate. Associated signs and symptoms: Pertinent positives: fever, headache. S/P vag. delivery 03/02/19. 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 - Social history:: Smoking status: Patient/guardian denies using tobacco. - Ebola Screening: : No symptoms or risks identified at this time. ROS: 19:29 Eyes: Negative for injury, pain, redness, and discharge, ENT: Negative for injury, pkl pain, and discharge, Neck: Negative for injury, pain, and swelling, Cardiovascular: Negative for chest pain, palpitations, and edema, Respiratory: Negative for shortness of breath, cough, wheezing, and pleuritic chest pain. 19:29 Abdomen/GI: Positive for abdominal pain, of the right lower quadrant and left lower quadrant. 19:29 Back: Negative for acute changes. 19:29 : Negative for urinary symptoms. 19:29 MS/extremity: Negative for acute changes. 19:29 Skin: Negative for rash. 19:29 Neuro: Positive for headache. Exam: 19:29 Head/Face: Normocephalic, atraumatic. Eyes: Pupils equal round and reactive to light, pkl extra-ocular motions intact. Lids and lashes normal. Conjunctiva and sclera are non-icteric and not injected. Cornea within normal limits. Periorbital areas with no swelling, redness, or edema. ENT: Nares patent. No nasal discharge, no septal abnormalities noted. Tympanic membranes are normal and external auditory canals are clear. Oropharynx with no redness, swelling, or masses, exudates, or evidence of obstruction, uvula midline. Mucous membranes moist. Neck: Trachea midline, no thyromegaly or masses palpated, and no cervical lymphadenopathy. Supple, full range of motion without nuchal rigidity, or vertebral point tenderness. No Meningismus. Chest/axilla: Normal chest wall appearance and motion. Nontender with no deformity. No lesions are appreciated. Cardiovascular: Regular rate and rhythm with a normal S1 and S2. No gallops, murmurs, or rubs. Normal PMI, no JVD. No pulse deficits. Respiratory: Lungs have equal breath sounds bilaterally, clear to auscultation and percussion. No rales, rhonchi or wheezes noted. No increased work of breathing, no retractions or nasal flaring. 19:29 Abdomen/GI: Bowel sounds: normal, Palpation: soft, mild abdominal tenderness, in the right lower quadrant and left lower quadrant, rebound tenderness, is not appreciated, voluntary guarding, is not appreciated. 19:29 Back: Exam negative for acute changes. 19:29 : Exam negative for acute changes. 19:29 Musculoskeletal/extremity: Exam is negative for acute changes. 19:29 Skin: Exam negative for rash. 19:29 Neuro: Orientation: is normal, Mentation: is normal, Cranial nerves: grossly normal, Motor: is normal. Vital Signs: 19:07 BP 117 / 83; Pulse 117; Resp 16; Temp 100.9(O); Pulse Ox 97% on R/A; Weight 45.36 kg ak1 (R); Height 5 ft. 0 in. (152.40 cm) (R); Pain 10/10; 20:00 BP 104 / 82; Pulse 98; Resp 16; Pulse Ox 96% on R/A; lp1 21:00 BP 111 / 78; Pulse 90; Resp 16; Pulse Ox 97% on R/A; lp1 21:42 BP 114 / 76; Pulse 92; Resp 16; Temp 98.4(O); Pulse Ox 97% on R/A; lp1 19:07 Body Mass Index 19.53 (45.36 kg, 152.40 cm) ak1 MDM: 19:10 Patient medically screened. pkl 21:25 Data reviewed: vital signs, nurses notes, lab test result(s). pk 03/07 19:24 Order name: Urine Microscopic Only; Complete Time: 21:23 lp1 03/07 19:24 Order name: Urine Culture lp1 03/07 19:25 Order name: Urine Dipstick--Ancillary (enter results); Complete Time: 21:23 mw2 03/07 19:27 Order name: CBC with Diff pkl 03/07 19:27 Order name: Strep pkl 03/07 19:27 Order name: Chem 7 pkl 03/07 19:28 Order name: Flu; Complete Time: 21:23 pkl 03/07 19:28 Order name: CBC with Automated Diff; Complete Time: 21:23 EDMS 03/07 19:28 Order name: Group A Streptococcus Rapid Sc; Complete Time: 20:02 EDMS 03/07 19:28 Order name: Basic Metabolic Panel; Complete Time: 21:23 EDMS 03/07 20:01 Order name: Throat Culture [facility] 03/07 20:05 Order name: CBC Smear Scan; Complete Time: 21:23 EDMS 03/07 19:24 Order name: Urine Dipstick-Ancillary (obtain specimen); Complete Time: 19:24 lp1 Administered Medications: 19:36 Drug: Tylenol 500 mg Route: PO; mg2 21:30 Follow up: Response: Temperature is decreased lp1 19:36 Drug: Motrin 400 mg Route: PO; mg2 21:30 Follow up: Response: Temperature is decreased lp1 19:45 Drug: NS 0.9% 1000 ml Route: IV; Rate: 1000 ml; Site: right antecubital; lp1 21:00 Follow up: IV Status: Completed infusion; IV Intake: 1000ml lp1 Disposition: 03/07/19 21:28 Discharged to Home. Impression: Viral infection. Pelvic pain. S/P Vaginal delivery. - Condition is Stable. - Medication Reconciliation Form, Thank You Letter, Antibiotic Education, Prescription Opioid Use form. - Follow up: Private Physician; When: 1 - 2 days; Reason: Re-evaluation by your physician. - Problem is new. - Symptoms have improved. Signatures: Dispatcher [employer] Mic Matt MD MD pkl Roya Sifuentes, RN RN lp1 Carolyn Augustin RN RN ak1 Pablito Mares RN RN mg2 Corrections: (The following items were deleted from the chart) 21:44 21:28 03/07/2019 21:28 Discharged to Home. Impression: Viral infection. Pelvic pain. lp1 S/P Vaginal delivery. Condition is Stable. Forms are Medication Reconciliation Form, Thank You Letter, Antibiotic Education, Prescription Opioid Use. Follow up: Private Physician; When: 1 - 2 days; Reason: Re-evaluation by your physician. Problem is new. Symptoms have improved. pkl
--- NOTE | 2019-03-07 21:28 | ER ---
Nurse's Notes [facility] Name: Blank Armenta Age: 23 yrs Sex: Female : 1995 Arrival Date: 03/07/2019 Time: 19:01 Bed 26 Private MD: None, None Diagnosis: Viral infection. Pelvic pain. S/P Vaginal delivery Presentation: 03/07 19:07 Presenting complaint: Patient states: headache since 03/04 s/p vaginal delivery on ak1 03/02/19. pt c/o lower pain since 03/04/19. pt denies N/V/D. Transition of care: patient was not received from another setting of care. Onset of symptoms was March 04, 2019. Risk Assessment: Do you want to hurt yourself or someone else? Patient reports no desire to harm self or others. Care prior to arrival: None. 19:07 Method Of Arrival: Ambulatory ak1 19:07 Acuity: TEREZA 3 ak1 19:28 Initial Sepsis Screen: Does the patient meet any 2 criteria? No. Patient's initial mg2 sepsis screen is negative. Does the patient have a suspected source of infection? No. Patient's initial sepsis screen is negative. Triage Assessment: 19:09 General: Appears in no apparent distress. Behavior is calm, cooperative, appropriate ak1 for age. 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 Gait is steady, Speech is normal, Facial symmetry appears normal. 19:28 Headache History: The patient has had previous headaches and this one is similar to mg2 previous episodes. Pain: Complains of pain in head Also complains of no other associated symptoms. 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 - Social history:: Smoking status: Patient/guardian denies using tobacco. - Ebola Screening: : No symptoms or risks identified at this time. Screenin:27 Abuse screen: Denies threats or abuse. Denies injuries from another. Nutritional mg2 screening: No deficits noted. Tuberculosis screening: No symptoms or risk factors identified. Fall Risk None identified. Assessment: 19:26 General: Appears in no apparent distress. comfortable, Behavior is calm, cooperative. mg2 Pain: Complains of pain in head, abdomen Pain does not radiate. Pain currently is 5 out of 10 on a pain scale. Quality of pain is described as aching, Pain began gradually, Is intermittent. Neuro: Level of Consciousness is awake, alert, obeys commands, Oriented to person, place, time, situation, Reports headache. Cardiovascular: Capillary refill < 3 seconds Patient's skin is warm and dry. Respiratory: Airway is patent Respiratory effort is even, unlabored, Respiratory pattern is regular, symmetrical. GI: Reports lower abdominal pain. :. EENT: No signs and/or symptoms were reported regarding the EENT system. Derm: Skin is intact, is healthy with good turgor, Skin is pink, warm \T\ dry. normal. Musculoskeletal: Circulation, motion, and sensation intact. Capillary refill < 3 seconds. 20:30 Reassessment: Patient appears in no apparent distress at this time. No changes from lp1 previously documented assessment. Patient and/or family updated on plan of care and expected duration. Pain level reassessed. Vital Signs: 19:07 BP 117 / 83; Pulse 117; Resp 16; Temp 100.9(O); Pulse Ox 97% on R/A; Weight 45.36 kg ak1 (R); Height 5 ft. 0 in. (152.40 cm) (R); Pain 10/10; 20:00 BP 104 / 82; Pulse 98; Resp 16; Pulse Ox 96% on R/A; lp1 21:00 BP 111 / 78; Pulse 90; Resp 16; Pulse Ox 97% on R/A; lp1 21:42 BP 114 / 76; Pulse 92; Resp 16; Temp 98.4(O); Pulse Ox 97% on R/A; lp1 19:07 Body Mass Index 19.53 (45.36 kg, 152.40 cm) ak1 ED Course: 19:01 Patient arrived in ED. mr 19:02 None, None is Private Physician. mr 19:07 Arm band placed on Patient placed in an exam room, on a stretcher, Patient notified of ak1 wait time. 19:08 Triage completed. ak1 19:10 Mic Jimenez MD is Attending Physician. pkl 19:23 Roya Sifuentes, LANG is Primary Nurse. lp1 19:27 No provider procedures requiring assistance completed. mg2 19:28 Patient has correct armband on for positive identification. Placed in gown. Bed in low mg2 position. Side rails up X 1. Pulse ox on. NIBP on. 19:41 Inserted saline lock: 20 gauge in right antecubital area, using aseptic technique. jb5 Blood collected. 19:43 Basic Metabolic Panel Sent. jb5 19:43 Group A Streptococcus Rapid Sc Sent. jb5 19:43 CBC with Automated Diff Sent. jb5 19:43 Flu Sent. jb5 19:43 Chem 7 Sent. jb5 19:43 Strep Sent. jb5 19:43 CBC with Diff Sent. jb5 21:43 IV discontinued, No redness/swelling at site. Pressure dressing applied. lp1 Administered Medications: 19:36 Drug: Tylenol 500 mg Route: PO; mg2 21:30 Follow up: Response: Temperature is decreased lp1 19:36 Drug: Motrin 400 mg Route: PO; mg2 21:30 Follow up: Response: Temperature is decreased lp1 19:45 Drug: NS 0.9% 1000 ml Route: IV; Rate: 1000 ml; Site: right antecubital; lp1 21:00 Follow up: IV Status: Completed infusion; IV Intake: 1000ml lp1 Intake: 21:00 IV: 1000ml; Total: 1000ml. lp1 Outcome: 21:28 Discharge ordered by . pkl 21:43 Discharged to home ambulatory, with family. lp1 21:43 Condition: stable 21:43 Discharge instructions given to patient, Instructed on discharge instructions, follow up and referral plans. Demonstrated understanding of instructions, follow-up care. 21:44 Patient left the ED. lp1 Signatures: Mic Jimenez MD MD pkl Rivera, Mary Roya Sifuentes, RN RN lp1 Carolyn Augustin RN RN ak1 Alaina Diego jb5 Pablito Mares RN RN mg2 Corrections: (The following items were deleted from the chart) 21:43 21:42 BP 114 / 76; Pulse 92bpm; Resp 16bpm; Pulse Ox 97% RA; lp1 lp1
== END 2019-03-07 21:44 | disposition home or self-care (01) ==
LOC: ER 18:58
DX: O86.4 Pyrexia of unknown origin following delivery (principal); B97.89 Other viral agents as the cause of diseases classified elsewhere; R10.2 Pelvic and perineal pain; F41.9 Anxiety disorder, unspecified; F32.9 Major depressive disorder, single episode, unspecified; Z91.040 Latex allergy status; Z91.048 Other nonmedicinal substance allergy status
CPT/HCPCS: 36415; 80048; 81003; 81015; 85025; 87070; 87081; 87086; 87088; 87804; 96360; 99284; J7030

== ENCOUNTER 2019-04-29 07:19 | Emergency (ER) | payer OTHER ==
--- OUTSIDE RECORDS SUMMARY | 2019-04-29 07:22 | XMS REPORT ---
:1995 [facility] [address] [place] [address] Dr. Pace [address] [place] [id number] Care Team Providers Name Role Phone Unavailable Unavailable Unavailable Problems This patient has no known problems. Allergies, Adverse Reactions, Alerts This patient has no known allergies or adverse reactions. Medications This patient has no known medications.
[2019-04-29 08:04] LABS: Urine Blood 3+ (NEG); Urine Glucose NEGATIVE (NEG); Urine Protein 3+ (NEG)
[2019-04-29 08:13] LABS: Urine Bacteria 20-50 /HPF (<20); Urine Culture Reflex Order REFLEXED; Urine Mucus 1+ /HPF (NONE SEEN); Urine RBC >50 /HPF (NONE SEEN)
--- NOTE | 2019-04-29 08:16 | EDPHYS ---
Physician Documentation [facility] Name: Blank Armenta Age: 23 yrs Sex: Female : 1995 Arrival Date: 04/29/2019 Time: 07:25 Bed 19 Private MD: None, None ED Physician Tomy Lomeli HPI: 04/29 07:30 This 23 yrs old Female presents to ER via Unassigned with complaints of kb Urinary Frequency, Abdominal Pain. 07:30 The patient presents with urinary symptoms, dysuria, frequency. Onset: The kb symptoms/episode began/occurred yesterday. Modifying factors: The symptoms are alleviated by nothing, the symptoms are aggravated by urinating. Associated signs and symptoms: Pertinent positives: dysuria, urinary frequency, Pertinent negatives: constipation, cramping, diarrhea, dyspareunia, fever, hematuria, nausea, vaginal bleeding, vaginal discharge, vomiting. Severity of symptoms: At their worst the symptoms were moderate, in the emergency department the symptoms are unchanged. The patient has not experienced similar symptoms in the past. The patient has not recently seen a physician. "I'm having to pee every 2 minutes and it layton." States frequency started yesterday, burning started today. 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 tw Historical: - Allergies: 07:35 Latex, Natural Rubber; tw 07:35 No Known Drug Allergies; tw 07:33 Latex, Natural Rubber; ss - Home Meds: 07:35 Zoloft Oral [Active]; Vitamin Oral [Active]; tw 07:33 None [Active]; ss - PMHx: 07:35 insomnia; Depression; Anxiety; Anemia; tw2 07:33 Anemia; Depression; insomnia; Anxiety; ss - PSHx: 07:35 None; tw2 07:33 None; ss - Immunization history:: Adult Immunizations Adult Immunizations up to date. - Social history:: Smoking status: . - Ebola Screening: : Patient denies travel to an Ebola-affected area in the 21 days before illness onset. ROS: 07:29 Constitutional: Negative for fever, chills, and weight loss, ENT: Negative for injury, kb pain, and discharge, Neck: Negative for injury, pain, and swelling, Cardiovascular: Negative for chest pain, palpitations, and edema, Respiratory: Negative for shortness of breath, cough, wheezing, and pleuritic chest pain, Back: Negative for injury and pain, MS/Extremity: Negative for injury and deformity, Skin: Negative for injury, rash, and discoloration, Neuro: Negative for headache, weakness, numbness, tingling, and seizure. 07:29 Abdomen/GI: Positive for abdominal pain, Negative for nausea, vomiting, and diarrhea. 07:29 : Positive for urinary symptoms, urinary frequency, burning with urination. Exam: 07:29 Constitutional: This is a well developed, well nourished patient who is awake, alert, kb and in no acute distress. Head/Face: Normocephalic, atraumatic. Neck: Trachea midline, no thyromegaly or masses palpated, and no cervical lymphadenopathy. Supple, full range of motion without nuchal rigidity, or vertebral point tenderness. No Meningismus. Chest/axilla: Normal chest wall appearance and motion. Nontender with no deformity. No lesions are appreciated. Cardiovascular: Regular rate and rhythm with a normal S1 and S2. No gallops, murmurs, or rubs. Normal PMI, no JVD. No pulse deficits. Respiratory: Lungs have equal breath sounds bilaterally, clear to auscultation and percussion. No rales, rhonchi or wheezes noted. No increased work of breathing, no retractions or nasal flaring. Back: No spinal tenderness. No costovertebral tenderness. Full range of motion. Skin: Warm, dry with normal turgor. Normal color with no rashes, no lesions, and no evidence of cellulitis. MS/ Extremity: Pulses equal, no cyanosis. Neurovascular intact. Full, normal range of motion. Neuro: Awake and alert, GCS 15, oriented to person, place, time, and situation. Cranial nerves II-XII grossly intact. Motor strength 5/5 in all extremities. Sensory grossly intact. Cerebellar exam normal. Normal gait. 07:29 Abdomen/GI: Inspection: abdomen appears normal, Bowel sounds: normal, in all quadrants, Palpation: soft, in all quadrants, nontender, in the right upper quadrant, left upper quadrant, right lower quadrant and left lower quadrant, mild abdominal tenderness, in the suprapubic area. Vital Signs: 07:33 BP 124 / 71; Pulse 89; Resp 15; Temp 97.9(TE); Pulse Ox 100% on R/A; Weight 36.29 kg; ss Height 5 ft. 0 in. (152.40 cm); Pain 7/10; 07:33 Body Mass Index 15.62 (36.29 kg, 152.40 cm) ss MDM: 07:25 Patient medically screened. kb 07:29 Data reviewed: vital signs, nurses notes. Data interpreted: Pulse oximetry: on room air kb is 100 %. Interpretation: normal. 08:14 Counseling: I had a detailed discussion with the patient and/or guardian regarding: the kb historical points, exam findings, and any diagnostic results supporting the discharge/admit diagnosis, lab results, the need for outpatient follow up, a family practitioner, to return to the emergency department if symptoms worsen or persist or if there are any questions or concerns that arise at home. 04/29 07:28 Order name: Urine Microscopic Only; Complete Time: 08:15 kb 04/29 07:46 Order name: Urine Dipstick--Ancillary (enter results); Complete Time: 08:06 eb 04/29 07:46 Order name: Urine --Ancillary (enter results); Complete Time: 08:06 eb 04/29 08:16 Order name: Urine Culture EDPR 04/29 07:28 Order name: Urine Test (obtain specimen); Complete Time: 07:48 kb 04/29 07:28 Order name: Urine Dipstick-Ancillary (obtain specimen); Complete Time: 07:48 kb Administered Medications: 08:16 Drug: Macrobid 100 mg Route: PO; tw2 08:28 Follow up: Response: No adverse reaction tw2 08:16 Drug: Pyridium 100 mg Route: PO; tw2 08:28 Follow up: Response: No adverse reaction tw2 Disposition: 08:53 Co-signature as Attending Physician, Toym Lomeli MD. rn Disposition: 04/29/19 08:15 Discharged to Home. Impression: Urinary tract infection, site not specified. - Condition is Stable. - Discharge Instructions: Urinary Tract Infection, Adult, [id number]. - Prescriptions for Pyridium 200 mg Oral Tablet - take 1 tablet by ORAL route every 8 hours for 3 days; 9 tablet. Macrobid 100 mg Oral Capsule - take 1 capsule by ORAL route every 12 hours for 7 days; 14 capsule. - Medication Reconciliation Form, Thank You Letter, Antibiotic Education, Prescription Opioid Use, Work release form form. - Follow up: Emergency Department; When: As needed; Reason: Worsening of condition. Follow up: Private Physician; When: 2 - 3 days; Reason: Recheck today's complaints, Continuance of care, Re-evaluation by your physician. Signatures: Dispatcher [employer] EDPR Lexis Banerjee, SAFE DEPOSIT BOX RENTAL CLERK-C SAFE DEPOSIT BOX RENTAL CLERK-Ckb Tomy Lomeli MD MD rn Smirch, Shelby, RN RN ss Wise, Tara, RN RN tw2 Corrections: (The following items were deleted from the chart) 08:28 08:15 04/29/2019 08:15 Discharged to Home. Impression: Urinary tract infection, site tw2 not specified. Condition is Stable. Forms are Medication Reconciliation Form, Thank You Letter, Antibiotic Education, Prescription Opioid Use. Follow up: Emergency Department; When: As needed; Reason: Worsening of condition. Follow up: Private Physician; When: 2 - 3 days; Reason: Recheck today's complaints, Continuance of care, Re-evaluation by your physician. kb 08:28 08:28 04/29/2019 08:15 Discharged to Home. Impression: Urinary tract infection, site tw2 not specified. Condition is Stable. Discharge Instructions: Urinary Tract Infection, Adult, [id number]. Prescriptions for Pyridium 200 mg Oral Tablet - take 1 tablet by ORAL route every 8 hours for 3 days; 9 tablet, Macrobid 100 mg Oral Capsule - take 1 capsule by ORAL route every 12 hours for 7 days; 14 capsule. and Forms are Medication Reconciliation Form, Thank You Letter, Antibiotic Education, Prescription Opioid Use, Work release form. Follow up: Emergency Department; When: As needed; Reason: Worsening of condition. Follow up: Private Physician; When: 2 - 3 days; Reason: Recheck today's complaints, Continuance of care, Re-evaluation by your physician. tw2
--- NOTE | 2019-04-29 08:16 | ER ---
Nurse's Notes [facility] Name: Blank Armenta Age: 23 yrs Sex: Female : 1995 Arrival Date: 04/29/2019 Time: 07:25 Bed 19 Private MD: None, None Diagnosis: Urinary tract infection, site not specified Presentation: 04/29 07:32 Presenting complaint: Patient states: urinary frequency and suprapubic discomfort that ss began yesterday. Transition of care: patient was not received from another setting of care. Onset of symptoms was April 28, 2019. Risk Assessment: Do you want to hurt yourself or someone else? Patient reports no desire to harm self or others. Initial Sepsis Screen: Does the patient meet any 2 criteria? No. Patient's initial sepsis screen is negative. Does the patient have a suspected source of infection? No. Patient's initial sepsis screen is negative. Care prior to arrival: None. 07:32 Method Of Arrival: Ambulatory ss 07:32 Acuity: TEREZA 4 ss Triage Assessment: 07:35 General: Appears in no apparent distress. Behavior is calm, cooperative, appropriate tw2 for age. Pain: Denies pain. Neuro: Level of Consciousness is awake, alert, obeys commands, Oriented to person, place, time, situation. Cardiovascular: Patient's skin is warm and dry. Respiratory: Respiratory effort is even, unlabored, Respiratory pattern is regular, symmetrical. GI: Reports. : Reports burning with urination, urinary frequency. Derm: No signs and/or symptoms reported regarding the dermatologic system. Musculoskeletal: Range of motion: intact in all extremities. 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 tw2 Historical: - Allergies: 07:35 Latex, Natural Rubber; tw2 07:35 No Known Drug Allergies; tw2 07:33 Latex, Natural Rubber; ss - Home Meds: 07:35 Zoloft Oral [Active]; Vitamin Oral [Active]; tw2 07:33 None [Active]; ss - PMHx: 07:35 insomnia; Depression; Anxiety; Anemia; tw2 07:33 Anemia; Depression; insomnia; Anxiety; ss - PSHx: 07:35 None; tw2 07:33 None; ss - Immunization history:: Adult Immunizations Adult Immunizations up to date. - Social history:: Smoking status: . - Ebola Screening: : Patient denies travel to an Ebola-affected area in the 21 days before illness onset. Screenin:33 Abuse screen: Denies threats or abuse. Nutritional screening: No deficits noted. tw2 Tuberculosis screening: No symptoms or risk factors identified. Fall Risk None identified. Assessment: 07:36 Reassessment: see triage assessment. tw2 07:36 GI: Bowel sounds present X 4 quads. Abd is soft and non tender. tw2 08:27 Reassessment: Patient appears in no apparent distress at this time. No changes from tw2 previously documented assessment. Patient is alert, oriented x 3, equal unlabored respirations, skin warm/dry/pink. Vital Signs: 07:33 BP 124 / 71; Pulse 89; Resp 15; Temp 97.9(TE); Pulse Ox 100% on R/A; Weight 36.29 kg; ss Height 5 ft. 0 in. (152.40 cm); Pain 7/10; 07:33 Body Mass Index 15.62 (36.29 kg, 152.40 cm) ED Course: 07:24 Lexis Banerjee FNP-C [facility]. kb 07:24 Tomy Lomeli MD is Attending Physician. kb 07:25 Patient arrived in ED. dp 07:25 Bed in low position. Call light in reach. tw2 07:26 None, None is Private Physician. dp 07:33 Ashleigh Sahu, RN is Primary Nurse. tw2 07:33 Triage completed. ss 07:33 Arm band placed on. tw2 07:48 Urine collected: clean catch specimen, cloudy, fortunato colored. jb1 08:27 No provider procedures requiring assistance completed. Patient did not have IV access tw2 during this emergency room visit. Administered Medications: 08:16 Drug: Macrobid 100 mg Route: PO; tw2 08:28 Follow up: Response: No adverse reaction tw2 08:16 Drug: Pyridium 100 mg Route: PO; tw2 08:28 Follow up: Response: No adverse reaction tw2 Outcome: 08:15 Discharge ordered by . kb 08:27 Discharged to home ambulatory. tw2 08:27 Condition: stable 08:27 Discharge instructions given to patient, Instructed on discharge instructions, follow up and referral plans. medication usage, Demonstrated understanding of instructions, follow-up care, medications, Prescriptions given X 2. 08:28 Patient left the ED. tw2 Addendum: 05/02/2019 10:40 Addendum: Culture Results: Positive urine culture. No further action required. Bacteria i w sensitive to prescribed antibiotic. Signatures: [facility] jb1 Lexis Banerjee, ELECTRONIC NEWS GATHERING CAMERA PERSON-Darren ELECTRONIC NEWS GATHERING CAMERA PERSON-Goldie Sams RN RN iw Olga Lam RN RN ss Ashleigh Sahu RN RN tw2 Zakc Sifuentes
[2019-04-29] MEDS ORDERED: PHENAZOPYRIDINE 100MG TAB PO ONE (08:32)
[2019-04-29] MEDS ORDERED: NITROFURAN MACRO 100 MG CAP PO ONE (08:32)
== END 2019-04-29 08:28 | disposition home or self-care (01) ==
LOC: ER 07:19
DX: N39.0 Urinary tract infection, site not specified (principal); F41.8 Other specified anxiety disorders; Z91.040 Latex allergy status
CPT/HCPCS: 81003; 81015; 81025; 87077; 87086; 87088; 87186; 99283

== ENCOUNTER 2020-01-15 20:49 | Emergency (ER) | payer OTHER ==
--- OUTSIDE RECORDS SUMMARY | 2020-01-15 20:51 | XMS REPORT ---
:1995 [facility] Address [address] [place] [address] Dr. Pace [address] [place] [id number] Care Team Providers Name Role Phone Unavailable Unavailable Unavailable Problems This patient has no known problems. Allergies, Adverse Reactions, Alerts This patient has no known allergies or adverse reactions. Medications This patient has no known medications.
[2020-01-15] MEDS ORDERED: dexAMETHasone 4 MG/ML VIAL ONE (22:02)
[2020-01-15] MEDS ORDERED: NA CHLORIDE 0.9% 1,000 ML ONE (22:02)
[2020-01-15] MEDS ORDERED: FAMOTIDINE 20 MG/2 ML VIAL IV ONE (22:02)
[2020-01-15] MEDS ORDERED: DIPHENHYDRAMINE 50 MG/ML VIAL ONE (22:02)
--- NOTE | 2020-01-15 23:14 | EDPHYS ---
Physician Documentation [facility] Name: Blank Armenta Age: 24 yrs Sex: Female : 1995 Arrival Date: 01/15/2020 Time: 20:52 Bed 26 Private MD: ED Physician Timoteo Marin HPI: 01/15 21:38 This 24 yrs old Female presents to ER via Ambulatory with complaints of Sore pm1 throat, Breathing Difficulty. 21:38 The patient presents with sore throat, difficulty breathing. Onset: The pm1 symptoms/episode began/occurred today. Possible causes: pineapple. Ate at a [employer] restaurant and had pull pork with pineapple in it. Patient is not aware of her reaction to pineapple, Just told by her mother that she is allergic to it. At home the patient or guardian has treated the symptoms with nothing. Severity of symptoms: in the emergency department the symptoms are worse. It is unknown whether or not the patient has had similar symptoms in the past. It is unknown whether or not the patient has recently seen a physician. 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 - Coronavirus screen:: The patient has NOT traveled to [place] in the past 14 days. The patient has NOT had contact with known/suspected case of Coronavirus?. - Social history:: Smoking status: . - Ebola Screening: : Patient negative for fever greater than or equal to 101.5 degrees Fahrenheit, and additional compatible Ebola Virus Disease symptoms Patient denies exposure to infectious person Patient denies travel to an Ebola-affected area in the 21 days before illness onset No symptoms or risks identified at this time. ROS: 21:38 Constitutional: Negative for fever, chills, and weight loss. pm1 21:38 Neck: Negative for injury, pain, and swelling, Cardiovascular: Negative for chest pain, palpitations, and edema. 21:38 Abdomen/GI: Negative for abdominal pain, nausea, vomiting, diarrhea, and constipation, Back: Negative for injury and pain, MS/Extremity: Negative for injury and deformity, Skin: Negative for injury, rash, and discoloration. 21:38 Neuro: Negative for headache, weakness, numbness, tingling, and seizure. 21:38 ENT: Positive for sore throat, Negative for ear pain, difficulty swallowing, difficulty handling secretions, hoarseness. 21:38 Respiratory: Positive for shortness of breath, Negative for wheezing. Exam: 21:38 Constitutional: This is a well developed, well nourished patient who is awake, alert, pm1 and in no acute distress. Head/Face: Normocephalic, atraumatic. 21:38 Neck: Trachea midline, no thyromegaly or masses palpated, and no cervical lymphadenopathy. Supple, full range of motion without nuchal rigidity, or vertebral point tenderness. No Meningismus. Chest/axilla: Normal chest wall appearance and motion. Nontender with no deformity. No lesions are appreciated. Cardiovascular: Regular rate and rhythm with a normal S1 and S2. No gallops, murmurs, or rubs. Normal PMI, no JVD. No pulse deficits. Respiratory: Lungs have equal breath sounds bilaterally, clear to auscultation and percussion. No rales, rhonchi or wheezes noted. No increased work of breathing, no retractions or nasal flaring. Abdomen/GI: Soft, non-tender, with normal bowel sounds. No distension or tympany. No guarding or rebound. No evidence of tenderness throughout. Back: No spinal tenderness. No costovertebral tenderness. Full range of motion. Skin: Warm, dry with normal turgor. Normal color with no rashes, no lesions, and no evidence of cellulitis. MS/ Extremity: Pulses equal, no cyanosis. Neurovascular intact. Full, normal range of motion. 21:38 ENT: External ear(s): are unremarkable, Ear canal(s): are normal, TM's: are normal, Nose: is normal, Mouth: is normal, no drooling, (-) tongue elevation (-) trismus Posterior pharynx: is normal, airway is patent, no erythema, no exudate, no pooling of secretions, Voice: is normal. 21:38 Neuro: Orientation: is normal, Mentation: is normal, Motor: is normal, moves all fours. Vital Signs: 20:59 BP 106 / 72; Pulse 98; Resp 16; Temp 99.1; Pulse Ox 100% on R/A; Height 5 ft. 0 in. (152.40 cm); 21:01 Weight 40.37 kg (M); sg 22:55 BP 102 / 65; Pulse 94; Resp 16; Pulse Ox 100% on R/A; wh 21:01 Body Mass Index 17.38 (40.37 kg, 152.40 cm) MDM: 21:28 Patient medically screened. [facility] 23:11 Data reviewed: vital signs. Data interpreted: Pulse oximetry: on room air is 100 %. pm1 Interpretation: normal. Counseling: I had a detailed discussion with the patient and/or guardian regarding: the historical points, exam findings, and any diagnostic results supporting the discharge/admit diagnosis, the need for outpatient follow up, for definitive care, an allergy/follow up specialist, a family practitioner, to return to the emergency department if symptoms worsen or persist or if there are any questions or concerns that arise at home. 23:11 ED course: Patient reports resolution of symptoms with medications given in the ER. pm1 01/15 21:38 Order name: IV Saline Lock; Complete Time: 21:49 pm1 Administered Medications: 21:59 Drug: NS 0.9% 1000 ml Route: IV; Rate: 1000 ml; Site: right antecubital; 23:27 Follow up: Response: No adverse reaction; IV Status: Completed infusion 22:01 Drug: Pepcid 20 mg Route: IVP; Site: right antecubital; 23:26 Follow up: Response: No adverse reaction 22:03 Drug: Benadryl 12.5 mg Route: IVP; Site: right antecubital; 23:26 Follow up: Response: No adverse reaction 22:05 Drug: Decadron - Dexamethasone 10 mg Route: IVP; Site: right antecubital; 23:26 Follow up: Response: No adverse reaction Disposition: 01/16 07:08 Co-signature as Attending Physician, Timoteo Marin MD I agree with the assessment and [facility] plan of care. Disposition: 01/15/20 23:12 Discharged to Home. 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 - Condition is Stable. - Discharge Instructions: Food Allergy. - Prescriptions for Benadryl 25 mg Oral Capsule - take 1 capsule by ORAL route every 6 hours As needed; 30 tablet. Pepcid 20 mg Oral Tablet - take 1 tablet by ORAL route every 12 hours for 10 days; 20 tablet. Medrol (Torres) 4 mg Oral Tablets, Dose Pack - take 1 tablet by ORAL route as directed - follow package instructions; 1 packet. - Medication Reconciliation Form, Thank You Letter, Antibiotic Education, Prescription Opioid Use form. - Work release form (01/15/20 23:28). wh - Follow up: Emergency Department; When: As needed; Reason: Worsening of condition. Follow up: Private Physician; When: 2 - 3 days; Reason: Recheck today's complaints, Continuance of care, Re-evaluation by your physician. - Problem is new. - Symptoms are resolved. Signatures: Huseyin Morales, RN RN Timoteo Caban MD MD cha Marinas, Patrick, OUTPATIENT INTERVIEWING CLERK OUTPATIENT INTERVIEWING CLERK pm1 Penelope Castillo Corrections: (The following items were deleted from the chart) 01/15 23:27 23:12 01/15/2020 23:12 Discharged to Home. Impression: Allergy to other foods - wh pineapple. Condition is Stable. Forms are Medication Reconciliation Form, Thank You Letter, Antibiotic Education, Prescription Opioid Use. Follow up: Emergency Department; When: As needed; Reason: Worsening of condition. Follow up: Private Physician; When: 2 - 3 days; Reason: Recheck today's complaints, Continuance of care, Re-evaluation by your physician. Problem is new. Symptoms are resolved. pm1
--- NOTE | 2020-01-15 23:14 | ER ---
Nurse's Notes [facility] Name: Blank Armenta Age: 24 yrs Sex: Female : 1995 Arrival Date: 01/15/2020 Time: 20:52 Bed 26 Private MD: Diagnosis: Allergy to other foods-pineapple Presentation: 01/15 20:58 Presenting complaint: Patient states: Reports having shortness of breath with pain and sg swelling in the neck, reports chills, unsure of any fever at home, reports earlier today eating pineapple, reports a pineapple allergy but these symptoms are not like my reaction from before. Transition of care: patient was not received from another setting of care. Onset of symptoms was January 15, 2020. Risk Assessment: Do you want to hurt yourself or someone else? Patient reports no desire to harm self or others. Initial Sepsis Screen: Does the patient meet any 2 criteria? No. Patient's initial sepsis screen is negative. Does the patient have a suspected source of infection? No. Patient's initial sepsis screen is negative. Care prior to arrival: None. 20:58 Method Of Arrival: Ambulatory sg 20:58 Acuity: TEREZA 4 sg Triage Assessment: 21:30 Respiratory: Onset: The symptoms/episode began/occurred gradually, the patient reports wh symptoms have resolved. 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 - Coronavirus screen:: The patient has NOT traveled to [place] in the past 14 days. The patient has NOT had contact with known/suspected case of Coronavirus?. - Social history:: Smoking status: . - Ebola Screening: : Patient negative for fever greater than or equal to 101.5 degrees Fahrenheit, and additional compatible Ebola Virus Disease symptoms Patient denies exposure to infectious person Patient denies travel to an Ebola-affected area in the 21 days before illness onset No symptoms or risks identified at this time. Screenin:30 Abuse screen: Denies threats or abuse. Denies injuries from another. Nutritional wh screening: No deficits noted. Tuberculosis screening: No symptoms or risk factors identified. Fall Risk None identified. Assessment: 21:30 General: Appears in no apparent distress. Behavior is calm, cooperative, appropriate wh for age. Pain: Complains of pain in throat itchiness and headache. Pain:. Neuro: Level of Consciousness is awake, alert, obeys commands, Oriented to person, place, time, situation, Appropriate for age. Cardiovascular: Heart tones S1 S2 Rhythm is regular. Respiratory: Reports shortness of breath Airway is patent Respiratory effort is even, unlabored, Respiratory pattern is regular, symmetrical, Breath sounds are clear bilaterally. GI: Abdomen is flat, non-distended. : No signs and/or symptoms were reported regarding the genitourinary system. EENT: Throat is pink. Derm: Skin is intact, is healthy with good turgor, Skin is pink, warm \T\ dry. normal. Musculoskeletal: Circulation, motion, and sensation intact. 22:52 Reassessment: Patient appears in no apparent distress at this time. No changes from previously documented assessment. Patient and/or family updated on plan of care and expected duration. Pain level reassessed. Patient is alert, oriented x 3, equal unlabored respirations, skin warm/dry/pink. 23:25 Reassessment: Patient appears in no apparent distress at this time. No changes from previously documented assessment. Patient and/or family updated on plan of care and expected duration. Pain level reassessed. Patient is alert, oriented x 3, equal unlabored respirations, skin warm/dry/pink. Patient states feeling better. Patient states symptoms have improved. Vital Signs: 20:59 BP 106 / 72; Pulse 98; Resp 16; Temp 99.1; Pulse Ox 100% on R/A; Height 5 ft. 0 in. sg (152.40 cm); 21:01 Weight 40.37 kg (M); sg 22:55 BP 102 / 65; Pulse 94; Resp 16; Pulse Ox 100% on R/A; wh 21:01 Body Mass Index 17.38 (40.37 kg, 152.40 cm) ED Course: 20:52 Patient arrived in ED. jg7 20:58 Triage completed. sg 20:58 Arm band placed on. 21:19 Penelope Castillo is Primary Nurse. 21:22 Jeremiah Barba NP is PHCP. pm1 21:22 Timoteo Marin MD is Attending Physician. pm1 21:30 Patient has correct armband on for positive identification. Bed in low position. Call light in reach. Side rails up X 1. Pulse ox on. NIBP on. 21:54 Warm blanket given. Pillow given. Verbal reassurance given. jb5 21:54 Inserted saline lock: 22 gauge in left antecubital area, using aseptic technique. Blood jb5 collected. 23:25 No provider procedures requiring assistance completed. IV discontinued, intact, bleeding controlled, No redness/swelling at site. Administered Medications: 21:59 Drug: NS 0.9% 1000 ml Route: IV; Rate: 1000 ml; Site: right antecubital; 23:27 Follow up: Response: No adverse reaction; IV Status: Completed infusion 22:01 Drug: Pepcid 20 mg Route: IVP; Site: right antecubital; 23:26 Follow up: Response: No adverse reaction 22:03 Drug: Benadryl 12.5 mg Route: IVP; Site: right antecubital; 23:26 Follow up: Response: No adverse reaction 22:05 Drug: Decadron - Dexamethasone 10 mg Route: IVP; Site: right antecubital; 23:26 Follow up: Response: No adverse reaction Outcome: 23:12 Discharge ordered by MD. pm1 23:26 Discharged to home ambulatory, with family. 23:26 Condition: stable 23:26 Discharge instructions given to patient, family, Instructed on discharge instructions, follow up and referral plans. medication usage, POC Demonstrated understanding of instructions, follow-up care, medications, POC Prescriptions given X 3. 23:27 Patient left the ED. Signatures: Huseyin Morales RN RN sg Jeremiah Barba NP ELECTRIC DOLLY OPERATOR pm1 Alaina Diego jb5 Penelope Castillo Maida Truong jg7 Corrections: (The following items were deleted from the chart) 21:01 20:58 Presenting complaint: Patient states: Reports having shortness of breath with sg pain and swelling in the neck, reports chills, unsure of any fever at home sg
[2020-01-16 01:19] VITALS: TEMP 99.1; O2SAT 100
[2020-01-16 01:23] VITALS: BP 102/65
== END 2020-01-15 23:27 | disposition home or self-care (01) ==
LOC: ER 20:49
DX: R06.02 Shortness of breath (principal); Z91.018 Allergy to other foods; F34.1 Dysthymic disorder; Z91.040 Latex allergy status; Z91.048 Other nonmedicinal substance allergy status
CPT/HCPCS: 96361; 96375; 96374; 99284; J1200; J7030

== ENCOUNTER 2022-03-30 20:54 | Emergency (ER) | payer OTHER ==
--- OUTSIDE RECORDS SUMMARY | 2022-03-30 20:58 | XMS REPORT | Continuity of Care Document ---
:1995 Author Organization [facility] t Address [address] [place] [address] Care Team Providers Name Role Phone Pcp, Does Not Have A Primary Care Physician Green REPACK ROOM WORKER Attending Clinician Daysi REPACK ROOM WORKER Attending Clinician Ebrahim REPACK ROOM WORKER Attending Clinician TRITSCHLER Attending Clinician Unavailable TRITSCHLER Attending Clinician Unavailable EBRAHIM Attending Clinician Unavailable Doctor Unassigned, Name Attending Clinician Unavailable VASHTI Attending Clinician Unavailable Payers Payer Name Policy Type Policy Number Effective Date Expiration Date S ource Advance Directives Directive Decision Effective Termination Comments Source Date Date Healthcare Agents on N/A NPI: 183 FileNameRelationshipHealthcare Agent [id number] RelationshipCommunicationMargarita EscobedoMotherHealth Care [phone] (Mobile) Rashel FletcherOtherSecond Alternate Health Care [phone] (Mobile) Problems Condition Condition Condition Status Onset Resolution Last Treating Co mments Source Name Details Category Date Date Treatment Clinician Date Disease Active NPI:183 (spontaneo (spontaneo 4-11 13 27728 us vaginal us vaginal 00:00: delivery) delivery) 00 Single Single Disease Active NPI:183 live live 03-02 00:00: 00 Anemia, Anemia, Disease Active NPI:183 03-02 00:00: 00 History of History of Disease Active N PI:183 depression depression 03-02 with with 00:00: suicidal suicidal 00 ideation ideation 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 03-01 [id number] phase of phase of 00:00: labor labor 00 39 weeks 39 weeks Disease Active NPI:1 83 gestation gestation 03-01 1318 781 of of 00:00: 00 Indication Indication Disease Active N PI:183 for care for care 03-01 880483 1 or or 00:00: interventi interventi 00 on in on in labor or labor or delivery-L delivery-L abor at abor at Term Term Late Late Disease Active 2017-11 NPI:183 01-02 [id number] 1 care care 00:00: 00 Multiparit Multiparit Disease Active 2017-11 N PI:183 y y 01-02 8483187 00:00: 00 Supervisio Supervisio Disease Active 2014-11 N PI:183 n of high n of high 1318 781 risk risk 00:00: , , 00 antepartum antepartum Anemia of Anemia of Disease Active 2014-11 NPI :183 mother in mother in 12-25 1318 781 , , 00:00: antepartum antepartum 00 Allergies, Adverse Reactions, Alerts Allergy Allergy Status Severity Reaction(s) Onset Inactive Treating Comm ents Source Name Type Date Date Clinician Latex Drug Active Itching NPI:183 Allergy 03-02 6411005 00:00: 00 LATEX DRUG Active Med ITCHING NPI:183 INGREDI 03-02 [id number] 00:00: 00 Social History Social Habit Start Date Stop Date Quantity Comments Source Exposure to Not sure NPI:[id number] 1 SARS-CoV-2 (event) Alcohol intake 2022-02-27 2022-02-27 Current NPI:[id number] 0733 00:00:00 00:00:00 non-drinker of alcohol (finding) Tobacco use and 2018-11-01 2018-11-01 Never used NPI:[id number] 20334 exposure 00:00:00 00:00:00 History of 2018-07-02 Smoker tobacco use 00:00:00 Sex [birth year] At [birth year] NPI:17292 27339 00:00:00 00:00:00 Smoking Status Start Date Stop Date Source Former smoker 2018-11-01 00:00:00 2018-11-01 00:00:00 NPI:1831 [id number] Medications Ordered Filled Start Stop Current Ordering Indication Dosage Frequency Signature Comments Components Source Medication Medication Date Date Medication? Clinician (SIG) Name Name metroNIDAZO 2021- Yes [id number] 500mg Take 1 NPI:183 LE 500 mg 03-0118 tablet by 1318 781 tablet 00:00: 04:59 mouth 00 :00 every 12 (twelve) hours for 7 days. metroNIDAZO 2021- Yes [id number] 500mg Take 1 NPI:183 LE 500 mg 03-0118 tablet by 1318 781 tablet 00:00: 04:59 mouth 00 :00 every 12 (twelve) hours for 7 days. Nitrofurant 2021- Yes [id number] 100mg Take 1 NPI:183 oin&Nit. 02-27-14 capsule by 1318 781 Macrocryst 00:00: 04:59 mouth 2 (MACROBID) 00 :00 (two) 100 mg times capsule daily with meals for 5 days. Nitrofurant 2021- Yes [id number] 100mg Take 1 NPI:183 oin&Nit. 02-27-14 capsule by 1318 781 Macrocryst 00:00: 04:59 mouth 2 (MACROBID) 00 :00 (two) 100 mg times capsule daily with meals for 5 days. Nitrofurant 2021- Yes [id number] 100mg Take 1 NPI:183 oin&Nit. 02-27-14 capsule by 1318 781 Macrocryst 00:00: 04:59 mouth 2 (MACROBID) 00 :00 (two) 100 mg times capsule daily with meals for 5 days. Nitrofurant 2021- Yes [id number] 100mg Take 1 NPI:183 oin&Nit. 02-27-14 capsule by 1318 781 Macrocryst 00:00: 04:59 mouth 2 (MACROBID) 00 :00 (two) 100 mg times capsule daily with meals for 5 days. docusate Yes [id number] 240mg Take 1 N PI:183 calcium 240 4-12 capsule by 13 63401 mg capsule 00:00: mouth once 00 daily as needed for Constipati on. ibuprofen Yes [id number] 600mg Take 1 NPI:183 600 mg 4-12 tablet by [id number] tablet 00:00: mouth 00 every 6 (six) hours as needed for Pain (scale 1-3) or Pain (scale 4-6) (Pain). Take with food or milk. Iron Fum & Yes [id number] 1{capsu Take 1 NPI:183 P-FA-Vit B 4-12 le} capsule by 131 8781 & C No.9 00:00: mouth (INTEGRA 00 daily. PLUS) 125 mg iron- 1 mg Cap SERTraline Yes [id number] 25mg Take 1 NPI:183 25 mg 4-12 tablet by [id number] tablet 00:00: mouth 00 daily. docusate Yes [id number] 240mg Take 1 N PI:183 calcium 240 4-12 capsule by 13 93317 mg capsule 00:00: mouth once 00 daily as needed for Constipati on. ibuprofen Yes [id number] 600mg Take 1 NPI:183 600 mg 4-12 tablet by [id number] tablet 00:00: mouth 00 every 6 (six) hours as needed for Pain (scale 1-3) or Pain (scale 4-6) (Pain). Take with food or milk. Iron Fum & Yes [id number] 1{capsu Take 1 NPI:183 P-FA-Vit B 4-12 le} capsule by 131 8781 & C No.9 00:00: mouth (INTEGRA 00 daily. PLUS) 125 mg iron- 1 mg Cap SERTraline 2018- Yes [id number] 25mg Take 1 NPI:183 25 mg 4-12 tablet by [id number] tablet 00:00: mouth 00 daily. docusate Yes [id number] 240mg Take 1 N PI:183 calcium 240 4-12 capsule by 13 60402 mg capsule 00:00: mouth once 00 daily as needed for Constipati on. ibuprofen Yes [id number] 600mg Take 1 NPI:183 600 mg 4-12 tablet by 1134101 tablet 00:00: mouth 00 every 6 (six) hours as needed for Pain (scale 1-3) or Pain (scale 4-6) (Pain). Take with food or milk. Iron Fum & 2018- Yes [id number] 1{capsu Take 1 NPI:183 P-FA-Vit B 4-12 le} capsule by 131 8781 & C No.9 00:00: mouth (INTEGRA 00 daily. PLUS) 125 mg iron- 1 mg Cap SERTraline Yes [id number] 25mg Take 1 NPI:183 25 mg 4-12 tablet by [id number] tablet 00:00: mouth 00 daily. docusate Yes [id number] 240mg Take 1 N PI:183 calcium 240 4-12 capsule by 13 14306 mg capsule 00:00: mouth once 00 daily as needed for Constipati on. ibuprofen Yes [id number] 600mg Take 1 NPI:183 600 mg 4-12 tablet by [id number] tablet 00:00: mouth 00 every 6 (six) hours as needed for Pain (scale 1-3) or Pain (scale 4-6) (Pain). Take with food or milk. Iron Fum & Yes [id number] 1{capsu Take 1 NPI:183 P-FA-Vit B 4-12 le} capsule by 131 8781 & C No.9 00:00: mouth (INTEGRA 00 daily. PLUS) 125 mg iron- 1 mg Cap SERTraline Yes [id number] 25mg Take 1 NPI:183 25 mg 4-12 tablet by [id number] tablet 00:00: mouth 00 daily. Immunizations Ordered Immunization Filled Immunization Date Status Commen ts Source Name Name TDAP 2018-12-19 Completed NPI:[id number] 00:00:00 1 TDAP 2018-12-19 Completed NPI:[id number] 00:00:00 1 TDAP 2018-12-19 Completed NPI:[id number] 00:00:00 1 TDAP 2018-12-19 Completed NPI:[id number] 00:00:00 1 TDAP 2015-10-09 Completed NPI:[id number] 00:00:00 1 TDAP 2015-10-09 Completed NPI:[id number] 00:00:00 1 TDAP 2015-10-09 Completed NPI:[id number] 00:00:00 1 TDAP 2015-10-09 Completed NPI:[id number] 00:00:00 1 Influenza Virus 2015-08-14 Completed NPI:[id number] Vaccine Quad IM 3+ 00:00:00 1 YRS Influenza Virus 2015-08-14 Completed NPI:[id number] Vaccine Quad IM 3+ 00:00:00 1 YRS Influenza Virus 2015-08-14 Completed NPI:[id number] 1878 Vaccine Quad IM 3+ 00:00:00 1 YRS Influenza Virus 2015-08-14 Completed NPI:[id number] 1878 Vaccine Quad IM 3+ 00:00:00 1 YRS PPD (TB) 2015-05-15 Completed NPI:[id number] 00:00:00 1 PPD (TB) 2015-05-15 Completed NPI:[id number] 00:00:00 1 PPD (TB) 2015-05-15 Completed NPI:[id number] 00:00:00 1 PPD (TB) 2015-05-15 Completed NPI:[id number] 00:00:00 1 Meningococcal Vaccine 2011-02-06 Completed NPI :[id number] 00:00:00 1 TDAP 2011-02-06 Completed NPI:[id number] 00:00:00 1 Varicella 2011-02-06 Completed NPI:[id number] (varivax)(chicken 00:00:00 1 pox) Meningococcal Vaccine 2011-02-06 Completed NPI :[id number] 00:00:00 1 TDAP 2011-02-06 Completed NPI:[id number] 00:00:00 1 Varicella 2011-02-06 Completed NPI:[id number] (varivax)(chicken 00:00:00 1 pox) Meningococcal Vaccine 2011-02-06 Completed NPI :[id number] 00:00:00 1 TDAP 2011-02-06 Completed NPI:[id number] 00:00:00 1 Varicella 2011-02-06 Completed NPI:[id number] (varivax)(chicken 00:00:00 1 pox) Meningococcal Vaccine 2011-02-06 Completed NPI :[id number] 00:00:00 1 TDAP 2011-02-06 Completed NPI:[id number] 00:00:00 1 Varicella 2011-02-06 Completed NPI:[id number] (varivax)(chicken 00:00:00 1 pox) Hep B, Adol or Pedi 2002-07-18 Completed NPI:1 [id number] Dosage 00:00:00 1 Hep B, Adol or Pedi 2002-07-18 Completed NPI:1 [id number] Dosage 00:00:00 1 Hep B, Adol or Pedi 2002-07-18 Completed NPI:1 [id number] Dosage 00:00:00 1 Hep B, Adol or Pedi 2002-07-18 Completed NPI:1 [id number] Dosage 00:00:00 1 MMR 2002-06-28 Completed NPI:[id number] 00:00:00 1 Polio (IPV/OPV) 2002-06-28 Completed NPI:[id number] 00:00:00 1 DTAP 2002-06-28 Completed NPI:[id number] 00:00:00 1 MMR 2002-06-28 Completed NPI:[id number] 00:00:00 1 Polio (IPV/OPV) 2002-06-28 Completed NPI:[id number] 1878 00:00:00 1 DTAP 2002-06-28 Completed NPI:[id number] 00:00:00 1 MMR 2002-06-28 Completed NPI:[id number] 00:00:00 1 Polio (IPV/OPV) 2002-06-28 Completed NPI:[id number] 1878 00:00:00 1 DTAP 2002-06-28 Completed NPI:[id number] 00:00:00 1 MMR 2002-06-28 Completed NPI:[id number] 00:00:00 1 Polio (IPV/OPV) 2002-06-28 Completed NPI:[id number] 1878 00:00:00 1 DTAP 2002-06-28 Completed NPI:[id number] 00:00:00 1 HIB 4 Dose Schedule 1999-11-10 Completed NPI:1 [id number] 00:00:00 1 DTAP 1999-11-10 Completed NPI:[id number] 00:00:00 1 HIB 4 Dose Schedule 1999-11-10 Completed NPI:1 [id number] 00:00:00 1 DTAP 1999-11-10 Completed NPI:[id number] 00:00:00 1 HIB 4 Dose Schedule 1999-11-10 Completed NPI:1 [id number] 00:00:00 1 DTAP 1999-11-10 Completed NPI:[id number] 00:00:00 1 HIB 4 Dose Schedule 1999-11-10 Completed NPI:1 [id number] 00:00:00 1 DTAP 1999-11-10 Completed NPI:[id number] 00:00:00 1 MMR 1999-06-04 Completed NPI:[id number] 00:00:00 1 Polio (IPV/OPV) 1999-06-04 Completed NPI:[id number] 00:00:00 1 Varicella 1999-06-04 Completed NPI:[id number] (varivax)(chicken 00:00:00 1 pox) MMR 1999-06-04 Completed NPI:[id number] 00:00:00 1 Polio (IPV/OPV) 1999-06-04 Completed NPI:[id number] 1878 00:00:00 1 Varicella 1999-06-04 Completed NPI:[id number] (varivax)(chicken 00:00:00 1 pox) MMR 1999-06-04 Completed NPI:[id number] 00:00:00 1 Polio (IPV/OPV) 1999-06-04 Completed NPI:[id number] 1878 00:00:00 1 Varicella 1999-06-04 Completed NPI:[id number] (varivax)(chicken 00:00:00 1 pox) MMR 1999-06-04 Completed NPI:[id number] 00:00:00 1 Polio (IPV/OPV) 1999-06-04 Completed NPI:[id number] 1878 00:00:00 1 Varicella 1999-06-04 Completed NPI:[id number] (varivax)(chicken 00:00:00 1 pox) HIB 4 Dose Schedule 1998-05-21 Completed NPI:1 [id number] 00:00:00 1 Hep B, Adol or Pedi 1998-05-21 Completed NPI:1 [id number] Dosage 00:00:00 1 DTAP 1998-05-21 Completed NPI:[id number] 00:00:00 1 HIB 4 Dose Schedule 1998-05-21 Completed NPI:1 [id number] 00:00:00 1 Hep B, Adol or Pedi 1998-05-21 Completed NPI:1 [id number] Dosage 00:00:00 1 DTAP 1998-05-21 Completed NPI:[id number] 00:00:00 1 HIB 4 Dose Schedule 1998-05-21 Completed NPI:1 [id number] 00:00:00 1 Hep B, Adol or Pedi 1998-05-21 Completed NPI:1 [id number] Dosage 00:00:00 1 DTAP 1998-05-21 Completed NPI:[id number] 00:00:00 1 HIB 4 Dose Schedule 1998-05-21 Completed NPI:1 [id number] 00:00:00 1 Hep B, Adol or Pedi 1998-05-21 Completed NPI:1 [id number] Dosage 00:00:00 1 DTAP 1998-05-21 Completed NPI:[id number] 00:00:00 1 HIB 4 Dose Schedule 1998-04-04 Completed NPI:1 [id number] 00:00:00 1 Polio (IPV/OPV) 1998-04-04 Completed NPI:[id number] 1878 00:00:00 1 DTAP 1998-04-04 Completed NPI:[id number] 00:00:00 1 HIB 4 Dose Schedule 1998-04-04 Completed NPI:1 [id number] 00:00:00 1 Polio (IPV/OPV) 1998-04-04 Completed NPI:[id number] 1878 00:00:00 1 DTAP 1998-04-04 Completed NPI:[id number] 00:00:00 1 HIB 4 Dose Schedule 1998-04-04 Completed NPI:1 [id number] 00:00:00 1 Polio (IPV/OPV) 1998-04-04 Completed NPI:[id number] 1878 00:00:00 1 DTAP 1998-04-04 Completed NPI:[id number] 00:00:00 1 HIB 4 Dose Schedule 1998-04-04 Completed NPI:1 [id number] 00:00:00 1 Polio (IPV/OPV) 1998-04-04 Completed NPI:[id number] 1878 00:00:00 1 DTAP 1998-04-04 Completed NPI:[id number] 00:00:00 1 Hep B, Adol or Pedi 1998-01-31 Completed NPI:1 [id number] Dosage 00:00:00 1 Polio (IPV/OPV) 1998-01-31 Completed NPI:[id number] 1878 00:00:00 1 DTAP 1998-01-31 Completed NPI:[id number] 00:00:00 1 HIB 4 Dose Schedule 1998-01-31 Completed NPI:1 [id number] 00:00:00 1 Hep B, Adol or Pedi 1998-01-31 Completed NPI:1 [id number] Dosage 00:00:00 1 Polio (IPV/OPV) 1998-01-31 Completed NPI:[id number] 1878 00:00:00 1 DTAP 1998-01-31 Completed NPI:[id number] 00:00:00 1 HIB 4 Dose Schedule 1998-01-31 Completed NPI:1 [id number] 00:00:00 1 Hep B, Adol or Pedi 1998-01-31 Completed NPI:1 [id number] Dosage 00:00:00 1 Polio (IPV/OPV) 1998-01-31 Completed NPI:[id number] 00:00:00 1 DTAP 1998-01-31 Completed NPI:[id number] 00:00:00 1 HIB 4 Dose Schedule 1998-01-31 Completed NPI:1 [id number] 00:00:00 1 Hep B, Adol or Pedi 1998-01-31 Completed NPI:1 [id number] Dosage 00:00:00 1 Polio (IPV/OPV) 1998-01-31 Completed NPI:[id number] 1878 00:00:00 1 DTAP 1998-01-31 Completed NPI:[id number] 00:00:00 1 HIB 4 Dose Schedule 1998-01-31 Completed NPI:1 [id number] 00:00:00 1 Vital Signs Vital Name Observation Time Observation Value Comments Source Systolic blood pressure 2022-02-27 23:25:00 108 mm[Hg] Diastolic blood 2022-02-27 23:25:00 68 mm[Hg] NPI:1 [id number] pressure Heart rate 2022-02-27 23:25:00 71 /min NPI:1831 [id number] Body temperature 2022-02-27 23:25:00 36.67 Jenny Respiratory rate 2022-02-27 23:25:00 17 /min Body height 2022-02-27 23:25:00 152.4 cm NPI:1831 [id number] Body weight 2022-02-27 23:25:00 47.628 kg NPI:1831 [id number] BMI 2022-02-27 23:25:00 20.51 kg/m2 NPI:1831 [id number] Oxygen saturation in 2022-02-27 23:25:00 99 /min Arterial blood by Pulse oximetry Procedures Procedure Date / Time Performed Performing Clinician [facility] e ASSIGNMENT OF BENEFITS 2022-02-27 23:44:23 Doctor Unassigned, No Name POCT URINALYSIS 2022-02-27 23:33:00 Lois Tavarez NPI:[id number] POCT TEST 2022-02-27 23:33:00 Lois Tavarez NPI:18 [id number] Encounters Start End Encounter Admission Attending Care Care Encounter Source Date/Time Date/Time Type Type Clinicians Facility Department ID 2022-03-01 2022-03-01 [facility] [id number] NPI:183 00:00:00 00:00:00 [facility] 350.1.13.10 [id number] [facility] 4.2.7.2.686 VERNON?BLEA [id number] [place] [address] [facility] 2022-03-01 2022-03-01 Telephone [facility] [id number] NPI:183 00:00:00 00:00:00 [facility] 350.1.13.10 [id number] [place] 4.2.7.2.686 VERNON?BLEA [id number] [place] [address] MEDICAL OFFICE BUILDING 2022-02-27 2022-02-27 [facility] [id number]. [id number] NPI:183 18:20:00 18:40:00 Care Stew Adorno [facility] 350.1.13.10 [id number] [place] 4.2.7.2.686 VERNON?BLEA [id number] [place] [address] MEDICAL OFFICE BUILDING 2022-02-27 2022-02-27 Outpatient R QUYEN TOLBERT [facility] B [id number] NPI:183 18:20:00 18:20:00 [facility] [id number] 2022-02-27 Outpatient R TELLY [facility] [id number] NPI:183 18:20:00 18:20:00 STEW [id number] 2022-02-27 2022-02-27 Outpatient R TOMASZ [facility] B [id number] NPI:183 15:30:00 15:30:00 QUYEN TOLBERT [id number] 2022-02-27 Orders Doctor CARLOS [id number] NPI:183 00:00:00 00:00:00 Only Unassigned, SINGERS GLEN 350.1.13.10 [id number] [place] [facility] 4.2.7.2.686 [id number] 2022-02-07 2022-02-07 [facility] [id number] NPI:183 12:40:00 14:18:08 CARLOS [id number] 2022-02-07 2022-02-07 Outpatient R [facility] [id number] NPI:183 12:40:00 12:40:00 [id number] Results Test Description Test Time Test Comments Results Result Comments Source POCT URINALYSIS W SPECIFIC GRAVITY 2022-02-27 23:34:00 Test Item Value Reference Range Interpretation Comme nts POCT U SP GRAV (test code = 1.020 mg/dl 1.005-1.025 3255) POCT PH U (test code = 3254) 5 mg/dl 5-8 POCT U LEUK EST (test code = ++ Negative - Negative 3263) POCT U NIT (test code = 3262) positive Negative - Negative POCT U PROT (test code = 3259) trace Negative - Negative POCT U GLU (test code = 3256) normal Negative - Negative POCT U KETONE (test code = negative Negative - Negative 3258) POCT U UROBILI (test code = normal 0.2-1 3260) POCT U BILI (test code = 3261) negative Negative - Negative POCT U BLD (test code = 3257) trace Negative - Negative POCT U COLOR (test code = 3266) dark yellow POCT U APPEAR (test code = cloudy 3267) MARC (test code = MARC) accurate development and interpretation of all internal controls Lab Interpretation (test code = Abnormal 45497-1) NPI:[id number] [id number] 23:33:00 Test Item Value Reference Range Interpretation Comments POCT PREG (test code = Negative 1605) On board controls Yes acceptable with C Line (test code = 3574) POCT PREG LOT # (test code = 3575) POCT PREG TEST DATE (test code = 3576) MARC (test code = MARC) accurate development and interpretation of all internal controls Lab Interpretation Normal (test code = 84454-2)
--- NOTE | 2022-03-30 21:50 | RAD REPORT ---
EXAM DESCRIPTION: RAD - Chest Pa And Lat (2 Views) - 03/30/2022 9:33 pm CLINICAL HISTORY: CHEST PAIN Chest pain. COMPARISON: <Comparisons> FINDINGS: The lungs are clear. The heart is normal in size. No displaced fractures. IMPRESSION: No acute or concerning finding suspected.
--- NOTE | 2022-03-30 22:05 | ER ---
Nurse's Notes [facility] Name: Blank Armenta Age: 26 yrs Sex: Female : 1995 Arrival Date: 03/30/2022 Time: 20:59 Bed 14 Private MD: Diagnosis: SARS-associated coronavirus as the cause of diseases classified elsewhere Presentation: 03/30 21:16 Chief complaint: Patient states: I tested positive for COVID today - C/O chest pain ld1 since this morning. Coronavirus screen: Client presents with at least one sign or symptom that may indicate coronavirus-19. Client reports previous positive COVID test result. Ebola Screen: No symptoms or risks identified at this time. Initial Sepsis Screen: Does the patient meet any 2 criteria? No. Patient's initial sepsis screen is negative. Does the patient have a suspected source of infection? No. Patient's initial sepsis screen is negative. Risk Assessment: Do you want to hurt yourself or someone else? Patient reports no desire to harm self or others. Onset of symptoms was March 30, 2022. 21:16 Method Of Arrival: Ambulatory ld1 21:16 Acuity: TEREZA 3 ld1 Triage Assessment: 21:18 General: Appears in no apparent distress. comfortable, Behavior is calm, cooperative, ld1 appropriate for age. Pain: Complains of pain in chest Pain does not radiate. Pain currently is 7 out of 10 on a pain scale. Quality of pain is described as aching, throbbing. EENT: No signs and/or symptoms were reported regarding the EENT system. Neuro: Level of Consciousness is awake, alert, obeys commands, Oriented to person, place, time, situation. Cardiovascular: Capillary refill < 3 seconds Patient's skin is warm and dry. Rhythm is regular. Respiratory: Airway is patent Respiratory effort is even, unlabored, Respiratory pattern is regular, symmetrical. GI: Abdomen is flat, non-distended. : No signs and/or symptoms were reported regarding the genitourinary system. Derm: No signs and/or symptoms reported regarding the dermatologic system. Musculoskeletal: No signs and/or symptoms reported regarding the musculoskeletal system. 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 - Social history:: Smoking status: Patient denies any tobacco usage or history of. Patient uses alcohol, occasionally. Screenin:19 Abuse screen: Denies threats or abuse. Denies injuries from another. Nutritional ld1 screening: No deficits noted. Tuberculosis screening: No symptoms or risk factors identified. Fall Risk None identified. Vital Signs: 21:16 BP 123 / 71; Pulse 89; Resp 22; Temp 98.3(TE); Pulse Ox 100% on R/A; Weight 47.63 kg; ld1 Height 5 ft. 0 in. (152.40 cm); Pain 7/10; 21:16 Body Mass Index 20.51 (47.63 kg, 152.40 cm) ld1 ED Course: 20:59 Patient arrived in ED. [facility] 21:05 [facility]ara [facility] 21:05 Tomy Lomeli MD is Attending Physician. 7 21:18 Triage completed. ld1 21:18 Arm band placed on right wrist. ld1 21:19 Patient has correct armband on for positive identification. Placed in gown. Bed in low ld1 position. Call light in reach. Side rails up X2. quality assurance monitor on. Pulse ox on. NIBP on. Door closed. Noise minimized. Warm blanket given. 21:19 No provider procedures requiring assistance completed. Patient maintains SpO2 ld1 saturation greater than 95% on room air. 21:35 Chest Pa And Lat (2 Views) XRAY In Process Unspecified. EDMS 22:13 Javier Colindres, RN is Primary Nurse. ke1 22:19 Patient did not have IV access during this emergency room visit. ke1 Administered Medications: No medications were administered Outcome: 22:04 Discharge ordered by . [facility] 22:18 Discharged to home ambulatory. ke1 22:18 Condition: good 22:18 Discharge instructions given to patient. 22:20 Patient left the ED. ke1 Signatures: Dispatcher [employer] EDMS Lois Rizzo Lauren, RN RN [facility] Javier Colindres RN RN [facility] Alaina Camara, DEVELOPMENT TRAINER DEVELOPMENT TRAINER jh7
--- NOTE | 2022-03-30 22:05 | EDPHYS ---
Physician Documentation [facility] Name: Blank Armenta Age: 26 yrs Sex: Female : 1995 Arrival Date: 03/30/2022 Time: 20:59 Bed 14 Private MD: ED Physician Tomy Lomeli HPI: 03/30 21:25 This 26 yrs old Female presents to ER via Ambulatory with complaints of Chest jh7 Pain. 21:25 Onset: The symptoms/episode began/occurred today. Associated signs and symptoms: jh7 Pertinent positives: congestion, sore throat, body aches. Patient reports chest tightness, body aches, nasal congestion, and sore throat starting today. Reports that she took a COVID test today and that it was positive. States that she just got really scared and wanted to get checked out. No medical problems.. 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 - Social history:: Smoking status: Patient denies any tobacco usage or history of. Patient uses alcohol, occasionally. ROS: 21:25 Constitutional: Negative for fever, chills, and weight loss, Eyes: Negative for injury, jh7 pain, redness, and discharge, Abdomen/GI: Negative for abdominal pain, nausea, vomiting, diarrhea, and constipation, Back: Negative for injury and pain, Skin: Negative for injury, rash, and discoloration, Neuro: Negative for headache, weakness, numbness, tingling, and seizure. 21:25 ENT: Positive for nasal discharge, sore throat, Negative for ear pain, Teeth pain sinus congestion, difficulty swallowing. 21:25 Cardiovascular: Positive for chest pain, with cough, Negative for orthopnea, palpitations. 21:25 Respiratory: Positive for cough. 21:25 Respiratory: Negative for shortness of breath, wheezing. Exam: 21:25 Constitutional: This is a well developed, well nourished patient who is awake, alert, jh7 and in no acute distress. Cardiovascular: Regular rate and rhythm with a normal S1 and S2. No gallops, murmurs, or rubs. Normal PMI, no JVD. No pulse deficits. Respiratory: Lungs have equal breath sounds bilaterally, clear to auscultation and percussion. No rales, rhonchi or wheezes noted. No increased work of breathing, no retractions or nasal flaring. Abdomen/GI: Soft, non-tender, with normal bowel sounds. No distension or tympany. No guarding or rebound. No evidence of tenderness throughout. Back: No spinal tenderness. No costovertebral tenderness. Full range of motion. Skin: Warm, dry with normal turgor. Normal color with no rashes, no lesions, and no evidence of cellulitis. Neuro: Awake and alert, GCS 15, oriented to person, place, time, and situation. 21:25 ENT: post nasal drip. Vital Signs: 21:16 BP 123 / 71; Pulse 89; Resp 22; Temp 98.3(TE); Pulse Ox 100% on R/A; Weight 47.63 kg; ld1 Height 5 ft. 0 in. (152.40 cm); Pain 7/10; 21:16 Body Mass Index 20.51 (47.63 kg, 152.40 cm) 1 MDM: 21:08 Patient medically screened. [facility] 22:30 Differential diagnosis: viral Infection, bronchitis, pneumonia. Data reviewed: vital [facility] signs, nurses notes, radiologic studies, plain films. Data interpreted: Pulse oximetry: is 100 %. Interpretation: normal. Counseling: I had a detailed discussion with the patient and/or guardian regarding: the historical points, exam findings, and any diagnostic results supporting the discharge/admit diagnosis, to return to the emergency department if symptoms worsen or persist or if there are any questions or concerns that arise at home. ED course: The patient remained hemodynamically stable throughout her ER visit. Explained to her that her chest x-ray was normal, and there were no acute findings on her exam. She was advised to quarantine for 5 days at home. She developed severe shortness of breath, severe chest pain, or any other concerning symptoms, she is to return to the ER for further eval.. 03/30 21:22 Order name: Chest Pa And Lat (2 Views) XRAY; Complete Time: 22:01 [facility] 05/09 21:22 Order name: EKG; Complete Time: 21:23 [facility] EC:25 Rate is 75 beats/min. Rhythm is regular. QRS Golden is Normal. UT interval is normal. T [facility] waves are Normal. No ST changes noted. Clinical impression: Normal ECG. Administered Medications: No medications were administered Disposition: 03/31 01:39 Co-signature as Attending Physician, Tomy Lomeli MD. rn Disposition Summary: 03/30/22 22:04 Discharge Ordered Location: Home [facility] Problem: new [facility] Symptoms: are unchanged [facility] Condition: Stable [facility] Diagnosis - SARS-associated coronavirus as the cause of diseases classified elsewhere [facility] Followup: [facility] - With: Private Physician - When: 5 - 6 days - Reason: Recheck today's complaints Discharge Instructions: - Discharge Summary Sheet [facility] - COVID-19 [facility] - COVID-19 Frequently Asked Questions [facility] Forms: - Medication Reconciliation Form [facility] - Thank You Letter [facility] - Antibiotic Education [facility] - Prescription Opioid Use [facility] Prescriptions: - Bromfed DM 2-30-10 mg/5 mL Oral syrup - take 10 milliliter by ORAL route every 4 hours; 240 milliliter; Refills: 0, [facility] Product Selection Permitted - ProAir HFA 90 mcg/actuation Inhalation HFA aerosol inhaler - inhale 2 puff by INHALATION route every 4-6 hours As needed; 1 Inhaler; [facility] Refills: 0, Product Selection Permitted Signatures: Dispatcher [employer] EDTomy Earl MD MD rn Dibbern, Lauren, RN RN ld1 Alaina Camara FNP ROAD WORKER [facility]
[2022-03-31 01:08] VITALS: BP 123/71; TEMP 98.3; O2SAT 100
--- NOTE | 2022-03-31 10:19 | EKG ---
Test Date: 2022-03-30 Test Time: 21:14:51 [employer] Consultant: FRANCISCO MEASUREMENT RESULTS: Intervals: Rate: 75 LA: 154 QRSD: 80 QT: 372 QTc: 415 [place]: P: 4 LA: 154 QRS: 84 T: 44 INTERPRETIVE STATEMENTS: Normal sinus rhythm Normal ECG Compared to ECG 02/24/2018 00:58:29 Sinus tachycardia no longer present ST (T wave) deviation no longer present Electronically Signed On 03-31-22 10:17:28 CDT by Antwon Montez
== END 2022-03-30 22:20 | disposition home or self-care (01) ==
LOC: ER 20:54
DX: U07.1 COVID-19 (principal); Z91.040 Latex allergy status; Z91.048 Other nonmedicinal substance allergy status
CPT/HCPCS: 71046; 93005; 99284

== ENCOUNTER 2023-07-22 17:19 | Emergency (ER) | payer SELFPAY ==
--- OUTSIDE RECORDS SUMMARY | 2023-07-22 17:24 | XMS REPORT | Continuity of Care Document ---
:1995 Author Organization [facility] t Address [address] [place] [address] Care Team Providers Name Role Phone Tammy Miller Primary Care Physician TAMMY NATARAJAN Attending Clinician Unavailable KIESHA RICO Attending Clinician Unavailable Visit, Jorge Nurse Attending Clinician Unavailable Kiesha Rico CNM Attending Clinician Doctor Unassigned, [place] Attending Clinician Unavailable BLAYNE POMPA Attending Clinician Unavailable Blayne Pompa MD Attending Clinician Unknown, Attending Attending Clinician Unavailable Lab, Jorge Attending Clinician Unavailable Mireya Juarez Attending Clinician MIREYA MENCHACA Attending Clinician Unavailable Shakira Watts Attending Clinician Lois Rosario Attending Clinician Stew Ramírez Attending Clinician STEW ADORNO Attending Clinician Unavailable QUYEN TOLBERT Attending Clinician Unavailable QUYEN TOLBERT Attending Clinician Unavailable CARLOS KINGSTON Attending Clinician Unavailable Payers Payer Name Policy Type Policy Number Effective Date Expiration Date Wang harrison Car-[id number] 2022 00:00:00 Problems Condition Condition Condition Status Onset Resolution Last Treating Co mments Source Name Details Category Date Date Treatment Clinician Date Disease Active Univers (spontaneo (spontaneo 4-11 it y of [place] vaginal [place] 00 [facility] Single Single Disease Active Univers live live 4-11 it y of 00:00: [place] 00 [facility] Branch Anemia, Anemia, Disease Active Univers 4-11 it y of 00:00: [place] 00 Medical Branch History of History of Disease Active U nivers depression depression 4-11 it y of with with 00:00: [place] suicidal suicidal 00 Medica l ideation ideation Branch 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 4-10 ity of phase of phase of 00:00: [place] labor labor 00 [facility] 39 weeks 39 weeks Disease Active Unive rs gestation gestation 4-10 ity of of of 00:00: [place] 00 [facility] Indication Indication Disease Active U nivers for care for care 4-10 ity of or or 00:00: [place] interventi interventi 00 Me dical on in on in Branch labor or labor or delivery-L delivery-L abor at abor at Term Term Late Late Disease Active 2017-11 Univers 2-11 ity of care care 00:00: [place] 00 Medical Branch Multiparit Multiparit Disease Active 2017-11 U nivers y y 2-11 ity of 00:00: [place] 00 [facility] Branch Supervisio Supervisio Disease Active 2014-11 U nivers n of high n of high 2-29 ity of risk risk 00:00: [place] , , 00 Me dical antepartum antepartum Br anch Anemia of Anemia of Disease Active 2014-11 Uni vers mother in mother in 2-03 ity of , , 00:[place] antepartum antepartum 00 Me dical Branch Allergies, Adverse Reactions, Alerts Allergy Allergy Status Severity Reaction(s) Onset Inactive Treating Comm ents Source Name Type Date Date Clinician Latex Drug Active Itching 2019-0 Univers Allergy 4-11 ity of 00:00: [place] [id number] Medical Branch LATEX DRUG Active Med ITCHING 2019-0 Univers INGREDI 4-11 ity of 00:00: [place] [address] Medical [place] Social History Social Habit Start Date Stop Date Quantity Comments Source Exposure to 2023-01-25 2023-02-04 [facility] sure [facility] SARS-CoV-2 00:00:00 09:53:00 [facility] (event) Branch Alcohol intake 2022-09-09 2022-09-09 Current University of 00:00:00 00:00:00 non-drinker of [facility] alcohol (finding) Branch Tobacco use and 2018-11-01 2018-11-01 Smokeless tobacco Un iversity of exposure 00:00:00 00:00:00 non-user [facility] History of 2018-07-02 Cigarette Smoker Universi ty of tobacco use 00:00:00 [facility] Sex Ass[birth year] At [birth year] Universit y of 00:00:00 00:00:00 [facility] Smoking Status Start Date Stop Date Source Ex-smoker 2018-11-01 00:00:00 2018-11-01 00:00:00 Universi ty of [facility] Medications Ordered Filled Start Stop Current Ordering Indication Dosage Frequency Signature Comments Components Source Medication Medication Date Date Medication? Clinician (SIG) Name Name eva 2021-11 Yes [id number] 5mL Take 5 mL Univers mine-pseudo 0-19 by mouth 4 it y of ephedrine-D 00:00: (four) [place] (BROMFED 00 times Medical DM) 2-30-10 daily as Bran ch mg/5 mL needed for syrup Congestion /Allergies . bromphenira 2021-11 Yes [id number] 5mL Take 5 mL Univers mine-pseudo 0-19 by mouth 4 it y of ephedrine-D 00:00: (four) [place] (BROMFED 00 times Medical DM) 2-30-10 daily as Bran ch mg/5 mL needed for syrup Congestion /Allergies . bromphenira 2021-11 Yes [id number] 5mL Take 5 mL Univers mine-pseudo 0-19 by mouth 4 it y of ephedrine-D 00:00[place] ([place] ([place] 00 times Medical DM) 2-30-10 daily as Bran ch mg/5 mL needed for syrup Congestion /Allergies . bromphenira 2021-11 Yes [id number] 5mL Take 5 mL Univers mine-pseudo 0-19 by mouth 4 it y of ephedrine-D 00:00: ([place] (BROMF[place] 00 times Medical DM) 2-30-10 daily as Bran ch mg/5 mL needed for syrup Congestion /Allergies . bromphenira 2021-11 Yes [id number] 5mL Take 5 mL Univers mine-pseudo 0-19 by mouth 4 it y of ephedrine-D 00:00: (four[place] (BROMF[place] 00 times Medical DM) 2-30-10 daily as Bran ch mg/5 mL needed for syrup Congestion /Allergies . nitrofurant 2021-11- No [id number] 100mg Take 1 Univers oin 100 mg 0-19 10-25 capsule by it y of capsule 00:00: 04:59 mouth 4 [place] 00 :00 (four) Medical times Branch daily for 5 days. nitrofurant 2021-11- No [id number] 100mg Take 1 Univers oin 100 mg 0-19 10-25 capsule by it y of capsule 00:00: 04:59 mouth 4 [place] 00 :00 (four) Medical times Branch daily for 5 days. Nitrofurant 2021- No [id number] 100mg Take 1 Univers oin&Nit. 5-19 05-30 capsule by ity of Macrocryst 00:00: 04:59 mouth 2 Epi as (MACROBID) 00 :00 (two) Medical 100 mg times Branch capsule daily for 10 days. docusate Yes [id number] 240mg Take 1 U nivers calcium 240 4-12 capsule by it y of mg capsule 00:00: mouth [place] 00 daily as Medical needed for Branch Constipati on. ibuprofen Yes [id number] 600mg Take 1 Univers 600 mg 4-12 tablet by ity of tablet 00:00: mouth [place] 00 every 6 Medical (six) Branch hours as needed for Pain (scale 1-3) or Pain (scale 4-6) (Pain). Take with food or milk. Iron Fum & 2019-0 Yes [id number] 1{capsu Take 1 Univers P-FA-Vit B 4-12 le} capsule by ity of & C No.9 00:00: mouth [place] (INTEGRA 00 daily. Medical PLUS) 125 Branch mg iron- 1 mg Cap SERTraline Yes [id number] 25mg Take 1 Univers 25 mg 4-12 tablet by ity of tablet 00:00: mouth [place] 00 daily. Medical Branch docusate Yes [id number] 240mg Take 1 U nivers calcium 240 4-12 capsule by it y of mg capsule 00:00: mouth once [place] 00 daily as Medical needed for Branch Constipati on. ibuprofen Yes [id number] 600mg Take 1 Univers 600 mg 4-12 tablet by ity of tablet 00:00: mouth [place] 00 every 6 Medical (six) Branch hours as needed for Pain (scale 1-3) or Pain (scale 4-6) (Pain). Take with food or milk. Iron Fum & Yes [id number] 1{capsu Take 1 Univers P-FA-Vit B 4-12 le} capsule by ity of & C No.9 00:00: mouth [place] (INTEGRA 00 daily. Medical PLUS) 125 Branch mg iron- 1 mg Cap SERTraline Yes [id number] 25mg Take 1 Univers 25 mg 4-12 tablet by ity of tablet 00:00: mouth [place] 00 daily. Medical Branch docusate Yes [id number] 240mg Take 1 U nivers calcium 240 4-12 capsule by it y of mg capsule 00:00: mouth once [place] 00 daily as Medical needed for Branch Constipati on. ibuprofen Yes [id number] 600mg Take 1 Univers 600 mg 4-12 tablet by ity of tablet 00:00: mouth [place] 00 every 6 Medical (six) Branch hours as needed for Pain (scale 1-3) or Pain (scale 4-6) (Pain). Take with food or milk. Iron Fum & Yes [id number] 1{capsu Take 1 Univers P-FA-Vit B 4-12 le} capsule by ity of & C No.9 00:00: mouth [place] (INTEGRA 00 daily. Medical PLUS) 125 Branch mg iron- 1 mg Cap SERTraline Yes [id number] 25mg Take 1 Univers 25 mg 4-12 tablet by ity of tablet 00:00: mouth [place] 00 daily. Medical Branch docusate Yes [id number] 240mg Take 1 U nivers calcium 240 4-12 capsule by it y of mg capsule 00:00: mouth once [place] 00 daily as Medical needed for Branch Constipati on. ibuprofen Yes [id number] 600mg Take 1 Univers 600 mg 4-12 tablet by ity of tablet 00:00: mouth [place] 00 every 6 Medical (six) Branch hours as needed for Pain (scale 1-3) or Pain (scale 4-6) (Pain). Take with food or milk. Iron Fum & Yes [id number] 1{capsu Take 1 Univers P-FA-Vit B 4-12 le} capsule by ity of & C No.9 00:00: mouth [place] (INTEGRA 00 daily. Medical PLUS) 125 Branch mg iron- 1 mg Cap SERTraline Yes [id number] 25mg Take 1 Univers 25 mg 4-12 tablet by ity of tablet 00:00: mouth [place] 00 daily. Medical Branch docusate Yes [id number] 240mg Take 1 U nivers calcium 240 4-12 capsule by it y of mg capsule 00:00: mouth once [place] 00 daily as Medical needed for Branch Constipati on. ibuprofen Yes [id number] 600mg Take 1 Univers 600 mg 4-12 tablet by ity of tablet 00:00: mouth [place] 00 every 6 Medical (six) Branch hours as needed for Pain (scale 1-3) or Pain (scale 4-6) (Pain). Take with food or milk. Iron Fum & Yes [id number] 1{capsu Take 1 Univers P-FA-Vit B 4-12 le} capsule by ity of & C No.9 00:00: mouth [place] (INTEGRA 00 daily. Medical PLUS) 125 Branch mg iron- 1 mg Cap SERTraline 2018- Yes [id number] 25mg Take 1 Univers 25 mg 4-12 tablet by ity of tablet 00:00: mouth [place] 00 daily. Medical Branch docusate Yes [id number] 240mg Take 1 U nivers calcium 240 4-12 capsule by it y of mg capsule 00:00: mouth once [place] 00 daily as Medical needed for Branch Constipati on. ibuprofen Yes [id number] 600mg Take 1 Univers 600 mg 4-12 tablet by ity of tablet 00:00: mouth [place] 00 every 6 Medical (six) Branch hours as needed for Pain (scale 1-3) or Pain (scale 4-6) (Pain). Take with food or milk. Iron Fum & Yes [id number] 1{capsu Take 1 Univers P-FA-Vit B 4-12 le} capsule by ity of & C No.9 00:00: mouth [place] (INTEGRA 00 daily. Medical PLUS) 125 Branch mg iron- 1 mg Cap SERTraline Yes [id number] 25mg Take 1 Univers 25 mg 4-12 tablet by ity of tablet 00:00: mouth [place] 00 daily. Medical Branch docusate Yes [id number] 240mg Take 1 U nivers calcium 240 4-12 capsule by it y of mg capsule 00:00: mouth once [place] 00 daily as Medical needed for Branch Constipati on. ibuprofen Yes [id number] 600mg Take 1 Univers 600 mg 4-12 tablet by ity of tablet 00:00: mouth [place] 00 every 6 Medical (six) Branch hours as needed for Pain (scale 1-3) or Pain (scale 4-6) (Pain). Take with food or milk. Iron Fum & Yes [id number] 1{capsu Take 1 Univers P-FA-Vit B 4-12 le} capsule by ity of & C No.9 00:00: mouth [place] (INTEGRA 00 daily. Medical PLUS) 125 Branch mg iron- 1 mg Cap SERTraline Yes [id number] 25mg Take 1 Univers 25 mg 4-12 tablet by ity of tablet 00:00: mouth [place] 00 daily. [facility] Immunizations Ordered Immunization Filled Immunization Date Status Commen ts Source Name Name TDAP 2018-12-19 Completed University of 00:00: [facility] TDAP 2018-12-19 Completed University of 00:00: [facility] TDAP 2018-12-19 Completed University of 00:00: [facility] TDAP 2018-12-19 Completed University of 00:00: [facility] TDAP 2018-12-19 Completed of 00:00: [facility] TDAP 2018-12-19 Completed University of 00:00:00 [facility] TDAP 2018-12-19 Completed University of 00:00:00 [facility] TDAP 2015-10-09 Completed University of 00:00: [facility] TDAP 2015-10-09 Completed University of 00:00: [facility] TDAP 2015-10-09 Completed University of 00:00: [facility] TDAP 2015-10-09 Completed University of 00:00: [facility] TDAP 2015-10-09 Completed University of 00:00: [facility] TDAP 2015-10-09 Completed University of 00:00:00 [facility] TDAP 2015-10-09 Completed University of 00:00:00 [facility] Influenza Virus 2015-08-14 Completed Universit y of Vaccine Quad IM 3+ 00:00:00 [facility] Influenza Virus 2015-08-14 Completed Universit y of Vaccine Quad IM 3+ 00:00:00 [facility] Influenza Virus 2015-08-14 Completed Universit y of Vaccine Quad IM 3+ 00:00:00 [facility] Influenza Virus 2015-08-14 Completed Universit y of Vaccine Quad IM 3+ 00:00:00 [facility] Influenza Virus 2015-08-14 Completed Universit y of Vaccine Quad IM 3+ 00:00:00 [facility] Influenza Virus 2015-08-14 Completed Universit y of Vaccine Quad IM 3+ 00:00:00 [facility] Influenza Virus 2015-08-14 Completed Universit y of Vaccine Quad IM 3+ 00:00:00 [facility] PPD (TB) 2015-05-15 Completed University of 00:00:00 [facility] PPD (TB) 2015-05-15 Completed University of 00:00:00 [facility] PPD (TB) 2015-05-15 Completed University of 00:00:00 [facility] PPD (TB) 2015-05-15 Completed University of 00:00:00 [facility] PPD (TB) 2015-05-15 Completed University of 00:00:00 [facility] PPD (TB) 2015-05-15 Completed University of 00:00:00 [facility] PPD (TB) 2015-05-15 Completed University of 00:00:00 [facility] Meningococcal 2011-02-06 Completed University of Vaccine 00:00:00 [facility] TDAP 2011-02-06 Completed University of 00:00:00 [facility] Varicella 2011-02-06 Completed University of (varivax)(chicken 00:00:00 [place] M edical pox) Branch Meningococcal 2011-02-06 Completed University of Vaccine 00:00:00 [facility] TDAP 2011-02-06 Completed University of 00:00:00 [facility] Varicella 2011-02-06 Completed University of (varivax)(chicken 00:00:00 [place] M edical pox) Branch Meningococcal 2011-02-06 Completed University of Vaccine 00:00:00 [facility] TDAP 2011-02-06 Completed University of 00:00:00 [facility] Varicella 2011-02-06 Completed University of (varivax)(chicken 00:00:00 [place] M edical pox) Branch Meningococcal 2011-02-06 Completed University of Vaccine 00:00:00 [facility] TDAP 2011-02-06 Completed University of 00:00:00 [facility] Varicella 2011-02-06 Completed University of (varivax)(chicken 00:00:00 [place] M edical pox) Branch Meningococcal 2011-02-06 Completed University of Vaccine 00:00:00 [facility] TDAP 2011-02-06 Completed University of 00:00:00 [facility] Varicella 2011-02-06 Completed University of (varivax)(chicken 00:00:00 [place] M edical pox) Branch Meningococcal 2011-02-06 Completed University of Vaccine 00:00:00 [facility] TDAP 2011-02-06 Completed University of 00:00:00 [facility] Varicella 2011-02-06 Completed University of (varivax)(chicken 00:00:00 [place] M edical pox) Branch Meningococcal 2011-02-06 Completed University of Vaccine 00:00:00 [facility] TDAP 2011-02-06 Completed University of 00:00:00 [facility] Varicella 2011-02-06 Completed University of (varivax)(chicken 00:00:00 [place] M edical pox) Branch Hep B, Adol or Pedi 2002-07-18 Completed Unive rsity of Dosage 00:00:00 [facility] Hep B, Adol or Pedi 2002-07-18 Completed Unive rsity of Dosage 00:00:00 [facility] Hep B, Adol or Pedi 2002-07-18 Completed Unive rsity of Dosage 00:00:00 [facility] Branch Hep B, Adol or Pedi 2002-07-18 Completed Unive rsity of Dosage 00:00:00 [place] [facility] Hep B, Adol or Pedi 2002-07-18 Completed Unive rsity of Dosage 00:00:00 [place] [facility] Hep B, Adol or Pedi 2002-07-18 Completed Unive rsity of Dosage 00:00:00 [facility] Branch Hep B, Adol or Pedi 2002-07-18 Completed Unive rsity of Dosage 00:00:00 [facility] Branch DTAP 2002-06-28 Completed University of 00:00:00 [facility] MMR 2002-06-28 Completed University of 00:00:00 [facility] Polio (IPV/OPV) 2002-06-28 Completed Universit y of 00:00:00 [facility] DTAP 2002-06-28 Completed University of 00:00:00 [facility] MMR 2002-06-28 Completed University of 00:00:00 [facility] Polio (IPV/OPV) 2002-06-28 Completed Universit y of 00:00:00 [facility] DTAP 2002-06-28 Completed University of 00:00:00 [facility] MMR 2002-06-28 Completed University of 00:00:00 [facility] Polio (IPV/OPV) 2002-06-28 Completed Universit y of 00:00:00 [facility] DTAP 2002-06-28 Completed University of 00:00:00 [facility] MMR 2002-06-28 Completed University of 00:00:00 [facility] Polio (IPV/OPV) 2002-06-28 Completed Universit y of 00:00:00 [facility] Branch DTAP 2002-06-28 Completed University of 00:00:00 [facility] MMR 2002-06-28 Completed University of 00:00:00 [facility] Branch Polio (IPV/OPV) 2002-06-28 Completed Universit y of 00:00:00 [facility] Branch DTAP 2002-06-28 Completed University of 00:00:00 [facility] MMR 2002-06-28 Completed University of 00:00:00 [facility] Polio (IPV/OPV) 2002-06-28 Completed Universit y of 00:00:00 [facility] Branch DTAP 2002-06-28 Completed University of 00:00:00 [facility] MMR 2002-06-28 Completed University of 00:00:00 [facility] Polio (IPV/OPV) 2002-06-28 Completed Universit y of 00:00:00 [facility] DTAP 1999-11-10 Completed University of 00:00:00 [facility] HIB 4 Dose Schedule 1999-11-10 Completed Unive rsity of 00:00:00 [facility] DTAP 1999-11-10 Completed University of 00:00:00 [facility] HIB 4 Dose Schedule 1999-11-10 Completed Unive rsity of 00:00:00 [facility] DTAP 1999-11-10 Completed University of 00:00:00 [facility] HIB 4 Dose Schedule 1999-11-10 Completed Unive rsity of 00:00:00 [facility] DTAP 1999-11-10 Completed University of 00:00:00 [facility] HIB 4 Dose Schedule 1999-11-10 Completed Unive rsity of 00:00:00 [facility] DTAP 1999-11-10 Completed University of 00:00:00 [facility] HIB 4 Dose Schedule 1999-11-10 Completed Unive rsity of 00:00:00 [facility] DTAP 1999-11-10 Completed University of 00:00:00 [facility] HIB 4 Dose Schedule 1999-11-10 Completed Unive rsity of 00:00:00 [facility] DTAP 1999-11-10 Completed University of 00:00:00 [facility] HIB 4 Dose Schedule 1999-11-10 Completed Unive rsity of 00:00:00 [facility] MMR 1999-06-04 Completed University of 00:00:00 [facility] Polio (IPV/OPV) 1999-06-04 Completed Universit y of 00:00:00 [facility] Varicella 1999-06-04 Completed University of (varivax)(chicken 00:00:00 [place] M edical pox) Branch MMR 1999-06-04 Completed University of 00:00:00 [facility] Polio (IPV/OPV) 1999-06-04 Completed Universit y of 00:00:00 [facility] Varicella 1999-06-04 Completed University of (varivax)(chicken 00:00:00 [place] M edical pox) Branch MMR 1999-06-04 Completed University of 00:00:00 [facility] Polio (IPV/OPV) 1999-06-04 Completed Universit y of 00:00:00 [facility] Varicella 1999-06-04 Completed University of (varivax)(chicken 00:00:00 [place] M edical pox) Branch MMR 1999-06-04 Completed University of 00:00:00 [facility] Polio (IPV/OPV) 1999-06-04 Completed Universit y of 00:00:00 [facility] Varicella 1999-06-04 Completed University of (varivax)(chicken 00:00:00 [place] M edical pox) Branch MMR 1999-06-04 Completed University of 00:00:00 [facility] Polio (IPV/OPV) 1999-06-04 Completed Universit y of 00:00:00 [facility] Varicella 1999-06-04 Completed University of (varivax)(chicken 00:00:00 [place] M edical pox) Branch MMR 1999-06-04 Completed University of 00:00:00 [facility] Polio (IPV/OPV) 1999-06-04 Completed Universit y of 00:00:00 [facility] Varicella 1999-06-04 Completed University of (varivax)(chicken 00:00:00 [place] M edical pox) Branch MMR 1999-06-04 Completed University of 00:00:00 [facility] Polio (IPV/OPV) 1999-06-04 Completed Universit y of 00:00:00 [facility] Varicella 1999-06-04 Completed University of (varivax)(chicken 00:00:00 [place] M edical pox) Branch DTAP 1998-05-21 Completed University of 00:00:00 [facility] HIB 4 Dose Schedule 1998-05-21 Completed Unive rsity of 00:00:00 [facility] Hep B, Adol or Pedi 1998-05-21 Completed Unive rsity of Dosage 00:00:00 [facility] DTAP 1998-05-21 Completed University of 00:00:00 [facility] HIB 4 Dose Schedule 1998-05-21 Completed Unive rsity of 00:00:00 [facility] Hep B, Adol or Pedi 1998-05-21 Completed Unive rsity of Dosage 00:00:00 [facility] DTAP 1998-05-21 Completed University of 00:00:00 [facility] HIB 4 Dose Schedule 1998-05-21 Completed Unive rsity of 00:00:00 [facility] Branch Hep B, Adol or Pedi 1998-05-21 Completed Unive rsity of Dosage 00:00:00 [facility] Branch DTAP 1998-05-21 Completed University of 00:00:00 [facility] HIB 4 Dose Schedule 1998-05-21 Completed Unive rsity of 00:00:00 [facility] Branch Hep B, Adol or Pedi 1998-05-21 Completed Unive rsity of Dosage 00:00:00 [facility] Branch DTAP 1998-05-21 Completed University of 00:00:00 [facility] HIB 4 Dose Schedule 1998-05-21 Completed Unive rsity of 00:00:00 [facility] Branch Hep B, Adol or Pedi 1998-05-21 Completed Unive rsity of Dosage 00:00:00 [facility] DTAP 1998-05-21 Completed University of 00:00:00 [facility] HIB 4 Dose Schedule 1998-05-21 Completed Unive rsity of 00:00:00 [facility] Branch Hep B, Adol or Pedi 1998-05-21 Completed Unive rsity of Dosage 00:00:00 [facility] DTAP 1998-05-21 Completed University of 00:00:00 [facility] HIB 4 Dose Schedule 1998-05-21 Completed Unive rsity of 00:00:00 [facility] Branch Hep B, Adol or Pedi 1998-05-21 Completed Unive rsity of Dosage 00:00:00 [facility] DTAP 1998-04-04 Completed University of 00:00:00 [facility] HIB 4 Dose Schedule 1998-04-04 Completed Unive rsity of 00:00:00 [facility] Polio (IPV/OPV) 1998-04-04 Completed Universit y of 00:00:00 [facility] DTAP 1998-04-04 Completed University of 00:00:00 [facility] HIB 4 Dose Schedule 1998-04-04 Completed Unive rsity of 00:00:00 [facility] Polio (IPV/OPV) 1998-04-04 Completed Universit y of 00:00:00 [facility] DTAP 1998-04-04 Completed University of 00:00:00 [facility] HIB 4 Dose Schedule 1998-04-04 Completed Unive rsity of 00:00:00 [facility] Polio (IPV/OPV) 1998-04-04 Completed Universit y of 00:00:00 [facility] Branch DTAP 1998-04-04 Completed University of 00:00:00 [facility] HIB 4 Dose Schedule 1998-04-04 Completed Unive rsity of 00:00:00 [place] [facility] Polio (IPV/OPV) 1998-04-04 Completed Universit y of 00:00:00 [facility] Branch DTAP 1998-04-04 Completed University of 00:00:00 [facility] HIB 4 Dose Schedule 1998-04-04 Completed Unive rsity of 00:00:00 [place] [facility] Polio (IPV/OPV) 1998-04-04 Completed Universit y of 00:00:00 [facility] Branch DTAP 1998-04-04 Completed University of 00:00:00 [facility] HIB 4 Dose Schedule 1998-04-04 Completed Unive rsity of 00:00:00 [facility] Polio (IPV/OPV) 1998-04-04 Completed Universit y of 00:00:00 [facility] DTAP 1998-04-04 Completed [facility] of 00:00:00 [facility] HIB 4 Dose Schedule 1998-04-04 Completed Unive rsity of 00:00:00 [facility] Polio (IPV/OPV) 1998-04-04 Completed Universit y of 00:00:00 [facility] DTAP 1998-01-31 Completed [facility] of 00:00:00 [facility] HIB 4 Dose Schedule 1998-01-31 Completed Unive rsity of 00:00:00 [facility] Hep B, Adol or Pedi 1998-01-31 Completed Unive rsity of Dosage 00:00:00 [facility] Polio (IPV/OPV) 1998-01-31 Completed Universit y of 00:00:00 [facility] DTAP 1998-01-31 Completed [facility] of 00:00:00 [facility] HIB 4 Dose Schedule 1998-01-31 Completed Unive rsity of 00:00:00 [facility] Hep B, Adol or Pedi 1998-01-31 Completed Unive rsity of Dosage 00:00:00 [facility] Polio (IPV/OPV) 1998-01-31 Completed Universit y of 00:00:00 [facility] DTAP 1998-01-31 Completed [facility] of 00:00:00 [facility] HIB 4 Dose Schedule 1998-01-31 Completed Unive rsity of 00:00:00 [facility] Hep B, Adol or Pedi 1998-01-31 Completed Unive rsity of Dosage 00:00:00 [facility] Polio (IPV/OPV) 1998-01-31 Completed Universit y of 00:00:00 [facility] DTAP 1998-01-31 Completed [facility] of 00:00:00 [facility] HIB 4 Dose Schedule 1998-01-31 Completed Unive rsity of 00:00:00 [facility] Hep B, Adol or Pedi 1998-01-31 Completed Unive rsity of Dosage 00:00:00 [facility] Polio (IPV/OPV) 1998-01-31 Completed [facility]it [facility] of 00:00:00 [facility] DTAP 1998-01-31 Completed [facility] of 00:00:00 [facility] HIB 4 Dose Schedule 1998-01-31 Completed Unive rsity of 00:00:00 [facility] Hep B, Adol or Pedi 1998-01-31 Completed Unive rsity of Dosage 00:00:00 [facility] Polio (IPV/OPV) 1998-01-31 Completed [facility]it [facility] of 00:00:00 [facility] DTAP 1998-01-31 Completed [facility] of 00:00:00 [facility] HIB 4 Dose Schedule 1998-01-31 Completed Unive rsity of 00:00:00 [facility] Hep B, Adol or Pedi 1998-01-31 Completed Unive rsity of Dosage 00:00:00 [facility] Polio (IPV/OPV) 1998-01-31 Completed Universit y of 00:00:00 [facility] DTAP 1998-01-31 Completed [facility] of 00:00:00 [facility] HIB 4 Dose Schedule 1998-01-31 Completed Unive rsity of 00:00:00 [facility] Hep B, Adol or Pedi 1998-01-31 Completed Unive rsity of Dosage 00:00:00 [facility] Polio (IPV/OPV) 1998-01-31 Completed Universit y of 00:00:00 [facility] Vital Signs Vital Name Observation Time Observation Value Comments Source Systolic blood 2023-02-04 14:54:00 126 mm[Hg] Univer sity of pressure [facility] Diastolic blood 2023-02-04 14:54:00 83 mm[Hg] Unive rsity of pressure [facility] Heart rate 2023-02-04 14:54:00 90 /min Universi ty of [facility] Body temperature 2023-02-04 14:54:00 36.17 Jenny Univ ersity of [facility] Respiratory rate 2023-02-04 14:54:00 17 /min Univ ersity of [facility] Body height 2023-02-04 14:54:00 152.4 cm Universi ty of [facility] Body weight 2023-02-04 14:54:00 51.592 kg Universi ty of [facility] BMI 2023-02-04 14:54:00 22.21 kg/m2 Universi ty of [facility] Systolic blood 2022-09-09 18:59:00 125 mm[Hg] Univer sity of [facility] Diastolic blood 2022-09-09 18:59:00 70 mm[facility]Hg[facility] Heart rate 2022-09-09 18:59:00 91 /min Universi ty of [facility] Body temperature 2022-09-09 18:59:00 37.06 Jenny [facility] ersity of [facility] Respiratory rate 2022-09-09 18:59:00 16 /min Univ ersity of [facility] Body height 2022-09-09 18:59:00 152.4 cm Universi ty of [facility] Body weight 2022-09-09 18:59:00 49.306 kg Universi ty of [facility] BMI 2022-09-09 18:59:00 21.23 kg/m2 Universi ty of [facility] Oxygen saturation in 2022-09-09 18:59:00 97 [facility] by [facility] Pulse oximetry Branch Procedures Procedure Date / Time Performing Clinician Source Performed POCT TEST 2023-02-04 15:19:00 Tammy Natarajan [facility] ASSIGNMENT OF BENEFITS 2023-02-04 14:23:51 Doctor Unassigned, Un [facility] POCT TEST 2022-09-09 19:32:00 [facility] POCT MOLECULAR FLU 2022-09-09 19:12:00 Unknown, Attending Pk hernandez [facility] POCT URINALYSIS 2022-09-09 19:03:00 Lois Tavarez [facility] POCT MOLECULAR STREP 2022-09-09 19:03:00 Unknown, Attending Tristin gill [facility] STATEMENT OF PATIENT 2022-09-09 05:01:00 Doctor Unassigned, [facility] FINANCIAL RESPONSIBILITY [facility] Encounters Start End Encounter Admission Attending Care Care Encounter Source Date/Time Date/Time Type Type Clinicians Facility Department ID 2023-02-04 2023-02-04 [facility] [id number] Univers 09:30:00 10:03:07 KIESHA lafleru [facility] 2023-02-04 2023-02-04 [facility] 1.2 .840.114 [id number] Univers 09:30:00 10:03:07 Visit Kiesha Rico [employer]ONT [employer] SUPERVIS[employer] [facility]2.7.2.686 Epi as MATERNAL [id number] Med ical & CHILD [address] [place] [address] 2023-02-04 2023-02-04 Outpatient R ALL [facility] [id number] Univers 08:45:00 08:45:00 TAMMY lafleur o f [facility] 2023-02-04 2023-02-04 Orders Doctor GONZALEZ 1.2.840.114 [id number] Univers 00:00:00 00:00:00 Only Unassigned, FERNANDA 350.1.13.10 ity of [facility] 4.2.7.2.686 Epi as [id number] [address] 2022-09-09 2022-09-09 Outpatient R PEÑA [facility] [id number] Univers 13:40:00 14:05:33 [facility] 2022-09-09 2022-09-09 Urgent Blayne Pompa [facility] 1.2.840.114 [id number] Univers 13:40:00 14:05:33 Care Unknown, Attending [facility] 4.2.7.2.686 Epi as VERNON?BLEA [id number] [address] MEDICAL OFFICE [facility] 2022-09-09 2022-09-09 Letter Peña [facility] 1.2.840.114 [id number] Univers 00:00:00 00:00:00 (Out) [facility] 350.1.13.10 it y of [place] 4.2.7.2.686 Epi as VERNON?BLEA [id number] [address] MEDICAL OFFICE [facility] 2022-09-09 2022-09-09 Orders Doctor CARLOS 1.2.840.114 [id number] Univers 00:00:00 00:00:00 Only Unassigned, FERNANDA 350.1.13.10 ity of [facility] 4.2.7.2.686 Epi as [id number] [address] 2022-08-03 2022-08-03 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 114 [id number] Univers 13:15:00 13:26:24 Visit Mireya Menchaca [employer] LINE SUPERVISOR 350.1.13.10 ity of [facility] 4.2.7.2.686 Epi as MATERNAL [id number] Med ical & CHILD [address] [place] [address] 2022-08-03 2022-08-03 Outpatient R NIKOLAI [facility] [id number] Univers 13:15:00 13:15:00 MIREYA lafleur o melissa [facility] 2022-07-20 2022-07-20 Outpatient R [facility] [id number] Univers 13:15:00 13:15:00 ity of [facility] 2022-07-13 2022-07-13 [facility] [id number] Univers 10:30:00 10:30:00 MIREYA lafleur o f [facility] 2022-04-13 2022-04-13 Telephone Nikolai [facility] [id number] Univers 00:00:00 00:00:00 Mireya Fuenets [employer] SUPERVISOR 350.1.13.10 ity of [facility] 4.2.7.2.686 Epi as MATERNAL [id number] Med ical & CHILD 107 [facility] 2022-04-13 2022-04-13 Telephone Nikolai [facility] 1.2.274.111 [id number] Univers 00:00:00 00:00:00 Roshunda R FRONT LINE SUPERVISOR 350.1.13.10 ity of [facility] 4.2.7.2.686 Epi as MATERNAL [phone] [facility] ical & CHILD [address] [place] [address] 2022-04-13 2022-04-13 Telephone Nikolai [facility] [id number] Univers 00:00:00 00:00:00 Roshunda R FRONT LINE SUPERVISOR 350.1.13.10 ity of REG[facility]AL 4.2.7.2.686 Epi as MATERNAL [id number] [facility] ical & CHILD [address] [place] [address] 2022-04-10 2022-04-10 Guanaco Menchaca [facility] [id number] Univers 00:00:00 00:00:00 Roshunda R FRONT LINE SUPERVISOR 350.1.13.10 ity of REGIONAL 4.2.7.2.686 Epi as MATERNAL [phone] [facility] ical & CHILD [address] [place] [address] 2022-04-10 2022-04-10 [place] [facility] 1.2.064.218 [id number] Univers 00:00:00 00:00:00 Roshunda R FRONT LINE SUPERVISOR 350.1.13.10 ity of REGIONAL 4.2.7.2.686 Epi as MATERNAL [id number] [facility] ical & CHILD [address] [place] [address] 2022-04-10 2022-04-10 [place] [facility] 1.2.065.991 [id number] Univers 00:00:00 00:00:00 Roshunda R FRONT LINE SUPERVISOR 350.1.13.10 ity of REGIONAL 4.2.7.2.686 Epi as MATERNAL [id number] [facility] & CHILD [address] [place] [address] 2022-04-10 2022-04-10 [place] Menchaca, [facility] [id number] Univers 00:00:00 00:00:00 Roshunda R FRONT LINE SUPERVISOR 350.1.13.10 ity of [facility] 4.2.7.2.686 Epi as MATERNAL [id number] [facility] & CHILD [address] [place] [address] 2022-04-09 2022-04-09 Office [facility] 1.2.840.114 [id number] Univers 13:00:00 13:48:17 Visit [facility] R FRONT LINE SUPERVISOR 350.1.13.10 ity of [facility] 4.2.7.2.686 Epi as MATERNAL [id number] [facility] & CHILD [address] [place] [address] 2022-04-09 2022-04-09 Outpatient Alfredo MENCHACA [facility] [id number] Univers 13:00:00 13:48:17 MIREYA rendon [facility] 2022-04-09 2022-04-09 Outpatient Alfredo MENCHACA [facility] [id number] Univers 13:00:00 13:00:00 [facility] 2022-04-09 2022-04-09 Outpatient Alfredo MENCHACA [facility] [id number] Univers 12:30:00 12:30:00 [facility] lafleur o [facility] 2022-03-01 2022-03-01 [facility] 1.2.840.114 [id number] Univers 00:00:00 00:00:[address] [facility] 350.1.13.10 ity of [place] 4.2.7.2.686 Epi as VERNON?BLEA [id number] [address] MEDICAL OFFICE [facility] 2022-03-01 2022-03-01 Telephone [facility] 1.2.840.114 [id number] Univers 00:00:00 00:00:00 [facility] 350.1.13.10 i ty of [place] 4.2.7.2.686 Epi as VERNON?BLEA [id number] [address] OFFICE [facility] 2022-02-27 2022-02-27 Urgent [facility] 1.2.840. 114 [id number] Univers 18:20:00 18:40:00 Care Stew Adorno [facility] 350.1.13.10 ity of [place] 4.2.7.2.686 Epi as VERNON?BLEA [id number] T[place] lauri [address] MEDICAL OFFICE BUILDING 2022-02-27 2022-02-27 Outpatient R TELLY [facility] [id number] Univers 18:20:00 18:20:00 [facility] 2022-02-27 2022-02-27 Outpatient R TOMASZ [facility] B [id number] Univers 15:30:00 15:30:00 [facility] 2022-02-27 2022-02-27 Orders Doctor CARLOS 1.2.840.114 [id number] Univers 00:00:00 00:00:00 Only Unassigned, FERNANDA 350.1.13.10 ity of [facility] 4.2.7.2.686 Epi as [id number] [address] 2022-02-07 2022-02-07 Out[facility] [id number] Univers 12:40:00 14:18:08 [facility] Results Test Description Test Time Test Comments Results Result Comments Source POCT TEST 2023-02-04 15:19:00 Test Item Value Reference Range Interpretation Comme nts POCT PREG (test code = 1605) Negative On board controls acceptable with C Line (test code = 3574) Yes POCT PREG LOT # (test code = 3575) POCT PREG TEST DATE (test code = 3576) [id number] 19:32:00 Test Item Value Reference Range Interpretation Comments POCT PREG (test code Negative = 1605) On board controls Yes acceptable with C Line (test code = 3574) POCT PREG LOT # (test code = 3575) POCT PREG TEST DATE (test code = 3576) MARC (test code = MARC) accurate development and interpretation of all internal controls [facility] MOLECULAR [id number] 19:24:22 Test Item Value Reference Range Interpretation Comments POCT Molecular FluA (test code = Negative Negative 69989-4) POCT Molecular FluB (test code = Negative Negative 20140-7) Lab Interpretation (test code = Normal 11232-1) [facility] [id number] 19:12:39 Test Item Value Reference Range Interpretation Comments POCT Molecular Strep (test code = Negative Negative 72805-5) Lab Interpretation (test code = Normal 34850-5) [facility] URINALYSIS W SPECIFIC [id number] 19:04:00 Test Item Value Reference Range Interpretation Comments POCT U SP GRAV 1.025 mg/dl 1.005-1.025 (test code = 3255) POCT PH U (test 5.0 mg/dl 5-8 code = 3254) POCT U LEUK EST 1+ Negative - Negative (test code = 3263) POCT U NIT (test negative Negative - Negative code = 3262) POCT U PROT (test trace Negative - Negative code = 3259) POCT U GLU (test normal Negative - Negative code = 3256) POCT U KETONE 2+ Negative - Negative (test code = 3258) POCT U UROBILI normal 0.2-1 (test code = 3260) POCT U BILI (test 1+ Negative - Negative code = 3261) POCT U BLD (test about 50 Negative - Negative code = 3257) POCT U COLOR (test dark yellow code = 3266) POCT U APPEAR clear (test code = 3267) MARC (test code = accurate development and MARC) interpretation of all internal controls [facility]
[2023-07-22] MEDS ORDERED: ONDANSETRON 4 MG/2 ML VIAL ONE (19:35)
[2023-07-22] MEDS ORDERED: NA CHLORIDE 0.9% 1,000 ML ONE (19:35)
[2023-07-22 19:55] LABS: Absolute Lymphocytes (CBC) 1.8 K/uL (0.7-4.9); Hematocrit 37.3 % (36.0-45.0); Lymphocytes % 25.3 % (15.3-44.8); MCV 95.3 fL (80-100); Platelets 381 thou/uL (152-406); RBC Red Blood Cell Count 3.91 M/uL (3.86-4.86)
[2023-07-22 20:05] LABS: Potassium 3.3 mEq/L (3.5-5.1)
[2023-07-22 20:05] LABS: SARS-CoV-2 Antigen Rapid Res Negative (Negative)
[2023-07-22 20:06] LABS: Albumin 4.3 g/dL (3.4-5.0); Bilirubin Total 0.5 mg/dL (0.2-1.0); Protein, Total 8.3 g/dL (6.4-8.2)
[2023-07-22 20:35] LABS: Specific Gravity 1.008 (1.005-1.030)
[2023-07-22 20:40] LABS: Specific Gravity 1.008 (1.005-1.030); Urine Bacteria None Seen /HPF (<20); Urine Bilirubin NEGATIVE (Negative); Urine Blood Negative (Negative); Urine Clarity Extremely Turbid (Clear); Urine Color Colorless (Yellow); Urine Glucose NEGATIVE (Negative); Urine Mucus Slight /HPF (None Seen); Urine Protein NEGATIVE (Negative); Urine RBC <5 /HPF (None Seen); Urine Urobilinogen Normal (Normal)
--- NOTE | 2023-07-22 20:45 | EDPHYS ---
Physician Documentation [facility] Name: Blank Armenta Age: 27 yrs Sex: Female : 1995 Arrival Date: 07/22/2023 Time: 17:19 Bed 17 Private MD: ED Physician Obi Moulton HPI: 07/22 18:34 This 27 yrs old Female presents to ER via Ambulatory with complaints of sb4 General Weakness, Dizziness. 20:47 patient reports feeling very run down and weak for 24 hours now. she endorses nausea sb4 and vomiting. denies any sick contacts. denies abdominal pain, fever, chest pain. does endorse some upper respiratory symptoms. denies any alleviating or aggravating factors. 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 - Social history:: Smoking status: Patient denies any tobacco usage or history of. ROS: 20:47 Constitutional: Negative for fever, chills, and weight loss. sb4 20:47 Abdomen/GI: Positive for nausea and vomiting. 20:47 Neuro: Positive for dizziness, weakness. 20:47 All other systems are negative. Exam: 20:47 Head/Face: Normocephalic, atraumatic. Eyes: Extra-ocular motions intact. Periorbital sb4 areas with no swelling, redness, or edema. ENT: Mucous membranes moist. Cardiovascular: Regular rate and rhythm with a normal S1 and S2. Respiratory: Lungs have equal breath sounds bilaterally, clear to auscultation and percussion. No rales, rhonchi or wheezes noted. No increased work of breathing, no retractions or nasal flaring. Abdomen/GI: Soft, non-tender, no distension. Skin: Warm, dry with normal turgor. Normal color with no rashes, no lesions, and no evidence of cellulitis. MS/ Extremity: Pulses equal, no cyanosis. Neurovascular intact. Full, normal range of motion. Neuro: Awake and alert, GCS 15, oriented to person, place, time, and situation. Cranial nerves II-XII grossly intact. Motor strength 5/5 in all extremities. Sensory grossly intact. Cerebellar exam normal. Normal gait. 20:47 Constitutional: The patient appears alert, awake, uncomfortable. Vital Signs: 17:52 BP 126 / 76; Pulse 89; Resp 19; Temp 98.8; Pulse Ox 100% ; Weight 50.8 kg; ap3 19:25 BP 118 / 83; Pulse 83; Resp 18; Pulse Ox 98% on R/A; nj1 20:20 BP 110 / 72; Pulse 66; Resp 16; Pulse Ox 100% ; nj1 21:00 BP 117 / 75; Pulse 62; Resp 16; Pulse Ox 100% ; nj1 MDM: 17:42 Patient medically screened. sb4 20:47 Differential diagnosis: viral Infection, bacterial infection, URI, bronchitis, UTI, sb4 gastroenteritis. Data reviewed: vital signs, nurses notes, lab test result(s), and as a result, I will discharge patient. Counseling: I had a detailed discussion with the patient and/or guardian regarding the historical points, exam findings, and any diagnostic results supporting the discharge/admit diagnosis, lab results, to return to the emergency department if symptoms worsen or persist or if there are any questions or concerns that arise at home. 07/22 17:57 Order name: CBC with Diff; Complete Time: 20:06 sb4 07/22 17:57 Order name: CMP; Complete Time: 20:06 sb4 07/22 17:57 Order name: Lipase; Complete Time: 20:06 sb4 07/22 17:57 Order name: Test, Urine; Complete Time: 20:38 sb4 07/22 17:57 Order name: Urinalysis w/ reflexes; Complete Time: 20:42 sb4 07/22 17:57 Order name: SARS RAPID; Complete Time: 20:06 sb4 07/22 17:57 Order name: Flu; Complete Time: 20:18 sb4 07/22 17:57 Order name: IV Saline Lock; Complete Time: 19:51 sb4 07/22 17:57 Order name: Labs collected and sent; Complete Time: 19:51 sb4 Administered Medications: 19:30 Drug: NS 0.9% IV 1000 ml Route: IV; Rate: 1 bolus; Site: right antecubital; nj1 21:00 Follow up: Response: No adverse reaction; IV Status: Completed infusion; IV Intake: nj1 1000ml 19:30 Drug: Ondansetron IVP 4 mg Route: IVP; Site: right antecubital; nj1 20:38 Follow up: Response: No adverse reaction nj1 Disposition: 18:38 Co-signature as Attending Physician, Obi Moulton DO I was immediately available on-site ms3 in the Emergency Department for consultation in the care of the patient. Disposition Summary: 07/22/23 20:44 Discharge Ordered Location: Home sb4 Problem: new sb4 Symptoms: have improved sb4 Condition: Stable sb4 Diagnosis - Noninfective gastroenteritis and colitis, unspecified sb4 Followup: sb4 - With: Private Physician - When: As needed - Reason: Recheck today's complaints, Continuance of care, Re-evaluation by your physician Discharge Instructions: - Discharge Summary Sheet sb4 - Viral Gastroenteritis, Adult sb4 Forms: - Medication Reconciliation Form sb4 - Thank You Letter sb4 - Antibiotic Education sb4 - Prescription Opioid Use sb4 - Patient Portal Instructions sb4 - Leadership Thank You Letter sb4 Prescriptions: - Zofran 4 mg Oral Tablet - take 1 tablet by ORAL route every 12 hours As needed; 20 tablet; Refills: 0, sb4 Product Selection Permitted Signatures: Dispatcher [employer] Alisha Marte, RN RN ap3 Obi Moulton DO DO ms3 Fabiola Fernandez PA-C PA-C sb4 Faiza Meehan RN RN nj1
--- NOTE | 2023-07-22 20:45 | ER ---
Nurse's Notes [facility] Name: Blank Armenta Age: 27 yrs Sex: Female : 1995 Arrival Date: 07/22/2023 Time: 17:19 Bed 17 Private MD: Diagnosis: Noninfective gastroenteritis and colitis, unspecified Presentation: 07/22 17:52 Chief complaint: Patient states: she has been having nausea, vomiting, and feeling ap3 generally weak since yesterday 07/21/23. Coronavirus screen: Client presents with at least one sign or symptom that may indicate coronavirus-19. Ebola Screen: No symptoms or risks identified at this time. Initial Sepsis Screen: Does the patient meet any 2 criteria? No. Patient's initial sepsis screen is negative. Does the patient have a suspected source of infection? Yes: Acute abdominal pain. Risk Assessment: Do you want to hurt yourself or someone else? Patient reports no desire to harm self or others. Onset of symptoms was July 21, 2023. 17:52 Method Of Arrival: Ambulatory ap3 17:52 Acuity: TEREZA 3 ap3 Triage Assessment: 17:53 General: Appears ill, Behavior is calm, cooperative, appropriate for age. General: ap3 Reports chills for feeling ill for fatigue for. Pain: Complains of pain in abdomen and throat. EENT: Reports pain when swallowing. Neuro: Level of Consciousness is awake, alert, obeys commands, Oriented to person, place, time, situation, Appropriate for age. Cardiovascular: Patient's skin is warm and dry. Respiratory: Airway is patent Respiratory effort is even, unlabored, Respiratory pattern is regular, symmetrical. GI: Reports lower abdominal pain, upper abdominal pain, nausea, vomiting. RESEARCHER: 17:54 LMP 07/16/2023 ap3 Historical: - Allergies: 17:53 Latex, Natural Rubber; ap3 - PMHx: 17:53 Anemia; Anxiety; Depression; insomnia; ap3 - Immunization history:: Client reports receiving the 2nd dose of the Covid vaccine. - Social history:: Smoking status: Patient denies any tobacco usage or history of. Screenin:54 [facility] ED Fall Risk Assessment (Adult) History of falling in the last 3 months, ap3 including since admission No falls in past 3 months (0 pts). Abuse screen: Denies threats or abuse. Nutritional screening: No deficits noted. Tuberculosis screening: No symptoms or risk factors identified. Assessment: 19:15 General: Appears in no apparent distress. uncomfortable, Behavior is calm, cooperative, nj1 appropriate for age. 19:15 Pain: Complains of pain in generalized. Neuro: Level of Consciousness is awake, alert, nj1 obeys commands, Oriented to person, place, time, situation. Neuro: Reports weakness. Cardiovascular: Patient's skin is warm and dry. Respiratory: Airway is patent Respiratory effort is even, unlabored. 19:15 GI: Reports nausea. nj1 20:00 Reassessment: Patient appears in no apparent distress at this time. Patient and/or nj1 family updated on plan of care and expected duration. Pain level reassessed. Patient is alert, oriented x 3, equal unlabored respirations, skin warm/dry/pink. Patient denies pain at this time. 21:00 Reassessment: Patient appears in no apparent distress at this time. Patient and/or nj1 family updated on plan of care and expected duration. Pain level reassessed. Patient is alert, oriented x 3, equal unlabored respirations, skin warm/dry/pink. Patient denies pain at this time. Patient states symptoms have improved. Vital Signs: 17:52 BP 126 / 76; Pulse 89; Resp 19; Temp 98.8; Pulse Ox 100% ; Weight 50.8 kg; ap3 19:25 BP 118 / 83; Pulse 83; Resp 18; Pulse Ox 98% on R/A; nj1 20:20 BP 110 / 72; Pulse 66; Resp 16; Pulse Ox 100% ; nj1 21:00 BP 117 / 75; Pulse 62; Resp 16; Pulse Ox 100% ; nj1 ED Course: 17:20 Patient arrived in ED. ts1 17:42 Fabiola Fernandez PA-C is PHCP. sb4 17:42 Obi Moulton DO is Attending Physician. sb4 17:53 Triage completed. ap3 17:54 Arm band placed on right wrist. ap3 19:15 Patient has correct armband on for positive identification. Bed in low position. Call nj1 light in reach. 19:15 Provided Education on: fall precautions, call light. nj1 19:20 Inserted saline lock: 22 gauge in right antecubital area, using aseptic technique. nj1 Blood collected. 19:21 Faiza Meehan, RN is Primary Nurse. nj1 21:00 No provider procedures requiring assistance completed. IV discontinued, intact, nj1 bleeding controlled. Administered Medications: 19:30 Drug: NS 0.9% IV 1000 ml Route: IV; Rate: 1 bolus; Site: right antecubital; nj1 21:00 Follow up: Response: No adverse reaction; IV Status: Completed infusion; IV Intake: nj1 1000ml 19:30 Drug: Ondansetron IVP 4 mg Route: IVP; Site: right antecubital; nj1 20:38 Follow up: Response: No adverse reaction nj1 Medication: 17:54 VIS not applicable for this client. ap3 Intake: 21:00 IV: 1000ml; Total: 1000ml. nj1 Outcome: 20:44 Discharge ordered by . sb4 21:00 Discharged to home ambulatory. nj1 21:00 Condition: stable 21:00 Discharge instructions given to patient, Instructed on discharge instructions, follow up and referral plans. medication usage, Demonstrated understanding of instructions, follow-up care, medications, Prescriptions given X 1. 21:12 Patient left the ED. nj Signatures: Alisha Archer, RN RN ap3 Fabiola Fernandez, PA-C PA-C sb4 Faiza Meehan RN RN nj1 Nathalia Lopes PAS PAS ts1 Corrections: (The following items were deleted from the chart) 19:51 19:20 NS 0.9% IV 1000 ml IV at 1 bolus in right antecubital [place] [id number] 19:51 19:20 Ondansetron IVP 4 mg IVP in right antecubital [place] [address] 19:53 19:15 Neuro: Reports dizziness, weakness [place] [id number]
[2023-07-22 22:13] VITALS: TEMP 98.8
[2023-07-22 22:14] VITALS: O2SAT 100
[2023-07-22 22:15] VITALS: BP 117/75
== END 2023-07-22 21:12 | disposition home or self-care (01) ==
LOC: ER 17:19
DX: K52.9 Noninfective gastroenteritis and colitis, unspecified (principal); Z20.822 Contact with and (suspected) exposure to COVID-19
CPT/HCPCS: 36415; 80053; 81001; 81025; 83690; 85025; 87804; 87811; 96361; 96374; 99284; J2405; J7030

== ENCOUNTER 2024-06-28 14:43 | Emergency (ER) | payer SELFPAY ==
--- NOTE | 2024-06-28 15:22 | RAD REPORT ---
EXAM DESCRIPTION: RAD - Forearm Left - 06/28/2024 3:14 pm CLINICAL HISTORY: PAIN COMPARISON: No comparisons FINDINGS/IMPRESSION: No acute fracture. No malalignment. No significant focal degenerative changes.
--- NOTE | 2024-06-28 15:23 | RAD REPORT ---
EXAM DESCRIPTION: CT - Head Brain Wo Cont - 06/28/2024 3:08 pm CLINICAL HISTORY: Pain;Trauma COMPARISON: No comparisons TECHNIQUE: All CT scans are performed using dose optimization technique as appropriate and may inclu de automated exposure control or mA/KV adjustment according to patient size. FINDINGS: No intracranial hemorrhage, hydrocephalus or extra-axial fluid collection.No areas of brai n edema or evidence of midline shift. The paranasal sinuses and mastoids are clear. The calvarium is intact. IMPRESSION: No acute intracranial abnormality.
--- NOTE | 2024-06-28 16:10 | ER ---
Nurse's Notes [facility] Name: Blank Armenta Age: 28 yrs Sex: Female : 1995 Arrival Date: 06/28/2024 Time: 14:43 Bed 17 Private MD: Diagnosis: Unspecified injury of head, initial encounter;Pain in left forearm Presentation: 06/28 14:57 Chief complaint: Patient states: Carrying a door and fell off porch. Pt complaining of cm10 headache and left forearm pain. Coronavirus screen: Client denies travel out of the [place] in the last 14 days. At this time, the client does not indicate any symptoms associated with coronavirus-19. Ebola Screen: Patient denies travel to an Ebola-affected area in the 21 days before illness onset. No symptoms or risks identified at this time. Initial Sepsis Screen: Does the patient meet any 2 criteria? No. Patient's initial sepsis screen is negative. Does the patient have a suspected source of infection? No. Patient's initial sepsis screen is negative. Risk Assessment: Do you want to hurt yourself or someone else? Patient reports no desire to harm self or others. Onset of symptoms was June 28, 2024. 14:57 Method Of Arrival: Wheelchair cm10 14:57 Acuity: TEREZA 3 cm10 Triage Assessment: 14:58 General: Appears in no apparent distress. comfortable, Behavior is calm, cooperative. cm10 [facility] PHYSICIAN: 16:36 3, Full Term 1, Premature 0, 2, Living 1, LMP 06/10/2024, kj2 unknown Historical: - Allergies: 14:58 Latex; cm10 14:58 Pineapple; cm10 - PMHx: 14:58 Anemia; Anxiety; Depression; insomnia; cm10 - Immunization history:: Adult Immunizations up to date. - Infectious Disease History:: Denies. - Social history:: Smoking status: Patient denies any tobacco usage or history of. Screenin:34 [facility] ED Fall Risk Assessment (Adult) History of falling in the last 3 months, kj2 including since admission Yes- single mechanical fall (1 pt) Confusion or Disorientation No (0 pts) Intoxicated or Sedated No (0 pts) Impaired Gait No (0 pts) Mobility Assist Device Used No (0 pt) Altered Elimination No (0 pt) Score/Fall Risk Level 0 - 2 = Low Risk Maintained a safe environment, Educated pt \T\ family on fall prevention, incl call for assistance when getting out of bed, Hourly rounding (assess needs \T\ fall precautionary measures) done. Abuse screen: Denies threats or abuse. Denies injuries from another. Nutritional screening: No deficits noted. Tuberculosis screening: No symptoms or risk factors identified. Assessment: 15:32 General: Appears uncomfortable, Behavior is calm, cooperative. Pain: Complains of pain kj2 in headache Pain currently is 9 out of 10 on a pain scale. Neuro: Level of Consciousness is awake, alert, obeys commands, Oriented to person, place, time, situation. Cardiovascular: Patient's skin is warm and dry. Respiratory: Airway is patent. Vital Signs: 14:57 BP 124 / 74; Pulse 87; Resp 18; Temp 98.4(TE); Pulse Ox 98% on R/A; Weight 39.92 kg; cm10 Height 5 ft. 0 in. ; Pain 8/10; 15:33 BP 112 / 62; Pulse 74; Resp 20; Temp 99.1; Pulse Ox 99% on R/A; kj2 16:39 BP 111 / 74; Pulse 72; Resp 18; Temp 98.8; Pulse Ox 99% on R/A; kj2 14:57 Body Mass Index 17.19 (39.92 kg, 152.4 cm) cm10 14:57 Pain Scale: Adult cm10 ED Course: 14:47 Patient arrived in ED. mg5 14:48 Lexis Banerjee FNP-C is [facility]. kb 14:48 Tomy Lomeli MD is Attending Physician. kb 14:58 Triage completed. cm10 14:58 Arm band placed on Patient placed in an exam room, on a stretcher. cm10 15:10 CT Head Brain wo Cont In Process Unspecified. EDMS 15:16 Forearm Left XRAY In Process Unspecified. EDMS 15:22 Gloria Sue, LANG is Primary Nurse. kj2 15:35 Patient has correct armband on for positive identification. Allergy band placed. Bed in kj2 low position. Call light in reach. Provided Education on: call light, fall precautions. 16:38 Patient did not have IV access during this emergency room visit. kj2 16:39 No provider procedures requiring assistance completed. kj2 Administered Medications: No medications were administered Medication: 16:35 VIS not applicable for this client. kj2 Outcome: 16:09 Discharge ordered by MD. villatoro 16:37 Discharged to kj2 16:38 Condition: stable kj2 16:38 Discharge instructions given to patient, Instructed on discharge instructions, follow up and referral plans. Demonstrated understanding of instructions, follow-up care, 16:46 Patient left the ED. kj2 Signatures: Dispatcher [employer] EDLexis Izaguirre, INPATIENT AUDITOR-C SANTIAGO-Lina Enciso, RN RN cm10 Luana Silveira mg5 Gloria Sue, RN RN kj2
--- NOTE | 2024-06-28 16:10 | EDPHYS ---
Physician Documentation [facility] Name: Blank Armenta Age: 28 yrs Sex: Female : 1995 Arrival Date: 06/28/2024 Time: 14:43 Bed 17 Private MD: ED Physician Tomy Lomeli HPI: 06/28 21:16 This 28 yrs old Female presents to ER via Wheelchair with complaints of Fall kb Injury, Headache. 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 States she was trying to carry a glass door to throw it away and accidentally fell off of the porch. Denies loc. States she hit her arm and head. States she was able to get up and ambulate. . 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 - Infectious Disease History:: Denies. - Social history:: Smoking status: Patient denies any tobacco usage or history of. ROS: 21:11 Constitutional: As per HPI kb Exam: 21:11 Constitutional: This is a well developed, well nourished patient who is awake, alert, kb and in no acute distress. ENT: Moist Mucous membranes Cardiovascular: Regular rate Respiratory: Respirations even and unlabored. No increased work of breathing. Talking in full sentences Abdomen/GI: Soft, non-tender. No distention Skin: Warm, dry with normal turgor. Normal color. Neuro: Awake and alert, GCS 15, oriented to person, place, time, and situation. Moves all extremities. Normal gait. 21:11 Head/face: Noted is no obvious of injury or deformity except hematoma, that is mild, of the forehead, 21:11 Musculoskeletal/extremity: Extremities: grossly normal except: noted in the left forearm: abrasion, pain, swelling, ROM: intact in all extremities, Circulation is intact in all extremities. Sensation intact. Weight bearing: able to fully bear weight, Vital Signs: 14:57 BP 124 / 74; Pulse 87; Resp 18; Temp 98.4(TE); Pulse Ox 98% on R/A; Weight 39.92 kg; cm10 Height 5 ft. 0 in. ; Pain 8/10; 15:33 BP 112 / 62; Pulse 74; Resp 20; Temp 99.1; Pulse Ox 99% on R/A; kj2 16:39 BP 111 / 74; Pulse 72; Resp 18; Temp 98.8; Pulse Ox 99% on R/A; kj2 14:57 Body Mass Index 17.19 (39.92 kg, 152.4 cm) cm10 14:57 Pain Scale: Adult cm10 MDM: 14:49 Patient medically screened. kb 21:16 Differential diagnosis: abrasion, closed head injury, contusion, fracture. Data kb reviewed: vital signs, nurses notes. Counseling: I had a detailed discussion with the patient and/or guardian regarding the historical points, exam findings, and any diagnostic results supporting the discharge/admit diagnosis, radiology results, the need for outpatient follow up, a family practitioner, to return to the emergency department if symptoms worsen or persist or if there are any questions or concerns that arise at home. 21:16 I considered the following discharge prescriptions or medication management in the emergency department I discussed and recommended Over The Counter medications. 06/28 14:56 Order name: Forearm Left XRAY; Complete Time: 15:24 kb 06/28 14:56 Order name: CT Head Brain wo Cont; Complete Time: 15:24 kb Administered Medications: No medications were administered Disposition: 06/29 07:04 Co-signature as Attending Physician, Tomy Lomeli MD I reviewed the patient's care rn provided by the Advanced Practice Provider and agree with the diagnosis and treatment plan. Disposition Summary: 06/28/24 16:09 Discharge Ordered Notes: Location: Home kb Condition: Stable kb Diagnosis - Unspecified injury of head, initial encounter kb - Pain in left forearm kb Followup: kb - With: Private Physician - When: 2 - 3 days - Reason: Recheck today's complaints, Continuance of care, Re-evaluation by your physician Followup: kb - With: Emergency Department - When: As needed - Reason: Worsening of condition Discharge Instructions: - Discharge Summary Sheet kb - Musculoskeletal Pain kb - Head Injury, Adult, [id number] kb Forms: - Medication Reconciliation Form kb - Antibiotic Education kb - Prescription Opioid Use kb - Patient Portal Instructions kb - Leadership Thank You Letter kb Signatures: Dispatcher [employer] Lexis Vigil, NANCY HENDERSON-Tomy Aggarwal MD MD rn Lina Graff RN RN cm10
[2024-06-28 16:52] VITALS: O2SAT 99
[2024-06-28 16:54] VITALS: BP 111/74; TEMP 98.8
== END 2024-06-28 16:46 | disposition home or self-care (01) ==
LOC: ER 14:43
DX: S09.90XA Unspecified injury of head, initial encounter (principal); M79.632 Pain in left forearm; R51.9 Headache, unspecified
CPT/HCPCS: 70450